=== PATIENT | male | born 1985 | race African-American/Black ===

== ENCOUNTER 2017-06-13 12:27 | Emergency (ER) | payer MEDICAID ==
--- NOTE | 2017-06-13 13:57 | ER Document Report ---
ED ENT - General Chief Complaint: Sore Throat Stated Complaint: SORE THROAT Time Seen by Provider: 06/13/17 12:47 Mode of Arrival: Ambulatory Information source: Patient Notes: 31-year-old male presents to ED for complaint of sore throat 3 days with cough. TRAVEL OUTSIDE OF THE [place] IN LAST 30 DAYS: No - HPI Patient complains to provider of: Nose problem, Throat problem Onset: Other Onset/Duration: Gradual - 3 days Severity: Moderate Pain Level: 4 Context: Recent Illness Location of pain: Nose, Sinus, Throat Associated symptoms: Runny nose, Sinus drainage, Sore throat Similar symptoms previously: Yes Recently seen / treated by doctor: No - Related Data Allergies/Adverse Reactions: No Known Allergies Allergy (Verified 06/13/17 12:31) Past Medical History - General Information source: Patient - Social History Smoking Status: Never Smoker Chew tobacco use (# tins/day): No Frequency of alcohol use: None Drug Abuse: None Family History: Reviewed & Not Pertinent Patient has suicidal ideation: No Patient has homicidal ideation: No - Past Medical History Cardiac Medical History: Reports: None Pulmonary Medical History: Reports: None EENT Medical History: Reports: None Neurological Medical History: Reports: None Endocrine Medical History: Reports: None Renal/ Medical History: Reports: None Malignancy Medical History: Reports None GI Medical History: Reports: None Musculoskeltal Medical History: Reports None Skin Medical History: Reports None Psychiatric Medical History: Reports: None Traumatic Medical History: Reports: None Infectious Medical History: Reports: None Surgical Hx: Negative Past Surgical History: Reports: None - Immunizations Immunizations up to date: Yes Hx Diphtheria, Pertussis, Tetanus Vaccination: Yes Review of Systems - Review of Systems Constitutional: Recent illness EENT: No symptoms reported, Nose discharge, Sinus discharge, Throat pain, Mouth pain Cardiovascular: No symptoms reported Respiratory: No symptoms reported Gastrointestinal: No symptoms reported Genitourinary: No symptoms reported Male Genitourinary: No symptoms reported Musculoskeletal: No symptoms reported Skin: No symptoms reported Hematologic/Lymphatic: No symptoms reported Neurological/Psychological: No symptoms reported Physical Exam - Vital signs Vitals: Temp Pulse Resp BP Pulse Ox 98.8 F 86 16 145/97 H 97 06/13/17 12:30 06/13/17 12:30 06/13/17 12:30 06/13/17 12:30 06/13/17 12:30 Interpretation: Normal - General General appearance: Appears well, Alert - HEENT Head: Normocephalic, Atraumatic Eyes: Normal Pupils: PERRL Ears: Normal External canal: Normal Tympanic membrane: Normal Sinus: Normal Nasal: Purulent discharge, Swelling Mouth/Lips: Normal Mucous membranes: Normal Pharynx: Post nasal drainage, Other - Entire upper palate and tongue were coated with white patches. No exudative tonsils but he did have post nasal drip. Neck: Normal - Respiratory Respiratory status: No respiratory distress Chest status: Nontender Breath sounds: Normal Chest palpation: Normal - Cardiovascular Rhythm: Regular Heart sounds: Normal auscultation Murmur: No - Abdominal Inspection: Normal Distension: No distension Bowel sounds: Normal Tenderness: Nontender Organomegaly: No organomegaly - Back Back: Normal, Nontender - Extremities General upper extremity: Normal inspection, Nontender, Normal color, Normal ROM , Normal temperature General lower extremity: Normal inspection, Nontender, Normal color, Normal ROM , Normal temperature, Normal weight bearing. No: Florentin's sign - Neurological Neuro grossly intact: Yes Cognition: Normal Orientation: AAOx4 Willy Coma Scale Eye Opening: Spontaneous Mcdade Coma Scale Verbal: Oriented Willy Coma Scale Motor: Obeys Commands Willy Coma Scale Total: 15 Speech: Normal Motor strength normal: LUE, RUE, LLE, RLE Sensory: Normal - Psychological Associated symptoms: Normal affect, Normal mood - Skin Skin Temperature: Warm Skin Moisture: Dry Skin Color: Normal Course - Re-evaluation Re-evalutation: 06/13/17 21:02 Entire roof of mouth and tongue were coated with white. Definite candidemia. Patient denies any autoimmune disease or any past medical history. Discussed with Dr. Pena and he wanted Accu-Chek and HIV testing patient refused states he was getting that done at the end of the month. Prescription for Magic mouthwash and nystatin called into [facility] on [address]. Patient was given instructions on how to get to below as this was the cheapest place for him to get it and he does not have insurance. He stated that he would go there is soon as he left the hospital to get this medicine for his very sore throat. - Vital Signs Vital signs: Temp Pulse Resp BP Pulse Ox 98.3 F 78 16 147/96 H 100 06/13/17 14:22 06/13/17 14:22 06/13/17 12:30 06/13/17 14:22 06/13/17 14:22 Discharge - Discharge Clinical Impression: Thrush of mouth and esophagus Condition: Stable Disposition: HOME, SELF-CARE Instructions: Family Physicians / Practices, Oral Thrush ([facility]) Additional Instructions: I have called in a prescription for you for Magic mouthwash and nystatin mouthwash to [facility] on [address]. He will have these medications ready for you when you get there. The phone number for [facility] is is [phone]. They are open to 8 PM tonight. Please brush your tongue and upper mouth 3 times a day until this is cleared. Please make sure you follow-up with your testing for HIV and diabetes and other testing that she stated you are doing next month. Forms: Elevated Blood Pressure
[2017-06-13 14:22] VITALS: BP 147/96
== END 2017-06-13 14:28 | disposition home or self-care (01) ==
LOC: ER 12:27
DX: B37.0 Candidal stomatitis (principal); R05 Cough
CPT/HCPCS: 87070; 87880; 99283

== ENCOUNTER 2017-06-20 13:17 | Emergency (ER) | payer MEDICAID ==
[2017-06-20] MEDS ORDERED: ALBUTEROL SULFATE 0.083% NEB 2.5 MG/3 ML AMPUL NEB ONE (14:04)
--- NOTE | 2017-06-20 14:04 | ER Document Report ---
HPI - HPI Patient complains to provider of: body aches, sore throat, cough Pain Level: 4 Context: Patient is a 31-year-old male who presents emergency department with multiple complaints. Patient states that he was seen here 6 days ago and diagnosed with thrush and sent home with mouth watch which he only started 2 days ago. He presents today complaining of cough and body aches. States he does not have a thermometer at home but admits to fevers and chills. States he has been taking cold medicine sparingly but denies any frequent Motrin, Tylenol. Otherwise he denies any ear pain but admits to runny nose and sore throat but that is improving with the mouthwash. He admits to nonproductive cough denies any nausea vomiting abdominal pain. Also admits to decreased appetite. States he did not receive a flu vaccine this year. Review of the chart shows that he was offered to be worked up for diabetes and HIV at his last visit which he declined. Patient at this time states he has an appointment on July 01 with [facility] for screening of these conditions. He again is declining any workup for those at this time. - REPRODUCTIVE Reproductive: DENIES: : Past Medical History - Social History Smoking Status: Current Some Day Smoker Family History: Reviewed & Not Pertinent Renal/ Medical History: Denies: Hx Peritoneal Dialysis - Immunizations Immunizations up to date: Yes Hx Diphtheria, Pertussis, Tetanus Vaccination: Yes Vertical Provider Document - CONSTITUTIONAL Notes: PHYSICAL EXAM GENERAL: Alert, interacts well. HEAD: Normocephalic, atraumatic. EYES: Pupils equal, round, and reactive to light. Extraocular movements intact. ENT: Ears without any evidence of external auditory canal erythema, cerumen impaction. Tympanic membranes intact without bulging, injection, effusion. Oral mucosa moist, tongue midline. Posterior pharynx and soft palate covered with thrush. Uvula midline. Airway patent. No evidence of tonsillar enlargement, peritonsillar abscess, retropharyngeal abscess. NECK: Full range of motion. Supple. Trachea midline. LUNGS: Decreased air movement noted bilaterally without wheezes, rales, or rhonchi. No respiratory distress. HEART: Regular rate and rhythm. No murmurs, gallops, or rubs. ABDOMEN: Soft, nondistended, nontender. No guarding, rebound, or rigidity.. Bowel sounds present in all 4 quadrants. EXTREMITIES: Moves all 4 extremities spontaneously. No edema, radial and dorsalis pedis pulses 2/4 bilaterally. No cyanosis. NEUROLOGICAL: Alert and oriented x4. Normal speech. PSYCH: Normal affect, normal mood. SKIN: Warm, dry, normal turgor. No rashes or lesions noted. - INFECTION CONTROL TRAVEL OUTSIDE OF THE [place] IN LAST 30 DAYS: No - RESPIRATORY O2 Sat by Pulse Oximetry: 98 Course - Re-evaluation Re-evalutation: 06/20/17 14:05 Patient is a 31-year-old male who presents emergency department with a chief complaint of URI symptoms associated body aches. Patient is hemodynamically stable, no acute distress and afebrile. Presentation is consistent with URI with associated thrush. Patient remains to decline any workup for HIV or diabetes at this time. Patient states that he is following up with [facility] for this evaluation. Patient 06/20/17 15:00 Discharge vitals with an elevated temp. Given this and reported cough and body aches sent for chest x-ray and screening lab work ordered. No evidence of acute infiltrate on chest x-ray. No evidence of leukocytosis or anemia noted on white blood cell CBC. Chemistry without evidence of AK I her elevated creatinine kinase. Patient states he feels much better after IV fluids and Motrin. Discussed with him to continue aggressive fluid management and Motrin will discharge home with steroid pack. Otherwise patient to follow-up with [facility] as scheduled. - Vital Signs Vital signs: Temp Pulse Resp BP Pulse Ox 99.2 F 98 16 139/95 H 98 06/20/17 13:23 06/20/17 13:23 06/20/17 13:23 06/20/17 13:23 06/20/17 13:23 - Laboratory Result Diagrams: 06/20/17 15:08 06/20/17 15:08 - Diagnostic Test Radiology reviewed: Image reviewed, Reports reviewed Discharge - Discharge Clinical Impression: Thrush of mouth and esophagus URI (upper respiratory infection) Qualifiers: URI type: unspecified viral URI Qualified Code(s): J06.9 - Acute upper respiratory infection, unspecified Condition: Good Disposition: HOME, SELF-CARE Instructions: Viral Syndrome ([facility]) Additional Instructions: Please keep your appointment with [facility] for outpatient testing Prescriptions: Methylprednisolone [Medrol Dosepack (4 mg/Tab) 21 Tab/Dosepak] 4 mg PO ASDIR PRN #21 tab.ds.pk PRN Reason:
[2017-06-20] MEDS ORDERED: IBUPROFEN 800 MG TABLET PO ONE (14:46)
[2017-06-20] MEDS ORDERED: NORMAL SALINE 1000 ML 1,000 ML IV PRN (14:53)
--- NOTE | 2017-06-20 15:07 | RADIOLOGY REPORT (SQ) ---
EXAM DESCRIPTION: CHEST PA/LAT COMPLETED DATE/TIME: 06/20/2017 2:59 pm REASON FOR STUDY: cough fever COMPARISON: 07/24/2016 EXAM PARAMETERS: NUMBER OF VIEWS: two views TECHNIQUE: Digital Frontal and Lateral radiographic views of the chest acquired. RADIATION DOSE: NA LIMITATIONS: none FINDINGS: LUNGS AND PLEURA: No opacities, masses or pneumothorax. No pleural effusion. MEDIASTINUM AND HILAR STRUCTURES: No masses or contour abnormalities. HEART AND VASCULAR STRUCTURES: Heart normal size. No evidence for failure. BONES: No acute findings. HARDWARE: None in the chest. OTHER: No other significant finding. IMPRESSION: NO SIGNIFICANT RADIOGRAPHIC FINDING IN THE CHEST. TECHNICAL DOCUMENTATION: JOB ID: [id number] [employer]- All Rights Reserved
[2017-06-20 15:28] LABS: ABSOLUTE LYMPHOCYTES (AUTO) 1.7 10^3/uL (0.5-4.7); ABSOLUTE MONOCYTES (AUTO) 0.8 10^3/uL (0.1-1.4); ABSOLUTE NEUT (AUTO) 5.8 10^3/uL (1.7-8.2); BASOPHILS % (AUTO) 0.1 % (0-2); EOSINOPHILS % (AUTO) 0.1 % (0-6); HEMATOCRIT 37.9 % (37.9-51.0); HEMOGLOBIN 13.1 g/dL (13.5-17.0); HGB HCT DIFFERENCE 1.4; LYMPHOCYTES % (AUTO) 20.5 % (13-45); MEAN CORPUSCULAR HEMOGLOBIN 31.5 pg (27.0-33.4); MEAN CORPUSCULAR HGB CONC 34.5 g/dL (32.0-36.0); MEAN CORPUSCULAR VOLUME 91 fl (80-97); MONOCYTES % (AUTO) 9.9 % (3-13); RED BLOOD COUNT 4.15 10^6/uL (4.35-5.55); RED CELL DISTRIBUTION WIDTH 13.8 % (11.5-14.0); SEGMENTED NEUTROPHILS % (AUTO) 69.4 % (42-78); WHITE BLOOD COUNT 8.3 10^3/uL (4.0-10.5)
[2017-06-20 15:41] LABS: ALANINE AMINOTRANSFERASE 33 U/L (21-72); ALBUMIN 3.5 g/dL (3.5-5.0); ALKALINE PHOSPHATASE 96 U/L (38-126); ANION GAP 14 (5-19); ASPARTATE AMINO TRANSFERASE 47 U/L (17-59); BILIRUBIN,DIRECT 0.5 mg/dL (0.0-0.4); BLOOD UREA NITROGEN 12 mg/dL (7-20); CALCIUM 8.9 mg/dL (8.4-10.2); CARBON DIOXIDE 27 mmol/L (22-30); CHLORIDE 100 mmol/L (98-107); CREATINE KINASE 45 U/L (55-170); CREATININE RESULT 1.11 mg/dL (0.52-1.25); GLUCOSE 95 mg/dL (75-110); POTASSIUM 3.8 mmol/L (3.6-5.0); TOTAL PROTEIN 9.7 g/dL (6.3-8.2)
[2017-06-20 16:00] VITALS: BP 141/78
== END 2017-06-20 16:00 | disposition home or self-care (01) ==
LOC: ER 13:17
DX: J06.9 Acute upper respiratory infection, unspecified (principal); B37.81 Candidal esophagitis; B37.0 Candidal stomatitis; M79.1 Myalgia; F17.200 Nicotine dependence, unspecified, uncomplicated
CPT/HCPCS: 94640; 99284; 96360; 36415; 82550; 85025; 80053; 71020; J3490; J7030

== ENCOUNTER 2017-08-21 13:28 | Emergency (ER) | payer MEDICAID ==
--- NOTE | 2017-08-21 15:58 | RADIOLOGY REPORT (SQ) ---
EXAM DESCRIPTION: HIP LEFT AP/LATERAL COMPLETED DATE/TIME: 08/21/2017 3:51 pm REASON FOR STUDY: fall, pain COMPARISON: None. NUMBER OF VIEWS: Two views. TECHNIQUE: AP pelvis and additional frog-leg view of the left hip. LIMITATIONS: None. FINDINGS: MINERALIZATION: Normal. LEFT HIP: No fracture or dislocation. No worrisome bone lesions. RIGHT HIP: No fracture or dislocation. No worrisome bone lesions. PUBIS AND ISCHIUM: No fracture. PELVIS: No fracture. SACRUM: No fracture or dislocation. No worrisome bone lesions. LOWER LUMBAR SPINE: No fracture or dislocation. No worrisome bone lesions. No significant disc disea se. SOFT TISSUES: No findings. OTHER: No other significant finding. IMPRESSION: NEGATIVE STUDY OF THE LEFT HIP AND PELVIS. NO RADIOGRAPHIC EVIDENCE OF ACUTE INJURY. TECHNICAL DOCUMENTATION: JOB ID: [id number] [employer]- All Rights Reserved
--- NOTE | 2017-08-21 15:58 | RADIOLOGY REPORT (SQ) ---
EXAM DESCRIPTION: WRIST LEFT 3 VIEWS COMPLETED DATE/TIME: 08/21/2017 3:51 pm REASON FOR STUDY: fall, pain COMPARISON: None. NUMBER OF VIEWS: Three views. TECHNIQUE: AP, lateral, and oblique radiographic images acquired of the left wrist. LIMITATIONS: None. FINDINGS: MINERALIZATION: Normal. BONES: No acute fracture or dislocation. No worrisome bone lesions. Normal alignment. SOFT TISSUES: No soft tissue swelling. No foreign body. OTHER: No other significant finding. IMPRESSION: NEGATIVE STUDY OF THE LEFT WRIST. NO RADIOGRAPHIC EVIDENCE OF ACUTE INJURY. TECHNICAL DOCUMENTATION: JOB ID: [id number] [employer]- All Rights Reserved
[2017-08-21 16:07] VITALS: BP 132/88
--- NOTE | 2017-08-21 16:08 | ER Document Report ---
HPI - HPI Pain Level: 5 Context: 31 yo male c/o pain to left wrist and left hip. pt fell playing basketball. Associated Symptoms: None Exacerbated by: Movement, Walking Relieved by: Denies Similar symptoms previously: No Recently seen / treated by doctor: No - ROS Systems Reviewed and Negative: Yes All other systems reviewed and negative - REPRODUCTIVE Reproductive: DENIES: : Past Medical History - General Information source: Patient - Social History Smoking Status: Never Smoker Frequency of alcohol use: Occasional Drug Abuse: None Lives with: Family Family History: Reviewed & Not Pertinent - Medical History Medical History: Negative Renal/ Medical History: Denies: Hx Peritoneal Dialysis - Immunizations Immunizations up to date: Yes Hx Diphtheria, Pertussis, Tetanus Vaccination: Yes Vertical Provider Document - CONSTITUTIONAL Agree With Documented VS: Yes Exam Limitations: No Limitations - INFECTION CONTROL TRAVEL OUTSIDE OF THE [place] IN LAST 30 DAYS: No - HEENT HEENT: Atraumatic, PERRLA - NECK Neck: Normal Inspection, Supple - RESPIRATORY Respiratory: Breath Sounds Normal, No Respiratory Distress - CARDIOVASCULAR Cardiovascular: Regular Rate, Regular Rhythm - BACK Back: Normal Inspection - MUSCULOSKELETAL/EXTREMETIES Musculoskeletal/Extremeties: Tender - left distal radial and ulnar styloid. no deformity., No Edema - distal SMC intact - NEURO Level of Consciousness: Awake, Alert, Appropriate Discharge - Discharge Clinical Impression: Left wrist sprain Qualifiers: Encounter type: initial encounter Qualified Code(s): S63.502A - Unspecified sprain of left wrist, initial encounter Contusion of left hip Qualifiers: Encounter type: initial encounter Qualified Code(s): S70.02XA - Contusion of left hip, initial encounter Condition: Stable Disposition: HOME, SELF-CARE Instructions: Sprain ([facility]), Contusion ([facility]), Temporary Splint ([facility]), Ice & Elevation ([facility]), Ibuprofen (General) ([facility]), Ultram ([facility]) Additional Instructions: Your xrays are negative for fracture use splint as needed for comfort and support ice and elevate injury as much as possible motrin and ultram as needed follow up with primary care if pain persists more than 10 days Prescriptions: Ibuprofen [Motrin 800 mg Tablet] 800 mg PO Q8H PRN #30 tab PRN Reason: Tramadol HCl [Ultram 50 mg Tablet] 50 mg PO ASDIR PRN #20 tablet PRN Reason:
== END 2017-08-21 16:12 | disposition home or self-care (01) ==
LOC: ER 13:28
DX: S63.502A Unspecified sprain of left wrist, initial encounter (principal); S70.02XA Contusion of left hip, initial encounter; W19.XXXA Unspecified fall, initial encounter; Y93.67 Activity, basketball; Y92.39 Other specified sports and athletic area as the place of occurrence of the external cause
CPT/HCPCS: 99283; 73502; 73110; L3908

== ENCOUNTER 2017-09-07 12:14 | Emergency (ER) | payer MEDICAID ==
[2017-09-07 12:23] VITALS: BP 134/95
--- NOTE | 2017-09-07 13:26 | ER Document Report ---
HPI - HPI Quality of pain: Burning Pain Level: 3 Context: Patient presents with a four-day history of thrush. Patient does have a history of HIV and states he is compliant with his antiviral medications. Patient reports that he does not have any detectable viral load at this time. Patient does follow up with his infectious disease doctor next month. Patient denies any other complaints or problems at this time. Patient states that he has been told by his infectious disease doctor that he should not smoke sometimes this can precipitate a thrush exacerbation Associated Symptoms: Other - Thrush. denies: Chest pain, Nonproductive cough, Productive cough, Fever, Nausea, Vomiting Exacerbated by: Denies Relieved by: Denies Similar symptoms previously: Yes Recently seen / treated by doctor: No - ROS ROS below otherwise negative: Yes Systems Reviewed and Negative: Yes All other systems reviewed and negative - CONSTITUTIONAL Constitutional: DENIES: Fever, Chills - EENT EENT: REPORTS: Sore Throat - RESPIRATORY Respiratory: DENIES: Trouble Breathing, Coughing - GASTROINTESTINAL Gastrointestinal: DENIES: Abdominal Pain, Nausea, Patient vomiting, Diarrhea - REPRODUCTIVE Reproductive: DENIES: : - DERM Skin Color: Normal Past Medical History - General Information source: Patient - Social History Smoking Status: Current Every Day Smoker Chew tobacco use (# tins/day): No Frequency of alcohol use: Occasional Drug Abuse: None Occupation: None Family History: Reviewed & Not Pertinent Patient has suicidal ideation: No Patient has homicidal ideation: No Renal/ Medical History: Denies: Hx Peritoneal Dialysis Infectious Medical History: Reports: Hx HIV Surgical Hx: Negative - Immunizations Immunizations up to date: Yes Hx Diphtheria, Pertussis, Tetanus Vaccination: Yes Vertical Provider Document - CONSTITUTIONAL Agree With Documented VS: Yes Exam Limitations: No Limitations General Appearance: WD/WN, No Apparent Distress - INFECTION CONTROL TRAVEL OUTSIDE OF THE [place] IN LAST 30 DAYS: No - HEENT HEENT: Atraumatic, Normocephalic Notes: Thrush to the posterior pharynx - NECK Neck: Normal Inspection, Supple. negative: Lymphadenopathy-Left, Lymphadenopathy-Right - RESPIRATORY Respiratory: Breath Sounds Normal, No Respiratory Distress O2 Sat by Pulse Oximetry: 99 - CARDIOVASCULAR Cardiovascular: Regular Rate, Regular Rhythm, No Murmur - BACK Back: Normal Inspection - MUSCULOSKELETAL/EXTREMETIES Musculoskeletal/Extremeties: MAEW - NEURO Level of Consciousness: Awake, Alert, Appropriate Motor/Sensory: No Motor Deficit - DERM Integumentary: Warm, Dry Course - Re-evaluation Re-evalutation: 09/07/17 13:21 Patient presents with findings consistent with oral candidiasis. Patient encouraged to stay compliant with his antiviral medication and to avoid cigarette smoking. Patient states that he does have an appointment with his infectious disease doctor next month and has been told in the past that it could be related to smoking in addition to his HIV status. Patient states that his viral load has not been detectable. Patient denies any fever or other presenting symptoms. - Vital Signs Vital signs: Temp Pulse Resp BP Pulse Ox 98.6 F 84 16 134/95 H 99 09/07/17 12:22 09/07/17 12:22 09/07/17 12:22 09/07/17 12:22 09/07/17 12:22 Discharge - Discharge Clinical Impression: Thrush Condition: Stable Disposition: HOME, SELF-CARE Instructions: Oral Thrush ([facility]) Additional Instructions: Return immediately for any new or worsening symptoms Followup with your primary care provider, call tomorrow to make a followup appointment Follow-up with your infectious disease doctor for recheck Avoid cigarette smoking Prescriptions: Clotrimazole 10 mg MM 5XD #50 dami Forms: Smoking Cessation Education Referrals: DEYSI HILLS DO [Primary Care Provider] - Follow up as needed
== END 2017-09-07 13:31 | disposition home or self-care (01) ==
LOC: ER 12:14
DX: B37.0 Candidal stomatitis (principal); B20 Human immunodeficiency virus [HIV] disease; F17.200 Nicotine dependence, unspecified, uncomplicated
CPT/HCPCS: 99282

== ENCOUNTER 2017-12-04 10:20 | Emergency (ER) | payer MEDICAID ==
[2017-12-04] MEDS ORDERED: KETOROLAC TROMETHAMINE INJ/PF 30 MG/1 ML SDV IV ONE (10:39)
[2017-12-04] MEDS ORDERED: NORMAL SALINE 1000 ML 1,000 ML IV ONE (10:39)
[2017-12-04] MEDS ORDERED: ACETAMINOPHEN 325 MG TABLET PO ONE (10:40)
--- NOTE | 2017-12-04 10:42 | ER Document Report ---
ED Medical Screen (RME) - General Chief Complaint: Rib Pain Stated Complaint: RIB PAIN Time Seen by Provider: 12/04/17 10:39 Mode of Arrival: Ambulatory Information source: Patient TRAVEL OUTSIDE OF THE [place] IN LAST 30 DAYS: No - HPI Patient complains to provider of: cough, fever, left cp Notes: 12/04/17 10:40 Patient is here with complaints of left-sided chest pain with fever and cough that started yesterday. Pain is worse in his left chest with cough, deep breath , movement. No fall or injury. Denies any chronic medical problems. Physical exam: Patient is nontoxic appearing and in no acute distress. He has mild tachycardia. Few scattered crackles in his lungs. In reviewing his vital signs, he is noted to be tachycardic, tachypneic as well as febrile. Plan: CBC, CMP, lactate, urine, chest x-ray, blood cultures, urine cultures, IV , normal saline, Toradol, Tylenol. An initial examination was made on the patient as part of the triage process, and it was determined a more comprehensive evaluation was necessary. Initial labs were ordered and patient was transferred to another provider in the ED who assumed care and finished evaluation and plan. - Related Data Allergies/Adverse Reactions: No Known Allergies Allergy (Verified 12/04/17 10:21) Past Medical History - Social History Frequency of alcohol use: every 2 days Drug Abuse: None Renal/ Medical History: Denies: Hx Peritoneal Dialysis Infectious Medical History: Reports: Hx HIV - Immunizations Immunizations up to date: Yes Hx Diphtheria, Pertussis, Tetanus Vaccination: Yes Physical Exam - Vital signs Vitals: Temp Pulse Resp BP Pulse Ox 101.4 F H 111 H 24 H 118/72 95 12/04/17 10:12/04/17 10:12/04/17 10:12/04/17 10:12/04/17 10:26 Course - Vital Signs Vital signs: Temp Pulse Resp BP Pulse Ox 101.4 F H 111 H 24 H 118/72 95 12/04/17 10:12/04/17 10:12/04/17 10:12/04/17 10:12/04/17 10:26
--- NOTE | 2017-12-04 11:10 | ER Document Report ---
ED General - General Chief Complaint: Rib Pain Stated Complaint: RIB PAIN Time Seen by Provider: 12/04/17 10:39 Mode of Arrival: Ambulatory Notes: The patient is a 32-year-old male, current smoker, presents with 2 days of a productive cough, fevers and right-sided chest pain that is worse when he coughs. Patient thinks he got his flu shot this year. He denies abdominal pain , syncope, recent travel, headache, neck stiffness, rash, nausea, vomiting, diarrhea, constipation or sick contacts. TRAVEL OUTSIDE OF THE [place] IN LAST 30 DAYS: No - Related Data Allergies/Adverse Reactions: No Known Allergies Allergy (Verified 12/04/17 10:21) Past Medical History - General Information source: Patient - Social History Smoking Status: Current Every Day Smoker Frequency of alcohol use: every 2 days Drug Abuse: None Family History: Reviewed & Not Pertinent Patient has suicidal ideation: No Patient has homicidal ideation: No Renal/ Medical History: Denies: Hx Peritoneal Dialysis Infectious Medical History: Reports: Hx HIV - Immunizations Immunizations up to date: Yes Hx Diphtheria, Pertussis, Tetanus Vaccination: Yes Review of Systems - Review of Systems Notes: REVIEW OF SYSTEMS: CONSTITUTIONAL: +fevers, -chills EENT: -eye pain, -difficulty swallowing, -nasal congestion CARDIOVASCULAR: +right-sided chest pain, -syncope. RESPIRATORY: +cough, -SOB GASTROINTESTINAL: -abdominal pain, -nausea, -vomiting, -diarrhea GENITOURINARY: -dysuria, -hematuria MUSCULOSKELETAL: -back pain, -neck pain SKIN: -rash or skin lesions. HEMATOLOGIC: -easy bruising or bleeding. LYMPHATIC: -swollen, enlarged glands. NEUROLOGICAL: -altered mental status or loss of consciousness, -headache, - neurologic symptoms PSYCHIATRIC: -anxiety, -depression. ALL OTHER SYSTEMS REVIEWED AND NEGATIVE. Physical Exam - Vital signs Vitals: Temp Pulse Resp BP Pulse Ox 101.4 F H 111 H 24 H 118/72 95 12/04/17 10:26 12/04/17 10:26 12/04/17 10:26 12/04/17 10:12/04/17 10:26 - Notes Notes: PHYSICAL EXAMINATION: GENERAL: Well-appearing, well-nourished and in no acute distress. HEAD: Atraumatic, normocephalic. EYES: Pupils equal round and reactive to light, extraocular movements intact, sclera anicteric, conjunctiva are normal. ENT: nares patent, oropharynx clear without exudates. Moist mucous membranes. NECK: Normal range of motion, supple without lymphadenopathy LUNGS: No respiratory distress, scattered crackles. HEART: Mild tachycardia, regular rhythm. ABDOMEN: Soft, nontender, normoactive bowel sounds. No guarding, no rebound. No masses appreciated. EXTREMITIES: Normal range of motion, no pitting or edema. No cyanosis. NEUROLOGICAL: Cranial nerves grossly intact. Normal speech, normal gait. Normal sensory and motor exams. PSYCH: Normal mood, normal affect. SKIN: Warm, Dry, normal turgor, no rashes or lesions noted. Course - Re-evaluation Re-evalutation: Patient with bilateral pneumonia on CTA, but no evidence of PE. He appears well and is in no respiratory distress. He is satting 100% on room air. He remains mildly tachycardic and mildly tachypneic, but is safe for outpatient treatment of his pneumonia. Will send home with clarithromycin and given very strict return precautions. Also counseled him on smoking cessation. - Vital Signs Vital signs: Temp Pulse Resp BP Pulse Ox 98.9 F 111 H 24 H 143/94 H 100 12/04/17 14:55 12/04/17 10:26 12/04/17 15:01 12/04/17 15:00 12/04/17 15:01 - Laboratory Result Diagrams: 12/04/17 10:52 12/04/17 10:52 Laboratory results interpreted by me: 12/04/17 12/04/17 12/04/17 10:52 10:52 10:52 WBC 10.7 H RBC 3.50 L Hgb 12.0 L Hct 33.0 L MCH 34.2 H MCHC 36.3 H Lymphocytes % 11.9 L D-Dimer 1.15 H Glucose 114 H Total Bilirubin 1.4 H Direct Bilirubin 0.7 H Total Protein 8.7 H Urine Protein Urine Ketones Urine Blood Urine Bilirubin Urine Urobilinogen Ur Leukocyte Esterase 12/04/17 11:40 WBC RBC Hgb Hct MCH MCHC Lymphocytes % D-Dimer Glucose Total Bilirubin Direct Bilirubin Total Protein Urine Protein 100 H Urine Ketones 20 H Urine Blood MODERATE H Urine Bilirubin SMALL H Urine Urobilinogen 4.0 H Ur Leukocyte Esterase TRACE H - Diagnostic Test Radiology reviewed: Image reviewed, Reports reviewed Radiology results interpreted by me: CXR: No acute consolidations or pleural effusions. There is some prominence of the bronchovascular markings extending into the left lung base which could represent peribronchial inflammatory changes. Other findings as noted above. CTA Chest: No PE. B/L lower lobe pneumonia. - EKG Interpretation by Me EKG shows normal: Sinus rhythm, Raymond, Intervals, QRS Complexes, ST-T Waves Rate: Tachycardia When compared to previous EKG there are: No significant change Discharge - Discharge Clinical Impression: Bilateral pneumonia Qualifiers: Pneumonia type: due to unspecified organism Lung location: lower lobe of lung Qualified Code(s): J18.1 - Lobar pneumonia, unspecified organism Condition: Stable Disposition: HOME, SELF-CARE Additional Instructions: PNEUMONIA: Your examination indicates that you have pneumonia. This is an infection of the lung tissue, usually caused by bacteria or a virus. Symptoms include cough, fever, shaking chills, chest pain, shortness of breath, and coughing up bloody sputum. Treatment for bacterial pneumonia includes rest, antibiotics for 10 to 14 days, increasing your clear liquid intake, a cool mist humidifier at your bedside, and fever medication. Often, a repeat chest X-ray is performed in a few weeks--even if you feel better--to ascertain whether the infection has completely resolved and no underlying lung problem is present. You should call the physician if you develop persistent vomiting, high fever that does not respond to fever medication, increasing shortness of breath , confusion, or lethargy. Also, failure to improve within two to three days is an indication for re-examination. ANTIBIOTIC THERAPY: You have been given an antibiotic prescription. It's important that you take all the medication, unless instructed otherwise by your physician. Failure to complete the entire course can result in relapse of your condition. Common side effects of antibiotics include nausea, intestinal cramping, or diarrhea. Women may develop vaginal yeast infections, and babies can get yeast (thrush) in the mouth following the use of antibiotics. Contact your physician if you develop significant side effects from this medication. Allergy to this antibiotic can result in hives, wheezing, faintness, or itching. If symptoms of allergy occur, stop the medication and call the doctor. USE OF ACETAMINOPHEN (Tylenol): Acetaminophen may be taken for pain relief or fever control. It's much safer than aspirin, offering a wider range of "safe" dosages. It is safe during . Some brand names are Tylenol, Panadol, Datril, Anacin 3, Tempra, and Liquiprin. Acetaminophen can be repeated every four hours. The following are maximum recommended dosages: WEIGHT Dose Drops Elixir Chewable( 80mg) (LBS.) drprs=droppers tsp=teaspoon 6 40 mg 0.4 ml (1/2) 6-11 80 mg 0.8 ml (full) tsp 1 tab 12-16 120 mg 1 1/2 drprs 3/4 tsp 1 1/2 tabs 17-23 160 mg 2 drprs 1 tsp 2 tabs 24-30 240 mg 3 drprs 1 1/2 tsp 3 tabs 30-35 320 mg 2 tsp 4 tabs 36-41 360 mg 2 1/4 tsp 4 1/2 tabs 42-47 400 mg 2 1/2 tsp 5 tabs 48-53 480 mg 3 tsp 6 tabs 54-59 520 mg 3 1/4 tsp 6 1/2 tabs 60-64 560 mg 3 1/2 tsp 7 tabs 65-70 600 mg 3 3/4 tsp 7 1/2 tabs 71-76 640 mg 4 tsp 8 tabs 77-82 720 mg 4 1/2 tsp 9 tabs 83-88 800 mg 5 tsp 10 tabs >89 pounds or adults 650 mg to 900 mg Acetaminophen can be repeated every four hours. Maximum dose not to exceed 4000 mg a day. These maximum recommended dosages are slightly higher than the dosages written on the product container, but these dosages are very safe and below the toxic dosage for acetaminophen. FOLLOW-UP CARE: If you have been referred to a physician for follow-up care, call the physician s office for an appointment as you were instructed or within the next two days. If you experience worsening or a significant change in your symptoms, notify the physician immediately or return to the Emergency Department at any time for re-evaluation. Prescriptions: Clarithromycin [Clarithromycin ER] 1,000 mg PO DAILY 6 Days tab.er.24h Forms: Elevated Blood Pressure Referrals: [facility] [Outside] - Follow up as needed
[2017-12-04 11:20] LABS: ABSOLUTE LYMPHOCYTES (AUTO) 1.3 10^3/uL (0.5-4.7); ABSOLUTE MONOCYTES (AUTO) 1.1 10^3/uL (0.1-1.4); ABSOLUTE NEUT (AUTO) 8.2 10^3/uL (1.7-8.2); BASOPHILS % (AUTO) 0.1 % (0-2); EOSINOPHILS % (AUTO) 0.1 % (0-6); LYMPHOCYTES % (AUTO) 11.9 % (13-45); MEAN CORPUSCULAR HEMOGLOBIN 34.2 pg (27.0-33.4); MEAN CORPUSCULAR HGB CONC 36.3 g/dL (32.0-36.0); MEAN CORPUSCULAR VOLUME 94 fl (80-97); MONOCYTES % (AUTO) 10.7 % (3-13); PLATELET COUNT 255 10^3/uL (150-450); RED CELL DISTRIBUTION WIDTH 13.6 % (11.5-14.0); SEGMENTED NEUTROPHILS % (AUTO) 77.2 % (42-78); TOTAL CELLS COUNTED % (AUTO) 100 %; WHITE BLOOD COUNT 10.7 10^3/uL (4.0-10.5)
[2017-12-04 11:37] LABS: ALANINE AMINOTRANSFERASE 27 U/L (21-72); ALBUMIN 3.6 g/dL (3.5-5.0); ALKALINE PHOSPHATASE 86 U/L (38-126); ANION GAP 10 (5-19); ASPARTATE AMINO TRANSFERASE 29 U/L (17-59); BILIRUBIN,DIRECT 0.7 mg/dL (0.0-0.4); BILIRUBIN,TOTAL 1.4 mg/dL (0.2-1.3); BLOOD UREA NITROGEN 11 mg/dL (7-20); CARBON DIOXIDE 27 mmol/L (22-30); CHLORIDE 100 mmol/L (98-107); GLUCOSE 114 mg/dL (75-110); POTASSIUM 3.8 mmol/L (3.6-5.0); SODIUM 137.4 mmol/L (137-145); TOTAL PROTEIN 8.7 g/dL (6.3-8.2)
--- NOTE | 2017-12-04 11:43 | RADIOLOGY REPORT (SQ) ---
EXAM DESCRIPTION: CHEST 2 VIEWS COMPLETED DATE/TIME: 12/04/2017 11:23 am REASON FOR STUDY: cp with cough COMPARISON: May 2017 EXAM PARAMETERS: NUMBER OF VIEWS: two views TECHNIQUE: Digital Frontal and Lateral radiographic views of the chest acquired. RADIATION DOSE: NA LIMITATIONS: none FINDINGS: LUNGS AND PLEURA: No acute consolidations or pleural effusions are identified. There is s ome prominence of the bronchovascular markings extending into the left lung base which could represen t peribronchial inflammatory changes. MEDIASTINUM AND HILAR STRUCTURES: No masses or contour abnormalities. HEART AND VASCULAR STRUCTURES: Heart normal size. No evidence for failure. BONES: No acute findings. HARDWARE: None in the chest. OTHER: No other significant finding. IMPRESSION: No acute consolidations or pleural effusions. There is some prominence of the bronchova scular markings extending into the left lung base which could represent peribronchial inflammatory ch anges. Other findings as noted above TECHNICAL DOCUMENTATION: JOB ID: [id number] [email or web address]- All Rights Reserved Reading location - IP/workstation name: [email or web address]
[2017-12-04 12:09] LABS: APPEARANCE,URINE SLIGHTLY-CLOUDY; BILIRUBIN,URINE SMALL (NEGATIVE); COLOR,URINE AMBER; GLUCOSE, URINE NEGATIVE (NEGATIVE); KETONES,URINE 20 mg/dL (NEGATIVE); LEUKOCYTE ESTERASE,URINE TRACE (NEGATIVE); NITRITE,URINE NEGATIVE (NEGATIVE); PROTEIN,URINE 100 mg/dL (NEGATIVE); URINE SPECIFIC GRAVITY 1.027
[2017-12-04 12:19] LABS: A TYPE INFLUENZA AG NEGATIVE (NEGATIVE); B INFLUENZA AG NEGATIVE (NEGATIVE)
--- NOTE | 2017-12-04 14:02 | EKG REPORT ---
SEVERITY:- BORDERLINE ECG - SINUS TACHYCARDIA NONSPECIFIC ST-T CHANGES- INFERIOR LEADS : Confirmed by: Greg Nieves MD 04-Dec-2017 14:01:29
--- NOTE | 2017-12-04 14:09 | RADIOLOGY REPORT (SQ) ---
EXAM DESCRIPTION: CTA CHEST COMPLETED DATE/TIME: 12/04/2017 1:47 pm REASON FOR STUDY: CP, SOB, tachypnea, tachycardia, elevated d-dimer COMPARISON: None. TECHNIQUE: CT scan of the chest performed using helical scanning technique with dynamic intravenous contrast injection. Images reviewed with lung, soft tissue and bone windows. Reconstructed coronal and sagittal MPR images reviewed. Additional 3 dimensional post-processing performed to develop Maximal Intensity Projection images ([place] P). All images stored on PACS. All CT scanners at this facility use dose modulation, iterative reconstruction, and/or weight based d osing when appropriate to reduce radiation dose to as low as reasonably achievable (ALARA). [facility]: Dose Right [facility]: CareDose [facility]: Dose Right [facility]: Teradose 4D [facility]: Smart Wiki-PR CONTRAST TYPE AND DOSE: contrast/concentration: Isovue 370.00 mg/ml; Total Contrast Delivered: 70.0 ml; Total Saline Delivered: 90.0 ml RENAL FUNCTION: GFR > 60. RADIATION DOSE: CT Rad equipment meets quality standard of care and radiation dose reduction techniq ues were employed. CTDIvol: 15.8 - 19.8 mGy. DLP: 641 mGy-cm. . LIMITATIONS: None. FINDINGS: LUNGS AND PLEURA: Patchy subsegmental airspace disease in the middle lobe and right lower lobe. Segmental airspace disease in the left lower lobe. No effusions. AORTA AND GREAT VESSELS: No aneurysm. HEART: No pericardial effusion. No significant coronary artery calcifications. PULMONARY ARTERIES: No emboli visualized in the main pulmonary arteries or the segmental branches. HILAR AND MEDIASTINAL STRUCTURES: Enlarged mediastinal nodes, the largest prevascular measuring 2.8 c m. Subcentimeter left hilar node. HARDWARE: None in the chest. UPPER ABDOMEN: No significant findings. Limited exam. THYROID AND OTHER SOFT TISSUES: No masses. No adenopathy. BONES: No acute or significant finding. 3D MIPS: Confirm above findings. OTHER: No other significant finding. IMPRESSION: 1. No evidence of pulmonary embolus. 2. Bilateral pneumonia. 3. Mediastinal adenopathy, probably reactive. COMMENT: Quality ID # [id number]: Final reports with documentation of one or more dose reduction techniques (e.g., Automated exposure control, adjustment of the mA and/or kV according to patient size, use of iterative reconstruction technique) TECHNICAL DOCUMENTATION: JOB ID: [id number] [employer]- All Rights Reserved Reading location - IP/workstation name: [email or web address]
[2017-12-04] MEDS ORDERED: CLARITHROMYCIN 500 MG TABLET PO ONE (14:47)
[2017-12-04 15:08] VITALS: BP 143/94
== END 2017-12-04 15:23 | disposition home or self-care (01) ==
LOC: ER 10:20
DX: J18.1 Lobar pneumonia, unspecified organism (principal); R07.81 Pleurodynia; R05 Cough; R50.9 Fever, unspecified; F17.200 Nicotine dependence, unspecified, uncomplicated; Z21 Asymptomatic human immunodeficiency virus [HIV] infection status
CPT/HCPCS: 93005; 99284; 96361; 96374; 36415; 87040; 87086; 85025; 80053; 81001; 85379; 83605; 87804; 71046; 71275; 93010; J3490 ×2; J1885; J7030

== ENCOUNTER 2017-12-05 06:56 | Emergency (ER) | payer MEDICAID ==
[2017-12-05] MEDS ORDERED: NAPROXEN 250 MG TABLET PO ONE (07:14)
[2017-12-05] MEDS ORDERED: DOXYCYCLINE HYCLATE 100 MG TABLET PO ONE (07:17)
--- NOTE | 2017-12-05 07:20 | ER Document Report ---
ED General - General Chief Complaint: Chest Pain Stated Complaint: CHEST PAIN Time Seen by Provider: 12/05/17 07:07 Mode of Arrival: Ambulatory Information source: Patient, [facility] Records Notes: 32-year-old male who was diagnosed with bilateral pneumonia off CTA yesterday started on biotics presents with complaints of chest pain. Patient notes he has not started his antibiotics. Notes symptoms have been ongoing now for 3 days patient is a smoker TRAVEL OUTSIDE OF THE [place] IN LAST 30 DAYS: No - HPI Onset: Other Onset/Duration: Persistent Quality of pain: Achy Severity: Mild Pain Level: 1 Associated symptoms: Body/muscle aches, Productive cough, Shortness of breath Exacerbated by: Coughing Relieved by: Denies Similar symptoms previously: Yes Recently seen / treated by doctor: Yes - Related Data Allergies/Adverse Reactions: No Known Allergies Allergy (Verified 12/04/17 10:21) Past Medical History - Social History Smoking Status: Current Every Day Smoker Cigarette use (# per day): Yes Chew tobacco use (# tins/day): No Smoking Education Provided: Yes - Patient counselled regarding cessation for 4 minutes Family History: Reviewed & Not Pertinent Renal/ Medical History: Denies: Hx Peritoneal Dialysis Infectious Medical History: Reports: Hx HIV - Immunizations Immunizations up to date: Yes Hx Diphtheria, Pertussis, Tetanus Vaccination: Yes Review of Systems - Review of Systems Notes: REVIEW OF SYSTEMS: CONSTITUTIONAL : Denies fever, chills, or sweats. Denies recent illness. EENT: Denies eye, ear, throat, or mouth pain or symptoms. Denies nasal or sinus congestion or discharge. Denies throat, tongue, or mouth swelling or difficulty swallowing. CARDIOVASCULAR: Denies chest pain. Denies palpitations or racing or irregular heart beat. Denies ankle edema. RESPIRATORY: Admits to productive cough chest wall pain GASTROINTESTINAL: Denies abdominal pain or distention. Denies nausea, vomiting , or diarrhea. Denies blood in vomitus, stools, or per rectum. Denies black, tarry stools. Denies constipation. GENITOURINARY: Denies difficulty urinating, painful urination, burning, frequency, blood in urine, or discharge. MUSCULOSKELETAL: Denies back or neck pain or stiffness. Denies joint pain or swelling. SKIN: Denies rash, lesions or sores. HEMATOLOGIC : Denies easy bruising or bleeding. LYMPHATIC: Denies swollen, enlarged glands. NEUROLOGICAL: Denies confusion or altered mental status. Denies passing out or loss of consciousness. Denies dizziness or lightheadedness. Denies headache. Denies weakness or paralysis or loss of use of either side. Denies problems with gait or speech. Denies sensory loss, numbness, or tingling. Denies seizures. PSYCHIATRIC: Denies anxiety or stress. Denies depression, suicidal ideation, or homicidal ideation. ALL OTHER SYSTEMS REVIEWED AND NEGATIVE. Dictation was performed using [employer] voice recognition software PHYSICAL EXAMINATION: GENERAL: Well-appearing, well-nourished and in no acute distress. HEAD: Atraumatic, normocephalic. EYES: Pupils equal round and reactive to light, extraocular movements intact, sclera anicteric, conjunctiva are normal. ENT: Nares patent, oropharynx clear without exudates. Moist mucous membranes. NECK: Normal range of motion, supple without lymphadenopathy LUNGS: Rhonchi at the bases bilateral HEART: Regular rate and rhythm without murmurs intermittently tachycardic ABDOMEN: Soft, nontender, nondistended abdomen. No guarding, no rebound. No masses appreciated. Musculoskeletal: Normal range of motion, no pitting or edema. No cyanosis. NEUROLOGICAL: Cranial nerves grossly intact. Normal speech, normal gait. Normal sensory, motor exams PSYCH: Normal mood, normal affect. SKIN: Warm, Dry, normal turgor, no rashes or lesions noted. Physical Exam - Vital signs Vitals: Temp Pulse Resp BP Pulse Ox 98.8 F 92 18 125/65 96 12/05/17 06:57 12/05/17 06:57 12/05/17 06:57 12/05/17 06:57 12/05/17 06:57 Course - Re-evaluation Re-evalutation: 12/05/17 08:01 Patient was offered to switch antibiotics, given that it is noted that clarithromycin he was having difficulty obtaining, a dose of the clarithromycin was given here I did write for the doxycycline just in case. This pain is consistent with chest wall tenderness secondary from the cough After performing a Medical Screening Examination, I estimate there is LOW risk for ACUTE CORONARY SYNDROME, PULMONARY EMBOLI, RESPIRATORY FAILURE, SEPSIS OR MENINGITIS, thus I consider the discharge disposition reasonable. I have reevaluated this patient multiple times and no significant life threatening changes are noted. The patient and I have discussed the diagnosis and risks, and we agree with discharging home with close follow-up. We also discussed returning to the Emergency Department immediately if new or worsening symptoms occur. We have discussed the symptoms which are most concerning (e.g., changing or worsening pain, trouble swallowing or breathing, neck stiffness, fever) that necessitate immediate return. - Vital Signs Vital signs: Temp Pulse Resp BP Pulse Ox 98.8 F 92 24 H 130/77 H 99 12/05/17 06:57 12/05/17 06:57 12/05/17 07:23 12/05/17 07:23 12/05/17 07:23 - Diagnostic Test Radiology reviewed: Image reviewed, Reports reviewed - CTA from previous visit reviewed by myself is consistent with bilateral pneumonia Discharge - Discharge Clinical Impression: Chest wall pain Bilateral pneumonia Qualifiers: Pneumonia type: due to unspecified organism Lung location: lower lobe of lung Qualified Code(s): J18.1 - Lobar pneumonia, unspecified organism Condition: Stable Disposition: HOME, SELF-CARE Instructions: Pneumonia (OM) Additional Instructions: Follow up with your physician tomorrow for further care or return to the ED IMMEDIATELY if symptoms worsen or new concerns occur. If you cannot afford to follow up with your primary care physician a list of low cost clinics have been provided at the end of your discharge papers as well. Prescriptions: Doxycycline Hyclate 100 mg PO BID #14 capsule Naproxen 500 mg PO BID #20 tablet
[2017-12-05] MEDS ORDERED: CLARITHROMYCIN 500 MG TABLET PO ONE (07:30)
[2017-12-05 07:43] VITALS: BP 130/77
== END 2017-12-05 07:43 | disposition home or self-care (01) ==
LOC: ER 06:56
DX: J18.1 Lobar pneumonia, unspecified organism (principal); R07.89 Other chest pain; M79.1 Myalgia; F17.210 Nicotine dependence, cigarettes, uncomplicated; B20 Human immunodeficiency virus [HIV] disease
CPT/HCPCS: 99406; 99283; J3490 ×2

== ENCOUNTER 2017-12-08 01:52 | Emergency (ER) | payer MEDICAID ==
[2017-12-08] MEDS ORDERED: KETOROLAC TROMETHAMINE 60 MG/2 ML SDV IM ONE (03:05)
--- NOTE | 2017-12-08 03:07 | ER Document Report ---
ED General - General Chief Complaint: Flank Pain Stated Complaint: LEFT SIDE PAIN Time Seen by Provider: 12/08/17 02:59 Notes: Patient is a 32-year-old male that comes emergency department for chief complaint of left-sided chest pain, difficulty taking deep breaths, and sharp pain with movement. He was seen 4 days ago, had a CTA of the chest performed and was diagnosed with bilateral pneumonia, he states he is taking the prescribed antibiotic but the area is so sore that he cannot sleep. He states he feels like a sharp pain is getting worse so he came back. He denies nausea or vomiting, dizziness or passing out. He was prescribed naproxen for pain. He smokes intermittently, drinks occasionally, denies recreational drugs, denies any medical history otherwise. TRAVEL OUTSIDE OF THE [place] IN LAST 30 DAYS: No - Related Data Allergies/Adverse Reactions: No Known Allergies Allergy (Verified 12/08/17 02:12) Past Medical History - General Information source: Patient - Social History Smoking Status: Current Some Day Smoker Frequency of alcohol use: Occasional Drug Abuse: None Lives with: Family Family History: Reviewed & Not Pertinent Renal/ Medical History: Denies: Hx Peritoneal Dialysis Infectious Medical History: Reports: Hx HIV Surgical Hx: Negative - Immunizations Immunizations up to date: Yes Hx Diphtheria, Pertussis, Tetanus Vaccination: Yes Review of Systems - Review of Systems Constitutional: No symptoms reported EENT: No symptoms reported Cardiovascular: No symptoms reported Respiratory: See HPI Gastrointestinal: No symptoms reported Genitourinary: No symptoms reported Male Genitourinary: No symptoms reported Musculoskeletal: No symptoms reported Skin: No symptoms reported Hematologic/Lymphatic: No symptoms reported Neurological/Psychological: No symptoms reported Physical Exam - Vital signs Vitals: Temp Pulse Resp BP Pulse Ox 98.0 F 93 20 113/53 L 97 12/08/17 02:16 12/08/17 02:16 12/08/17 02:16 12/08/17 02:16 12/08/17 02:16 Interpretation: Normal - General General appearance: Anxious, Other - Patient slim In distress: Mild - Patient shifting uncomfortably - HEENT Head: Normocephalic, Atraumatic Eyes: Normal Pupils: PERRL - Respiratory Respiratory status: No respiratory distress. No: Respiratory distress, Labored , Tachypnea Chest status: Tender - There is some generalized tenderness over the anterior chest wall, slightly worse on the left, no crepitus, no deformity, no abnormal erythema Breath sounds: Normal. No: Decreased air movement, Wheezing Chest palpation: Normal - Cardiovascular Rhythm: Regular. No: Tachycardia Heart sounds: Normal auscultation, S1 appreciated, S2 appreciated Murmur: No - Abdominal Inspection: Normal Distension: No distension Bowel sounds: Normal Tenderness: Nontender. No: Tender, Guarding Organomegaly: No organomegaly - Back Back: Normal, Nontender. No: Tender, Vertebra tenderness - Extremities General upper extremity: Normal inspection, Nontender, Normal color, Normal ROM , Normal temperature General lower extremity: Normal inspection, Nontender, Normal color, Normal ROM , Normal temperature, Normal weight bearing. No: Florentin's sign - Neurological Neuro grossly intact: Yes Cognition: Normal Orientation: AAOx4 Clare Coma Scale Eye Opening: Spontaneous Clare Coma Scale Verbal: Oriented Clare Coma Scale Motor: Obeys Commands Clare Coma Scale Total: 15 Speech: Normal Motor strength normal: LUE, RUE, LLE, RLE Sensory: Normal - Psychological Associated symptoms: Normal affect, Normal mood - Skin Skin Temperature: Warm Skin Moisture: Dry Skin Color: Normal Course - Re-evaluation Re-evalutation: Review of history indicates the patient has HIV. I asked him about this and he admits that he had not disclose this earlier and he does take medications for this. He believes his CD4 count is normal but he is not sure. Patient asymptomatic after Toradol. this didappeared to help his left-sided chest pain ( he is sitting up comfortably afterwards). No hypoxia, tachypnea, or abnormal lung sounds. He is nontoxic in appearance. Chest x-ray shows worsening pneumonia despite him taking clarithromycin at home. Discussed with patient, recommended additional workup including labs, IV antibiotics, and potential admission for failure of outpatient therapy. Patient declines, states that he feels better, wants to try outpatient management. Discussed the risks of this, patient agrees to return immediately if he worsens, patient will be placed on Levaquin, provided with Toradol, and patient states he has a follow-up memory care in a couple of days. Patient states he will return if he worsens. Discharged with return precautions. - Vital Signs Vital signs: Temp Pulse Resp BP Pulse Ox 97.8 F 83 18 128/78 H 98 12/08/17 05:03 12/08/17 05:03 12/08/17 05:03 12/08/17 05:03 12/08/17 05:03 Discharge - Discharge Clinical Impression: Left sided chest pain Pneumonia Qualifiers: Pneumonia type: due to unspecified organism Laterality: left Lung location: lower lobe of lung Qualified Code(s): J18.1 - Lobar pneumonia, unspecified organism Condition: Stable Disposition: HOME, SELF-CARE Additional Instructions: Your x-ray shows worsening pneumonia in the left lower lobe. I recommend that you switch to the Levaquin antibiotic since you have declined additional treatment here today. Your first does of Levaquin would be tomorrow (you received the dose for today here already). You can take Toradol for pain. Stay hydrated, rest. Follow-up with primary care. Return if you worsen in anyway including difficulty breathing, fever of 100.4 or greater, or any other concerning or worsening symptoms. Prescriptions: Ketorolac Tromethamine [Toradol 10 mg Tablet] 10 mg PO Q8HP PRN #24 tablet PRN Reason: Levofloxacin [Levaquin 750 mg Tablet] 750 mg PO DAILY #4 tablet Referrals: DEYSI HILLS DO [Primary Care Provider] - Follow up as needed
--- NOTE | 2017-12-08 04:13 | RADIOLOGY REPORT (SQ) ---
EXAM DESCRIPTION: XR CHEST 2 VIEWS CLINICAL HISTORY: 32 years Male, chest pain COMPARISON: 5.9.18, 11.23.17 FINDINGS: Adequate lung volume, moderate left lower lobar opacity, moderate left basilar effusion, normal cardiac silhouette, and intact bony thorax. IMPRESSION: Worsened moderate left lower lobar pneumonia.
[2017-12-08] MEDS ORDERED: LEVOFLOXACIN 750 MG TABLET PO ONE (04:43)
[2017-12-08 05:05] VITALS: BP 128/78
== END 2017-12-08 05:05 | disposition home or self-care (01) ==
LOC: ER 01:52
DX: J18.1 Lobar pneumonia, unspecified organism (principal); R10.9 Unspecified abdominal pain; F17.200 Nicotine dependence, unspecified, uncomplicated; B20 Human immunodeficiency virus [HIV] disease
CPT/HCPCS: 99284; 96372; 71046; J1885; J3490

== ENCOUNTER 2018-06-12 12:06 | Inpatient (IN) | payer MEDICAID ==
--- NOTE | 2018-06-12 14:25 | ER Document Report ---
ED Medical Screen (RME) - General Chief Complaint: Sore Throat Stated Complaint: DIFFICULTY SWALLOWING Time Seen by Provider: 06/12/18 13:25 Mode of Arrival: Ambulatory Information source: Patient Notes: Patient is a 32-year-old male who presents with chief complaint of sore throat times 2 days. Patient reports to this provider that he passed out in the lobby and a nurse helped him up into a wheelchair. Patient denies any history of syncope in the past, denies any history of seizures. Patient does report that he was hit in the head 1 week ago while playing basketball. Denies any loss of consciousness at that time. Patient was swabbed for strep as that is his main complaint today is possible strep throat. Patient then had another syncopal episode that was witnessed by this provider as well as security. Patient did hit his head on the ground. Patient had a approximately 15-second duration of mild tremors after the fall. Patient was then woke up, set up and was immediately assisted onto a stretcher charge nurse made aware patient moved to bed for, upgraded to ALLYN 2.. I have greeted and performed a rapid initial assessment of this patient. A comprehensive ED assessment and evaluation of the patient, analysis of test results and completion of the medical decision making process will be conducted by additional ED providers. Dictation of this chart was performed using voice recognition software; therefore, there may be some unintended grammatical errors. TRAVEL OUTSIDE OF THE [place] IN LAST 30 DAYS: No - Related Data Allergies/Adverse Reactions: No Known Allergies Allergy (Verified 06/12/18 12:17) Past Medical History - Social History Chew tobacco use (# tins/day): No Frequency of alcohol use: Social Drug Abuse: None Renal/ Medical History: Denies: Hx Peritoneal Dialysis Infectious Medical History: Reports: Hx HIV - Immunizations Immunizations up to date: Yes Hx Diphtheria, Pertussis, Tetanus Vaccination: Yes Physical Exam - Vital signs Vitals: Pulse Resp BP Pulse Ox 87 14 114/65 99 06/12/18 12:15 06/12/18 12:15 06/12/18 12:15 06/12/18 12:15 Course - Vital Signs Vital signs: Temp Pulse Resp BP Pulse Ox 87 14 114/65 99 06/12/18 12:15 06/12/18 12:15 06/12/18 12:15 06/12/18 12:15 Doctor's Discharge - Discharge Referrals: DEYSI HILLS DO [Primary Care Provider] - Follow up as needed
[2018-06-12] MEDS ORDERED: NORMAL SALINE 1000 ML 1,000 ML IV ONE (14:30)
--- NOTE | 2018-06-12 14:35 | ER Document Report ---
ED General - General Chief Complaint: Sore Throat Stated Complaint: DIFFICULTY SWALLOWING Time Seen by Provider: 06/12/18 13:25 Mode of Arrival: Ambulatory Information source: Patient Notes: Patient is a 32-year-old male who presents emergency department with complaints of a sore throat for the last 2 days. Patient states that he has a history of both strep throat and thrush. Patient states that he is concerned that he might have thrush today. Patient denies any medical problems. He denies a history of HIV. He states that he is not on any medications. While the patient was in the lobby he began feeling lightheaded. Patient had a witnessed syncopal episode. He was unresponsive for about 15 seconds. Some mild tremors were appreciated. Patient denies a history of seizures. TRAVEL OUTSIDE OF THE [place] IN LAST 30 DAYS: No - HPI Onset: Other - 2 days Onset/Duration: Gradual Quality of pain: Achy, Dull Associated symptoms: Other - Syncope Exacerbated by: Denies Relieved by: Denies Similar symptoms previously: Yes Recently seen / treated by doctor: No - Related Data Allergies/Adverse Reactions: No Known Allergies Allergy (Verified 06/12/18 12:17) Past Medical History - General Information source: Patient - Social History Smoking Status: Current Every Day Smoker Chew tobacco use (# tins/day): No Frequency of alcohol use: Social Drug Abuse: None Family History: Reviewed & Not Pertinent Patient has suicidal ideation: No Patient has homicidal ideation: No Renal/ Medical History: Denies: Hx Peritoneal Dialysis Infectious Medical History: Reports: Hx HIV - Immunizations Immunizations up to date: Yes Hx Diphtheria, Pertussis, Tetanus Vaccination: Yes Review of Systems - Review of Systems Constitutional: No symptoms reported EENT: Throat pain Cardiovascular: Syncope, Lightheaded Respiratory: No symptoms reported Gastrointestinal: No symptoms reported Genitourinary: No symptoms reported Male Genitourinary: No symptoms reported Musculoskeletal: No symptoms reported Skin: No symptoms reported Hematologic/Lymphatic: No symptoms reported Neurological/Psychological: No symptoms reported -: Yes All other systems reviewed and negative Physical Exam - Vital signs Vitals: Pulse Resp BP Pulse Ox 87 14 114/65 99 06/12/18 12:15 06/12/18 12:15 06/12/18 12:15 06/12/18 12:15 - Notes Notes: PHYSICAL EXAMINATION: GENERAL: Ill appearing HEAD: Atraumatic, normocephalic. EYES: Pupils equal round and reactive to light, extraocular movements intact, sclera anicteric, pale lower eyelids, conjunctiva are normal. ENT: Nares patent, tongue and oropharynx has white exudates that are able to be scraped off. No tonsillar deviation. Mucus membranes dry. NECK: Normal range of motion, bilateral cervical lymphadenopathy. Partoid swelling bilaterally. LUNGS: Breath sounds clear to auscultation bilaterally and equal. No wheezes rales or rhonchi. HEART: Regular rate and rhythm without murmurs ABDOMEN: Soft, nontender, nondistended abdomen. No guarding, no rebound. No masses appreciated. Rectal: Possible genital warts around the anus. No gross blood. Musculoskeletal: Normal range of motion, no pitting or edema. No cyanosis. NEUROLOGICAL: Cranial nerves grossly intact. Normal speech, normal gait. Normal sensory, motor exams PSYCH: Normal mood, normal affect. SKIN: Warm, Dry, No rashes. Course - Re-evaluation Re-evalutation: 06/12/18 15:10 EKG: Ventricular rate 81, NE interval 128, castration 80, QTc 441, normal sinus rhythm, no ischemic changes. 06/12/18 23:31 Labs and imaging obtained for patient's syncopal episode, parotid swelling, throat pain. Flu/Strep negative. CBC remarkable for leukopenia and anemia. Type and cross ordered. CT head and soft tissue neck obtained. Imaging shows bilateral cystic lesions in the parotid glands. Radiologist differential is Warthin tumor vs parotid sialocele. Anterior and posterior cervical chain lymph nodes are appreciated. Bilateral maxillary sinus mucosal thickening. I discussed the results with the patient. I told him we need to transfuse him blood as his hemoglobin is 3.9 . Patient denies melena, hematochezia, hematuria , hemetemesis. I contacted the hospitalist for admission. I spoke with Dr. Campos. He feels the patient needs to be transferred as we do not have ENT coverage. I contacted [facility] for transfer. Dr. Stapleton accepted transfer. I discussed the plan of care with the patient. He's argumentative and refuses transfer. 2 units of PRBCs ordered and transfused. Patient febrile on re- evaluation. 3rd PRBC held as the patient is having a transfusion reaction. Patient continues to refuse transfer. Says he'll leave [facility]. I contacted Dr. Beth to see if she'll admit the patient. There's no airway compromise. Patient is not having difficulty breathing or swallowing. I feel that the patient can be managed at [facility]. There's oncology available for consult. Dr. Beth came and evaluated the patient in the ED. She agrees to admit the patient. Vitals are currently stable. 06/12/18 23:33 06/12/18 23:39 - Vital Signs Vital signs: Temp Pulse Resp BP Pulse Ox 100.8 F H 89 19 108/65 100 06/12/18 21:55 06/12/18 21:50 06/12/18 21:50 06/12/18 21:41 06/12/18 21:50 - Laboratory Result Diagrams: 06/12/18 22:25 06/12/18 14:05 Laboratory results interpreted by me: 06/12/18 06/12/18 06/12/18 14:05 14:05 14:50 WBC 2.0 L RBC 1.27 L Hgb 3.9 L* Hct 11.4 L* RDW 18.2 H Band Neutrophils % 2 L Abs Neuts (Manual) 1.3 L APTT Total Protein 9.0 H Crossmatch See Detail 06/12/18 06/12/18 22:25 22:25 WBC 3.1 L RBC 1.74 L Hgb 5.4 L Hct 15.5 L RDW 16.8 H Band Neutrophils % Abs Neuts (Manual) APTT 37.5 H Total Protein Crossmatch Discharge - Discharge Clinical Impression: Parotid cyst Anemia Qualifiers: Anemia type: unspecified type Qualified Code(s): D64.9 - Anemia, unspecified Condition: Stable Disposition: ADMITTED INPATIENT Admitting Provider: Hospitalist
[2018-06-12 15:12] LABS: MEAN CORPUSCULAR HGB CONC 34.5 g/dL (32.0-36.0); MEAN CORPUSCULAR VOLUME 90 fl (80-97); PLATELET COUNT 187 10^3/uL (150-450); RED BLOOD COUNT 1.27 10^6/uL (4.35-5.55); RED CELL DISTRIBUTION WIDTH 18.2 % (11.5-14.0)
[2018-06-12] MEDS ORDERED: NORMAL SALINE 250 ML IV PRN (15:15)
[2018-06-12 15:21] LABS: HEMATOCRIT 11.4 % (37.9-51.0)
[2018-06-12 15:29] LABS: ALANINE AMINOTRANSFERASE 42 U/L (21-72); ALBUMIN 3.7 g/dL (3.5-5.0); ALKALINE PHOSPHATASE 62 U/L (38-126); ANION GAP 10 (5-19); ASPARTATE AMINO TRANSFERASE 48 U/L (17-59); BILIRUBIN,DIRECT 0.2 mg/dL (0.0-0.4); BILIRUBIN,TOTAL 0.3 mg/dL (0.2-1.3); BLOOD UREA NITROGEN 14 mg/dL (7-20); CALCIUM 8.6 mg/dL (8.4-10.2); CARBON DIOXIDE 26 mmol/L (22-30); CHLORIDE 106 mmol/L (98-107); GLUCOSE 97 mg/dL (75-110); POTASSIUM 4.1 mmol/L (3.6-5.0); SODIUM 142.4 mmol/L (137-145)
--- NOTE | 2018-06-12 15:30 | RADIOLOGY REPORT (SQ) ---
EXAM DESCRIPTION: CT HEAD WITHOUT COMPLETED DATE/TIME: 06/12/2018 3:16 pm REASON FOR STUDY: trauma COMPARISON: None. TECHNIQUE: Axial images acquired through the brain without intravenous contrast. Images reviewed wi th bone, brain and subdural windows. Additional sagittal and coronal reconstructions were generated. Images stored on PACS. All CT scanners at this facility use dose modulation, iterative reconstruction, and/or weight based d osing when appropriate to reduce radiation dose to as low as reasonably achievable (ALARA). [facility]: Dose Right [facility]: CareDose [facility]: Dose Right [facility]: Teradose 4D [facility]: [employer]form RADIATION DOSE: CT Rad equipment meets quality standard of care and radiation dose reduction techniq ues were employed. CTDIvol: 53.2 mGy. DLP: 1150 mGy-cm. mGy. LIMITATIONS: None. FINDINGS: VENTRICLES: Normal size and contour. CEREBRUM: No masses. No hemorrhage. No midline shift. No evidence for acute infarction. Normal gra y/white matter differentiation. No areas of low density in the white matter. CEREBELLUM: No masses. No hemorrhage. No alteration of density. No evidence for acute infarction. EXTRAAXIAL SPACES: No fluid collections. No masses. ORBITS AND GLOBE: No intra- or extraconal masses. Normal contour of globe without masses. CALVARIUM: No fracture. PARANASAL SINUSES: There is bilateral maxillary sinus mucosal thickening and a small air-fluid level of the left maxillary sinus SOFT TISSUES: There are cystic lesions of the bilateral parotid glands measuring approximately 2.3 x 1.9 cm on the left and 3.7 x 2.4 cm on the right. OTHER: No other significant finding. IMPRESSION: 1. No acute intracranial pathology. 2. Bilateral maxillary sinus mucosal thickening a small air-fluid level of the left maxillary sinus, likely related to sinus disease although facial bone fracture is not excluded. Correlate for point tenderness and suspicion of facial bone trauma and consider additional CT examination of the facial b ones to further evaluate as clinically indicated. 3. Incidental note of cystic lesions of the bilateral parotid glands measuring approximately 2.3 cm on the left and 3.7 cm on the right. Differential considerations include Warthin's tumors which are frequently bilateral and parotid sialoceles. EVIDENCE OF ACUTE STROKE: NO. COMMENT: Quality ID # [id number]: Final reports with documentation of one or more dose reduction techniques (e.g., Automated exposure control, adjustment of the mA and/or kV according to patient size, use of iterative reconstruction technique) TECHNICAL DOCUMENTATION: JOB ID: [id number] [email or web address]- All Rights Reserved Reading location - IP/workstation name: [email or web address]
[2018-06-12 15:32] LABS: A TYPE INFLUENZA AG NEGATIVE (NEGATIVE); B INFLUENZA AG NEGATIVE (NEGATIVE)
[2018-06-12 15:33] LABS: ABSOLUTE LYMPHOCYTES# (MANUAL) 0.5 10^3/uL (0.5-4.7); ABSOLUTE MONOCYTES # (MANUAL) 0.3 10^3/uL (0.1-1.4); ABSOLUTE NEUTROPHILS# (MANUAL) 1.3 10^3/uL (1.7-8.2); BAND NEUTROPHILS % (MANUAL) 2 % (3-5); BASOPHILS % (MANUAL) 0 % (0-2); EOSINOPHILS % (MANUAL) 0 % (0-6); LYMPHOCYTES % (MANUAL) 23 % (13-45); MONOCYTES % (MANUAL) 13 % (3-13); SEGMENTED NEUTROPHILS % (MAN) 62 % (42-78); TOTAL CELLS COUNTED 100
[2018-06-12 15:36] LABS: ANISOCYTOSIS 1+; PLATELET COMMENT ADEQUATE; POIKILOCYTOSIS SLIGHT; TOXIC GRANULATION SLIGHT
[2018-06-12 15:37] LABS: HEMOGLOBIN 3.9 g/dL (13.5-17.0)
--- NOTE | 2018-06-12 15:46 | RADIOLOGY REPORT (SQ) ---
EXAM DESCRIPTION: CT SOFT TISSUE NECK WITH COMPLETED DATE/TIME: 06/12/2018 3:22 pm REASON FOR STUDY: throat pain COMPARISON: Same day CT brain TECHNIQUE: Post IV contrasted scanning from skull base through lung apices with review of bone, soft tissue and lung windows. Reconstructed coronal and sagittal MPR images reviewed. All images stored on PACS. All CT scanners at this facility use dose modulation, iterative reconstruction, and/or weight based d osing when appropriate to reduce radiation dose to as low as reasonably achievable (ALARA). [facility]: Dose Right [facility]: CareDose [facility]: Dose Right [facility]: Teradose 4D [facility]: [employer] CONTRAST TYPE AND DOSE: contrast/concentration: Isovue 350.00 mg/ml; Total Contrast Delivered: 75.0 ml; Total Saline Delivered: 55.0 ml RENAL FUNCTION: None required. The patient is less than 50 years old. RADIATION DOSE: CT Rad equipment meets quality standard of care and radiation dose reduction techniq ues were employed. CTDIvol: 12.8 mGy. DLP: 420 mGy-cm. . LIMITATIONS: None. FINDINGS: SKULL BASE: Intact. MAJOR SALIVARY GLANDS: There are redemonstrated cystic lesions of the bilateral parotid glands center ed near the parotid tail junctions, measuring approximately 2.3 x 1.9 cm on the left and 3.7 x 2.4 cm on the right. LYMPHADENOPATHY: There are enlarged bilateral anterior and posterior cervical chain lymph nodes, the largest level IIA lymph nodes on the right measuring 2.4 x 1.1 cm. MUCOSAL MASSES OR ASYMMETRY: No mucosal masses or asymmetry. LARYNX/CORDS: No abnormal findings. VASCULAR STRUCTURES: The major vessels are patent. LUNG APICES: Clear. BONES: Intact. THYROID: Normal size. No masses. PARANASAL SINUSES: Bilateral maxillary sinus mucosal thickening and small nonspecific left maxillary air-fluid level OTHER: No other significant finding. IMPRESSION: 1. No evidence of retropharyngeal phlegmon or abscess given stated indication of throat pain. 2. Redemonstrated cystic lesions of the bilateral parotid glands measuring approximately 2.3 cm on t he left and 3.7 cm on the right. As on prior, differential considerations include Warthin's tumors, which are frequently bilateral, and parotid sialoceles. 3. Nonspecific enlargement of bilateral cervical lymph nodes, possibly reactive. 4. Bilateral maxillary sinus mucosal thickening and a small air-fluid level of the left maxillary si nus, nonspecific. Correlate for traumatic injury or acute sinusitis. TECHNICAL DOCUMENTATION: JOB ID: [id number] Quality ID # [id number]: Final reports with documentation of one or more dose reduction techniques (e.g., Au tomated exposure control, adjustment of the mA and/or kV according to patient size, use of iterative reconstruction technique) 2010 [employer]- All Rights Reserved Reading location - IP/workstation name: [email or web address]
[2018-06-12] MEDS ORDERED: ACETAMINOPHEN 325 MG TABLET PO ONE (21:57)
[2018-06-12 22:43] LABS: HEMATOCRIT 15.5 % (37.9-51.0); MEAN CORPUSCULAR HEMOGLOBIN 30.9 pg (27.0-33.4); MEAN CORPUSCULAR HGB CONC 34.5 g/dL (32.0-36.0); MEAN CORPUSCULAR VOLUME 90 fl (80-97); PLATELET COUNT 182 10^3/uL (150-450); RED BLOOD COUNT 1.74 10^6/uL (4.35-5.55); RED CELL DISTRIBUTION WIDTH 16.8 % (11.5-14.0); WHITE BLOOD COUNT 3.1 10^3/uL (4.0-10.5)
[2018-06-12 22:45] LABS: HEMOGLOBIN 5.4 g/dL (13.5-17.0)
[2018-06-12] MEDS ORDERED: MAG HYDROX/AL HYDROX/SIMETH SUSP 30 ML UDCUP PO PRN (23:12)
[2018-06-12] MEDS ORDERED: PROMETHAZINE HCL INJ 25 MG/1 ML VIAL IV PRN (23:12)
[2018-06-12] MEDS ORDERED: ACETAMINOPHEN 325 MG TABLET PO PRN (23:12)
[2018-06-12] MEDS ORDERED: TEMAZEPAM 15 MG CAPSULE PO PRN (23:12)
[2018-06-12] MEDS ORDERED: PROMETHAZINE HCL 25 MG TABLET PO PRN (23:12)
[2018-06-12 23:28] LABS: INTERNATIONAL RATION (INR) 1.16; PROTHROMBIN TIME 15.4 SEC (11.4-15.4)
[2018-06-12 23:29] LABS: PARTIAL THROMBOPLASTIN TIME 37.5 SEC (23.5-35.8)
[2018-06-12] MEDS ORDERED: NYSTATIN 500000 UNIT/5 ML UDCUP PO ONE (23:30)
[2018-06-12 23:39] LABS: IRON(TIBC) 180.2 ug/dL (49-181)
[2018-06-12 23:45] LABS: APPEARANCE,URINE CLEAR; BILIRUBIN,URINE NEGATIVE (NEGATIVE); COLOR,URINE YELLOW; GLUCOSE, URINE NEGATIVE (NEGATIVE); KETONES,URINE NEGATIVE (NEGATIVE); LEUKOCYTE ESTERASE,URINE NEGATIVE (NEGATIVE); NITRITE,URINE NEGATIVE (NEGATIVE); PROTEIN,URINE NEGATIVE (NEGATIVE); URINE SPECIFIC GRAVITY 1.041
[2018-06-13 00:06] LABS: URINE AMPHETAMINES SCREEN NEGATIVE; URINE BARBITURATES SCREEN NEGATIVE; URINE BENZODIAZEPINES SCREEN NEGATIVE; URINE COCAINE SCREEN NEGATIVE; URINE MARIJUANA (THC) SCREEN NEGATIVE; URINE METHADONE SCREEN NEGATIVE; URINE PHENCYCLIDINE SCREEN NEGATIVE
[2018-06-13] MEDS ORDERED: NORMAL SALINE 250 ML IV PRN (00:12)
[2018-06-13 00:49] LABS: FOLATE 4.66 ng/mL (>2.76)
--- NOTE | 2018-06-13 01:56 | PDOC H&P ---
History of Present Illness Admission Date/PCP: 06/12/18 23:12 None Patient complains of: Oral thrush History of Present Illness: REGINA SIFUENTES is a 32 year old male who denies any past medical history who came initially complaining of oral thrush, to me he denies having any sore throat but was complaining of having more saliva than the usual. He has history of oral thrush several times ago. I went through his prior admissions and he has history of HIV unknown if he takes his medications. He currently does not follow with any primary care doctor. In the emergency department while he was in the lobby he started feeling lightheaded and had a witnessed a syncopal episode, was unresponsive for 15 minutes and mild tremors were appreciated. Patient denied history of seizures. While patient was examined it was noticed a mass on the right parotid gland area , he tells me that it was secondary to a basketball ball hitting his head [address] of the head was done and it was consistent with a cystic lesion in both parotid glands right 3.7cm and left 2.3cm Laboratory came back and hemoglobin was 3.9 and hematocrit 3.9, the patient denies any bleeding through the rectum, hematemesis or hemoptysis, prior laboratory was from November this year with hemoglobin was 12 and hematocrit 33. 2 units of PRBC given and he was to get the third 1 but he spiked 100.8 temperature. Repeated hemoglobin 5.4 hematocrit 15.5 Patient also complains of diarrhea for the last month, 2 watery episodes a day with a small to moderate the stools, nonbloody. Initially it was felt that the patient was better served in a different facility that accounts with ENT but the patient declined to go as he lives with his mother and he wants her to with him Denies fever, chills, nausea, vomiting, cough, shortness of breath, swallowing problems, wheezing, chest pain, abdominal pain, frequency, hematuria, dysuria or weight loss. Tells me he is hungry and yesterday ate macaroni and cheese without any inconvenience. Past Medical History Pulmonary Medical History: Reports: Pneumonia Infectious Medical History: Reports: HIV, Other Infectious History Note: Recurrent oral thrush Past Surgical History Past Surgical History: Reports: None Social History Smoking Status: Current Some Day Smoker Frequency of Alcohol Use: Social Hx Recreational Drug Use: No Hx Prescription Drug Abuse: No Family History Family History: Reviewed & Not Pertinent Family History: Mother with brain tumor Parental Family History Reviewed: Yes Children Family History Reviewed: NA Sibling(s) Family History Reviewed.: NA Medication/Allergy Home Medications: Clarithromycin [Clarithromycin ER] 1,000 mg PO DAILY 6 Days tab.er.24h Doxycycline Hyclate 100 mg PO BID #14 capsule 12/05/17 Naproxen 500 mg PO BID #20 tablet 12/05/17 Ketorolac Tromethamine [Toradol 10 mg Tablet] 10 mg PO Q8HP PRN #24 tablet 12/08 Levofloxacin [Levaquin 750 mg Tablet] 750 mg PO DAILY #4 tablet 12/08/17 Allergies/Adverse Reactions: No Known Allergies Allergy (Verified 06/12/18 12:17) Review of Systems Review of Systems: As outlined in the HPI, all others negative Physical Exam Vital Signs: Temp Pulse Resp BP Pulse Ox 98.1 F 101 H 18 113/71 98 06/13/18 00:21 06/13/18 00:38 06/13/18 00:01 06/13/18 00:01 06/13/18 00:01 Additional comments: General appearance: Disheveled, skinny, alert and cooperative, and appears to be in no acute distress Head: Right anterior ear mass about 3 cm diameter, nontender, no erythema, no warmth, no secretion. Eyes: PEERL, EOMI, vision is grossly intact. Ears: External auditory canal and tympanic membranes clear, hearing grossly intact. Nose: No nasal discharge. Throat: Oral cavity and pharynx with oral thrush more prominent in the tongue. Pharynx unremarkable. Neck: Neck supple, nontender without lymphadenopathy, masses or thyromegaly. Cardiac: Normal S1 and S2. No S3, S4 or murmurs. Rhythm is regular. There is no peripheral edema, cyanosis or pallor. Extremities are warm and well perfused. Capillary refill is less than 2 seconds. No carotid bruits. Lungs: Clear to auscultation and percussion without rales, rhonchi, wheezing or diminished breath sounds. Not using accessory muscles. Abdomen: Positive bowel sounds. Soft. Nondistended, nontender. No guarding or rebound. No masses. No hepatosplenomegaly Extremities: No significant deformity or joint abnormality. No edema. Peripheral pulses intact. No varicosities. Neurological: Cranial nerves II through XII grossly intact. Strength and sensation symmetric and intact throughout. Reflexes 2+ throughout. Skin: Skin normal color, texture and turgor with no lesions or eruptions, warm and dry. Psychiatric: The mental examination revealed the patient was oriented to person , place, and time. The patient was able to demonstrate good judgment on recent , without hallucinations, abnormal affect or abnormal behaviors. Results Laboratory Results: 06/12/18 06/12/18 06/12/18 13:30 14:05 14:05 WBC 2.0 L RBC 1.27 L Hgb 3.9 L* Hct 11.4 L* MCV 90 MCH 31.0 MCHC 34.5 RDW 18.2 H Plt Count 187 Total Counted 100 Seg Neuts % (Manual) 62 Band Neutrophils % 2 L Lymphocytes % (Manual) 23 Monocytes % (Manual) 13 Eosinophils % (Manual) 0 Basophils % (Manual) 0 Abs Neuts (Manual) 1.3 L Abs Lymphs (Manual) 0.5 Abs Monocytes (Manual) 0.3 Absolute Eos (Manual) 0.0 Abs Basophils (Manual) 0.0 Toxic Granulation SLIGHT Platelet Comment ADEQUATE Poikilocytosis SLIGHT Anisocytosis 1+ PT INR APTT Sodium 142.4 Potassium 4.1 Chloride 106 Carbon Dioxide 26 Anion Gap 10 BUN 14 Creatinine 0.93 Est GFR ( Amer) > 60 Est GFR (Non-Af Amer) > 60 Glucose 97 Calcium 8.6 Total Bilirubin 0.3 Direct Bilirubin 0.2 AST 48 ALT 42 Alkaline Phosphatase 62 Total Protein 9.0 H Albumin 3.7 Urine Color Urine Appearance Urine pH Ur Specific [place] Urine Protein Urine Glucose (UA) Urine Ketones Urine Blood Urine Nitrite Urine Bilirubin Urine Urobilinogen Ur Leukocyte Esterase Urine WBC (Auto) Urine RBC (Auto) Urine Mucus (Auto) Urine Ascorbic Acid Stool Occult Blood Urine Opiates Screen Urine Methadone Screen Ur Barbiturates Screen Ur Phencyclidine Scrn Ur Amphetamines Screen U Benzodiazepines Scrn Urine Cocaine Screen U Marijuana (THC) Screen Influenza A (Rapid) Influenza B (Rapid) Group A Strep Rapid NEGATIVE 06/12/18 06/12/18 06/12/18 14:05 15:48 22:25 WBC 3.1 L RBC 1.74 L Hgb 5.4 L Hct 15.5 L MCV 90 MCH 30.9 MCHC 34.5 RDW 16.8 H Plt Count 182 Total Counted Seg Neuts % (Manual) Band Neutrophils % Lymphocytes % (Manual) Monocytes % (Manual) Eosinophils % (Manual) Basophils % (Manual) Abs Neuts (Manual) Abs Lymphs (Manual) Abs Monocytes (Manual) Absolute Eos (Manual) Abs Basophils (Manual) Toxic Granulation Platelet Comment Poikilocytosis Anisocytosis PT INR APTT Sodium Potassium Chloride Carbon Dioxide Anion Gap BUN Creatinine Est GFR ( Amer) Est GFR (Non-Af Amer) Glucose Calcium Total Bilirubin Direct Bilirubin AST ALT Alkaline Phosphatase Total Protein Albumin Urine Color Urine Appearance Urine pH Ur Specific [place] Urine Protein Urine Glucose (UA) Urine Ketones Urine Blood Urine Nitrite Urine Bilirubin Urine Urobilinogen Ur Leukocyte Esterase Urine WBC (Auto) Urine RBC (Auto) Urine Mucus (Auto) Urine Ascorbic Acid Stool Occult Blood NEGATIVE Urine Opiates Screen Urine Methadone Screen Ur Barbiturates Screen Ur Phencyclidine Scrn Ur Amphetamines Screen U Benzodiazepines Scrn Urine Cocaine Screen U Marijuana (THC) Screen Influenza A (Rapid) NEGATIVE Influenza B (Rapid) NEGATIVE Group A Strep Rapid 06/12/18 06/12/18 06/12/18 22:25 23:11 23:11 WBC RBC Hgb Hct MCV MCH MCHC RDW Plt Count Total Counted Seg Neuts % (Manual) Band Neutrophils % Lymphocytes % (Manual) Monocytes % (Manual) Eosinophils % (Manual) Basophils % (Manual) Abs Neuts (Manual) Abs Lymphs (Manual) Abs Monocytes (Manual) Absolute Eos (Manual) Abs Basophils (Manual) Toxic Granulation Platelet Comment Poikilocytosis Anisocytosis PT 15.4 INR 1.16 APTT 37.5 H Sodium Potassium Chloride Carbon Dioxide Anion Gap BUN Creatinine Est GFR ( Amer) Est GFR (Non-Af Amer) Glucose Calcium Total Bilirubin Direct Bilirubin AST ALT Alkaline Phosphatase Total Protein Albumin Urine Color YELLOW Urine Appearance CLEAR Urine pH 7.0 Ur Specific [place] 1.041 Urine Protein NEGATIVE Urine Glucose (UA) NEGATIVE Urine Ketones NEGATIVE Urine Blood NEGATIVE Urine Nitrite NEGATIVE Urine Bilirubin NEGATIVE Urine Urobilinogen 4.0 H Ur Leukocyte Esterase NEGATIVE Urine WBC (Auto) 1 Urine RBC (Auto) 2 Urine Mucus (Auto) RARE Urine Ascorbic Acid NEGATIVE Stool Occult Blood Urine Opiates Screen NEGATIVE Urine Methadone Screen NEGATIVE Ur Barbiturates Screen NEGATIVE Ur Phencyclidine Scrn NEGATIVE Ur Amphetamines Screen NEGATIVE U Benzodiazepines Scrn NEGATIVE Urine Cocaine Screen NEGATIVE U Marijuana (THC) Screen NEGATIVE Influenza A (Rapid) Influenza B (Rapid) Group A Strep Rapid Impressions: Head CT 06/12/18 14:31 IMPRESSION: 1. No acute intracranial pathology. 2. Bilateral maxillary sinus mucosal thickening a small air-fluid level of the left maxillary sinus, likely related to sinus disease although facial bone fracture is not excluded. Correlate for point tenderness and suspicion of facial bone trauma and consider additional CT examination of the facial bones to further evaluate as clinically indicated. 3. Incidental note of cystic lesions of the bilateral parotid glands measuring approximately 2.3 cm on the left and 3.7 cm on the right. Differential considerations include Warthin's tumors which are frequently bilateral and parotid sialoceles. EVIDENCE OF ACUTE STROKE: NO. Soft Tissue Neck CT 06/12/18 15:10 IMPRESSION: 1. No evidence of retropharyngeal phlegmon or abscess given stated indication of throat pain. 2. Redemonstrated cystic lesions of the bilateral parotid glands measuring approximately 2.3 cm on the left and 3.7 cm on the right. As on prior, differential considerations include Warthin's tumors, which are frequently bilateral, and parotid sialoceles. 3. Nonspecific enlargement of bilateral cervical lymph nodes, possibly reactive. 4. Bilateral maxillary sinus mucosal thickening and a small air-fluid level of the left maxillary sinus, nonspecific. Correlate for traumatic injury or acute sinusitis. Assessment & Plan - Diagnosis (1) Severe anemia Is this a current diagnosis for this admission?: Yes Plan: Patient comes with hemoglobin 3.9 hematocrit 11.4, patient does not seem to be symptomatic, denies any shortness of breath, chest tightness, palpitations, tells me that he has been doing his regular activities. 2 PRBCs given in the emergency department hemoglobin increased to 5.4 with hematocrit 15.5. Patient does not have any active bleeding. Occult blood in the stools was negative. I will place an order for 2 more units of PRBC. Patient had one episode of fever 100.8 yesterday after the second unit. 1 Tylenol given, will continue with transfusion when temperature improves. Anemia workup has been added to prior labs with TSH, folate, ferritin, TIBC, folate, vitamin B12 and reticulocytes. (2) Sialocele Is this a current diagnosis for this admission?: Yes Plan: Bilateral sialoceles, Lesions are not tender, there is no secretion. We do have ENT tomorrow with Dr. Crawford,, will place a consult (3) HIV disease Is this a current diagnosis for this admission?: Yes Plan: Patient denies in the ED having HIV disease and I found face and records from many months ago. Patient does not follow with any primary care, I suspect he is not taking any medication, unknown CD4 count, unknown viral load. I am sending HIV 1 and 2 antibodies. (4) Oral thrush Is this a current diagnosis for this admission?: Yes Plan: Nystatin swish and swallow (5) Acute diarrhea Is this a current diagnosis for this admission?: Yes Plan: Patient is having nonbloody diarrhea for the last 3-4 months, place an order for C. difficile, cultures and Gram stain and white blood cells. (6) DVT prophylaxis Is this a current diagnosis for this admission?: Yes Plan: Lovenox - Time Time Spent: 50 to 70 Minutes - Inpatient Certification Based on my medical assessment, after consideration of the patient's comorbidities, presenting symptoms, or acuity I expect that the services needed warrant INPATIENT care.: Yes I certify that my determination is in accordance with my understanding of Medicare's requirements for reasonable and necessary INPATIENT services [42 CFR 412.3e].: Yes Medical Necessity: Risk of Diagnosis Which Will Require Inpatient Eval/Care/ Monitoring - Risk of worsening anemia with cardiac arrest
[2018-06-13] MEDS: ENOXAPARIN SODIUM INJ 40 MG/0.4 ML DISP.SYRIN SUBCUT SCH (09:41)
[2018-06-13] MEDS: NYSTATIN 500000 UNIT/5 ML UDCUP PO SCH ×4 (10:02→21:26)
--- NOTE | 2018-06-13 10:40 | EKG REPORT ---
SEVERITY:- NORMAL ECG - SINUS RHYTHM : Confirmed by: Grady Archer 13-Jun-2018 10:39:02
--- NOTE | 2018-06-13 10:51 | PROGRESS NOTE E ---
Progress Note NAME: REGINA SIFUENTES : 1985 AGE: 32Y DATE: 06/13/2018 ROOM: 428 SUBJECTIVE: The patient is sitting on the side of the bed. The patient has just had a bowel movement. The patient has completed his fourth unit of blood, currently awaiting repeat labs. The patient is also going to be seen by ENT today. The patient himself denies any specific complaint other than his thrush, which he has received the nystatin for. The patient has been afebrile, his blood pressures have been in a good range, and the patient does not voice any concern at all at this time. REVIEW OF SYSTEMS: The rest of the review of systems is negative. MEDICATIONS: Reviewed. OBJECTIVE: GENERAL: The patient is a 32-year-old -[place] male who is cachectic, does not appear to be distressed. VITAL SIGNS: As follows: Temperature is 98.2, pulse 76, respirations 13, blood pressure is 125/91, oxygen saturation is 100% on room air. SKIN: Warm and dry. No rash, not diaphoretic. HEENT: Pupils are reactive. Mucous membranes appear moist. NECK: The patient does have lymphadenopathy throughout cervical nodes. CARDIOVASCULAR: Normal sinus rhythm. CHEST: Symmetrical, unlabored, clear throughout to auscultation. ABDOMEN: Nondistended. EXTREMITIES: There is no significant edema. PSYCHIATRIC: The patient does have somewhat flat affect and is withdrawn. DIAGNOSTICS: Lab values are as follows. Hematology obtained on 06/12/2018: WBCs are 8.1, hemoglobin 5.4, hematocrit is 25.5, platelet count is 182,000. Chemistry obtained on 06/12/2018: Sodium is 142, potassium 4.1, chloride is 106, carbon dioxide 26, BUN 14, creatinine is 0.93, glucose 97, calcium is 8.6. Iron is 180, TIBC is 250, percent saturation 72, ferritin is 461, B12 is 306, folate is 4.66. IMPRESSION AND PLAN: 1. SYMPTOMATIC SEVERE ANEMIA. The patient's hemoglobin was found to be 3.9. The patient has no evidence of overt blood loss. The patient had a hemoglobin that was normal back in November of this year. The patient does appear at this time to have pancytopenia, most likely due to underlying HIV. Will continue this transfusion and repeat labs for a goal hemoglobin of 10. 2. SIALOCELE. Will have the patient evaluated by Dr. Crawford of ENT. 3. REPORTED HIV DISEASE. It appears that the patient has been diagnosed with HIV although he has denied it to providers. Do not have definitive labs on the chart at this time, currently awaiting an HIV profile. I do have concern with the patient's severity of his Minda and so forth that he is to the stage of AIDS. Will follow. 4. ORAL THRUSH. Will continue Nystatin. DISPOSITION: THE PATIENT IS A FULL CODE. Pending the patient's symptomatology and diagnostic findings, will re-evaluate in the a.m. Time spent on this followup, including assessment/plan, physical examination, patient education, and review of records, is 25 minutes. DICTATING PHYSICIAN: LAKISHA MEZA NP [id number] PHY#: [id number] ID: [id number] JOB#: [id number] ACCT: [id number] cc: >
[2018-06-13 11:39] LABS: PATH REVIEW PATHOLOGIST REVIEWED
[2018-06-13 12:11] LABS: ABSOLUTE LYMPHOCYTES (AUTO) 1.1 10^3/uL (0.5-4.7); ABSOLUTE MONOCYTES (AUTO) 0.3 10^3/uL (0.1-1.4); ABSOLUTE NEUT (AUTO) 1.6 10^3/uL (1.7-8.2); BASOPHILS % (AUTO) 0.2 % (0-2); EOSINOPHILS % (AUTO) 0.7 % (0-6); HEMATOCRIT 20.7 % (37.9-51.0); LYMPHOCYTES % (AUTO) 37.8 % (13-45); MEAN CORPUSCULAR HEMOGLOBIN 31.3 pg (27.0-33.4); MEAN CORPUSCULAR HGB CONC 35.5 g/dL (32.0-36.0); MEAN CORPUSCULAR VOLUME 88 fl (80-97); MONOCYTES % (AUTO) 9.6 % (3-13); PLATELET COUNT 188 10^3/uL (150-450); RED BLOOD COUNT 2.35 10^6/uL (4.35-5.55); RED CELL DISTRIBUTION WIDTH 15.3 % (11.5-14.0); SEGMENTED NEUTROPHILS % (AUTO) 51.7 % (42-78); TOTAL CELLS COUNTED % (AUTO) 100 %
[2018-06-13 12:18] LABS: HEMOGLOBIN 7.3 g/dL (13.5-17.0)
[2018-06-13 12:32] LABS: ALANINE AMINOTRANSFERASE 46 U/L (21-72); ALBUMIN 3.6 g/dL (3.5-5.0); ALKALINE PHOSPHATASE 69 U/L (38-126); ANION GAP 9 (5-19); ASPARTATE AMINO TRANSFERASE 48 U/L (17-59); BILIRUBIN,DIRECT 0.1 mg/dL (0.0-0.4); BILIRUBIN,TOTAL 0.7 mg/dL (0.2-1.3); BLOOD UREA NITROGEN 11 mg/dL (7-20); CALCIUM 8.9 mg/dL (8.4-10.2); CARBON DIOXIDE 26 mmol/L (22-30); CHLORIDE 107 mmol/L (98-107); CREATINE KINASE 45 U/L (55-170); GLUCOSE 89 mg/dL (75-110); PHOSPHORUS 4.2 mg/dL (2.5-4.5); POTASSIUM 4.6 mmol/L (3.6-5.0); SODIUM 142.1 mmol/L (137-145); TOTAL PROTEIN 8.7 g/dL (6.3-8.2)
[2018-06-14 08:59] VITALS: BP 119/79
[2018-06-14] MEDS: ENOXAPARIN SODIUM INJ 40 MG/0.4 ML DISP.SYRIN SUBCUT SCH (09:01)
[2018-06-14 09:04] LABS: HEMATOCRIT 21.2 % (37.9-51.0); MEAN CORPUSCULAR HEMOGLOBIN 31.3 pg (27.0-33.4); MEAN CORPUSCULAR HGB CONC 35.4 g/dL (32.0-36.0); MEAN CORPUSCULAR VOLUME 88 fl (80-97); PLATELET COUNT 192 10^3/uL (150-450); RED CELL DISTRIBUTION WIDTH 15.5 % (11.5-14.0); WHITE BLOOD COUNT 2.8 10^3/uL (4.0-10.5)
[2018-06-14] MEDS: NYSTATIN 500000 UNIT/5 ML UDCUP PO SCH (09:04)
[2018-06-14 09:07] LABS: HEMOGLOBIN 7.5 g/dL (13.5-17.0)
--- NOTE | 2018-06-15 13:12 | DISCHARGE SUMMARY E ---
Discharge Summary NAME: REGINA SIFUENTES : 1985 AGE: 32Y ADMITTED: 06/12/2018 DISCHARGED: 06/14/2018 CODE STATUS: FULL CODE. PRIMARY CARE PROVIDER: Dr. Vikas Esquivel; ENT Dr. Giovani Crawford. DISCHARGE DIAGNOSES: Includes: 1. SEVERE ANEMIA MOST LIKELY DUE TO CHRONIC UNDERLYING DISEASE. 2. HIV, POSSIBLE AIDS. SEROLOGY IS PENDING. 3. SIALOCELE. 4. ORAL THRUSH. DISCHARGE MEDICATIONS: Include: Nystatin 500,000 units p.o. q.i.d. 200 mL with 0 refills. DIET: High calorie, high protein. ACTIVITY: As tolerated. CONDITION: Fair. DIAGNOSTICS: Lab values are as follows: Hematology obtained on 06/14/2018: WBCs are 10.8, hemoglobin is 7.5, hematocrit 21.7, platelet count is 192,000. Coagulation done 06/12/2018: PT is 50.4, INR 1.16. Chemistry obtained on 06/13/2018: Sodium is 142, potassium 4.7, chloride is 107, carbon dioxide 26, BUN 11, creatinine is 0.79. Glucose 89, calcium is 8.9, phosphorous 4.2, magnesium is 1.9, INR is 180, TIBC is 250 percent saturation is 72, ferritin is 461, bilirubin is 0.7, AST 48, ALT 46, shameka-phos 69, CK 45, total protein is 8.7, albumin 3.6, B12 is 306, folate is 4.66, TSH is 6.45, T4 is 0.90. Urinalysis obtained on 06/12/2018: Color: Yellow. Appearance: Clear. PH: 7.0. Specific [place] is 1.004. Protein: Negative. Glucose: Negative. Ketones: Negative. Occult blood: Negative. Nitrite: Negative. Bili: Negative. Urobilinogen 4.0. Leukocyte esterase is negative. WBC is , RBC is 2, mucus rare, ascorbic ascorbic acid. Other body source obtained on 06/12/2018: Stool for occult blood is negative. Other body source obtained on 06/13/2018: Stool for occult blood is negative. Other body source obtained on 06/13/2018: Stool for white blood cells is negative. Toxicology obtained on 06/12/2018: Fajardo negative. Serologies obtained on 06/12/2018: Influenza A and B are negative. Group A strep is negative. HIV antibodies are pending. HIV studies are pending. Microbiology: Throat culture obtained on 06/12/2018 reveals no growth. Stool culture obtained on 06/13/[address] Head [address] obtained on 06/12/2018 reveals no acute intracranial pathology with bilateral maxillary sinus, thickening and small air fluid level of the left maxillary sinus. Cystic lesion noted at the bilateral parotid glands measuring approximately 2.3 cm on the left and 3.7 cm on the right. PHYSICAL EXAMINATION: GENERAL: On examination, the patient is a frail, chronically ill-appearing 32-year-old -Russian male who is awake, alert, and oriented to person, place, time, and situation. He is verbal, conversational, does not appear to be in any acute distress. VITAL SIGNS: Temperature is 98.8, pulse 77, respirations 13, blood pressure is 119/79, oxygen saturation is 100% on room air. SKIN: Warm and dry. No rash. He is not diaphoretic. HEENT: Pupils equal, round and reactive to light and accommodation. Conjunctiva pink. No evidence of JVP. CARDIOVASCULAR SYSTEM: Heart is regular. No rubs. CHEST: Clear, symmetrical, unlabored. ABDOMEN: Soft, nontender. EXTREMITIES: No clubbing, cyanosis, edema. PSYCHIATRIC: The patient does have a flat affect. HISTORY OF PRESENT ILLNESS: The patient is an 32-year-old -Russian male with a past medical history of HIV. The patient presented to the Emergency Department with a chief complaint of oral thrush. According to the patient he had been salivating more than usual. He does have a history of oral thrush for which he has had multiple times. The patient in the past has seen Dr. Esquivel but is not established with primary care at the moment. The patient does not follow with infectious disease either. There has been some concern over the patient's HIV status as at times he will adamantly deny this and other times has admitted to this. The patient has not had any complete blood work regarding this diagnosis done at this facility. Therefore, I went ahead and ordered this so we could have it as part of our record. The patient does not take any antiviral medication. While in the emergency department the patient started feeling lightheaded and had a witnessed syncopal episode and was unresponsive for about 15 minutes. The patient denied any history of seizures. The patient was examined and it was noticed that he had an enlarged right parotid gland. The patient stated that he had been hit by a basketball about 2 weeks prior. In the emergency department the patient's hemoglobin returned to 3.9 and the patient denied any rectal bleeding, no hematemesis, melena, no hematochezia. The patient's previous recorded hemoglobin was from November of this year and his hemoglobin was found to be 12. The patient was referred to the hospital for admission and management. It was initially felt that the patient would be better served in a facility with ENT given that the patient does have these findings on CT, however, the patient declined and actually became belligerent when this was suggested. The patient refused to go to [place] and his mother was with him and wants him to stay here. HOSPITAL COURSE: The patient was admitted to the medical unit. The patient was typed and crossed and transfused a total of 4 units of packed red blood cells. The patient's posttransfusion hemoglobin trended up to 7.3 and 24 hours later the patient's hemoglobin is sustained at 7.5. The patient was treated with Nystatin with significant improvement of his thrush and the patient is ready for discharge. I have discussed with the patient that he absolutely needs to follow up with his primary and with infectious disease. I have explained to the patient that information and acknowledgement of the disease process could be empowering in helping him seek treatment. The patient is not open to this discussion at this time and is quite resistant to the idea of having HIV. The patient's case was discussed with Dr. Crawford with ENT who recommended the patient follow with outpatient and will have fine needle aspiration done of the parotid areas as well as his lymphadenopathy done in an outpatient basis. DISCHARGE PLANNING: The patient is advised to follow up with primary care provider within 1-2 weeks for hospital followup. Time spent on this discharge including assessment, plan, physical examination, patient education, review of records is 35 minutes. DICTATING PHYSICIAN: LAKISHA MEZA NP [id number] PHY#: [id number] ID: [id number] JOB#: [id number] ACCT: [id number] cc:Elena RIDDLE NP >
== END 2018-06-14 11:28 | disposition home or self-care (01) | DRG 809 ==
LOC: ER 12:06 → EH 23:12 → 4S 06-13 00:36
PROVIDERS: ADMIT Internal Medicine; ATTEND Internal Medicine
PROC: 30233N1 Transfusion of Nonautologous Red Blood Cells into Peripheral Vein, Percutaneous Approach (ICD-10-PCS; principal; 2018-06-12)
PROC: 30233N1 Transfusion of Nonautologous Red Blood Cells into Peripheral Vein, Percutaneous Approach (ICD-10-PCS; 2018-06-13)
DX: D61.818 Other pancytopenia (principal); B37.0 Candidal stomatitis; D63.8 Anemia in other chronic diseases classified elsewhere; Z21 Asymptomatic human immunodeficiency virus [HIV] infection status; F17.210 Nicotine dependence, cigarettes, uncomplicated; K11.6 Mucocele of salivary gland; R19.7 Diarrhea, unspecified; Z79.899 Other long term (current) drug therapy
CPT/HCPCS: 36415; 36430; 70450; 70491; 80053; 80307; 81001; 82272; 82550; 82607; 82728; 82746; 83540; 83550; 83735; 84100; 84439; 84443; 85025; 85027; 85045; 85610; 85730; 86701; 86702; 86850; 86900; 86901; 86920; 87045; 87070; 87205; 87804; 87880; 89055; 93005; 93010; 96360; 96361; 99285; J7030; P9016

== ENCOUNTER 2018-06-26 12:47 | Emergency (ER) | payer MEDICAID ==
[2018-06-26] MEDS ORDERED: NYSTATIN 500000 UNIT/5 ML UDCUP PO ONE (14:58)
[2018-06-26] MEDS ORDERED: FLUCONAZOLE 100 MG TABLET PO ONE (14:58)
--- NOTE | 2018-06-26 14:58 | ER Document Report ---
ED Oral Problem - General Chief Complaint: Mouth Problem Stated Complaint: MOUTH PROBLEM Time Seen by Provider: 06/26/18 13:58 Mode of Arrival: Ambulatory Information source: Patient Notes: 32-year-old male presented to ED for complaint of severe sore throat. He states he has had a sore throat for a while and was seen recently and given medication. He states that he lost the medication and has not been taking it and now is much worse. Patient alert and oriented respirations regular and unlabored speaking in full sentences. He does speak with a little bit of muffled to the voice but he is able to swallow pills and water. TRAVEL OUTSIDE OF THE [place] IN LAST 30 DAYS: No - HPI Patient complains to provider of: Sore throat Quality of pain: Burning Severity: Moderate Pain Level: 3 Associated symptoms: White patches in mouth - Very sore throat with large white patches Worsened by: Nothing Relieved by: Nothing Similar symptoms previously: Yes Recently seen / treated by doctor/dentist: Yes - Related Data Allergies/Adverse Reactions: No Known Allergies Allergy (Verified 06/12/18 12:17) Past Medical History - General Information source: Patient - Social History Smoking Status: Never Smoker Chew tobacco use (# tins/day): No Frequency of alcohol use: Occasional Drug Abuse: None Lives with: Parents Family History: Reviewed & Not Pertinent Patient has suicidal ideation: No Patient has homicidal ideation: No - Past Medical History Cardiac Medical History: Reports: None Pulmonary Medical History: Reports: Hx Pneumonia EENT Medical History: Reports: None Neurological Medical History: Reports: None Endocrine Medical History: Reports: None Renal/ Medical History: Reports: None Malignancy Medical History: Reports None GI Medical History: Reports: None Musculoskeletal Medical History: Reports None Skin Medical History: Reports None Psychiatric Medical History: Reports: None Traumatic Medical History: Reports: None Infectious Medical History: Reports: Hx HIV Surgical Hx: Negative Past Surgical History: Reports: None - Immunizations Immunizations up to date: Yes Hx Diphtheria, Pertussis, Tetanus Vaccination: Yes Review of Systems - Review of Systems Notes: REVIEW OF SYSTEMS: CONSTITUTIONAL : Denies fever, chills, or sweats. Denies recent illness. EENT: Patient complains of severe sore throat with large white patches to the mouth tongue and uvula and throat. Denies eye, ear, throat, or mouth pain or symptoms. Denies nasal or sinus congestion or discharge. Patient is an HIV patient who was taken medications but has been off his medications due to not being able to get into his doctor for the couple months CARDIOVASCULAR: Denies chest pain. Denies palpitations or racing or irregular heart beat. Denies ankle edema. RESPIRATORY: Denies cough, cold, or chest congestion. Denies shortness of breath, difficulty breathing, or wheezing. GASTROINTESTINAL: Denies abdominal pain or distention. Denies nausea, vomiting , or diarrhea. Denies blood in vomitus, stools, or per rectum. Denies black, tarry stools. Denies constipation. GENITOURINARY: Denies difficulty urinating, painful urination, burning, frequency, blood in urine, or discharge. MUSCULOSKELETAL: Denies back or neck pain or stiffness. Denies joint pain or swelling. SKIN: Denies rash, lesions or sores. HEMATOLOGIC : Denies easy bruising or bleeding. LYMPHATIC: Denies swollen, enlarged glands. NEUROLOGICAL: Denies confusion or altered mental status. Denies passing out or loss of consciousness. Denies dizziness or lightheadedness. Denies headache. Denies weakness or paralysis or loss of use of either side. Denies problems with gait or speech. Denies sensory loss, numbness, or tingling. Denies seizures. PSYCHIATRIC: Denies anxiety or stress. Denies depression, suicidal ideation, or homicidal ideation. ALL OTHER SYSTEMS REVIEWED AND NEGATIVE. Dictation was performed using [employer] voice recognition software PHYSICAL EXAMINATION: GENERAL: Well-appearing, well-nourished and in no acute distress. HEAD: Atraumatic, normocephalic. EYES: Pupils equal round and reactive to light, extraocular movements intact, sclera anicteric, conjunctiva are normal. ENT: Red oral mucosa with large white patches swelling to the oral mucosa. Patient has been diagnosed with HIV and yeast infections in the mouth. He states he lost his medicine and has not taken it since he was seen last. NECK: Normal range of motion, supple anterior and posterior cervical chain lymphadenopathy LUNGS: Breath sounds clear to auscultation bilaterally and equal. No wheezes rales or rhonchi. HEART: Regular rate and rhythm without murmurs ABDOMEN: Soft, nontender, nondistended abdomen. No guarding, no rebound. No masses appreciated. Musculoskeletal: Normal range of motion, no pitting or edema. No cyanosis. NEUROLOGICAL: Cranial nerves grossly intact. Normal speech, normal gait. Normal sensory, motor exams PSYCH: Normal mood, normal affect. SKIN: Warm, Dry, normal turgor, no rashes or lesions noted. Physical Exam - Vital signs Vitals: Temp Pulse Resp BP Pulse Ox 98.3 F 91 18 120/72 100 06/26/18 13:14 06/26/18 13:14 06/26/18 13:14 06/26/18 13:14 06/26/18 13:14 Course - Re-evaluation Re-evalutation: 06/26/18 16:23 After researching his old records I found that the patient is HIV positive when he came last time and was admitted. When I discussed with the patient he states he knows he has been HIV for over a year and was taken medications but that he could get in with the doctor in [place] recently so he has not been taking his medications for a while. He states that the throat is getting more sore and is getting more difficult to swallow and it feels like it is something hanging in the back of his throat. I explained to him this is due to the thrush that he needs to get back on his HIV medicines and that I would give him some Diflucan in the emergency room and nystatin swish and swallow which is what he was given last visit and at this time he needs to be sure that he does not lose the medicine he needs to use it 4 times a day as described. Patient verbalized understanding and agreement and stated he would be sure to get into with his HIV doctor and get back on his medicines as soon as possible. - Vital Signs Vital signs: Temp Pulse Resp BP Pulse Ox 98 F 86 18 118/68 100 06/26/18 15:09 06/26/18 15:09 06/26/18 15:09 06/26/18 15:09 06/26/18 15:09 Discharge - Discharge Clinical Impression: Oral thrush, HIV disease Condition: Stable Disposition: HOME, SELF-CARE Additional Instructions: Oral Thrush You have thrush. This is a yeast infection of the mucous membranes in the mouth, caused by an organism called tiago. Typical symptoms are redness, tenderness, and white spots "stuck" on the membranes. Thrush often occurs after treatment with antibiotics, particularly in infants. In adults, the infection is unusual. It usually requires further evaluation for a possible hidden disease such as diabetes or a problem with the immune system. Thrush is treated with antifungal medication. The medicine is rubbed into the cheeks. Several days are required for healing. You should return if you do not improve as expected, or if any new or unusual symptoms develop. H.I.V. Information HIV (human immunodeficiency virus) is the virus that causes AIDS. HIV attacks T-cells, part of your immune system. After an initial flu-like illness , symptoms go away for years. The virus remains active and contagious. Symptoms of AIDS begin when T-cell levels fall. These symptoms are caused by unusual infections that strike as the immune system fails. HIV is not passed by usual interpersonal contact. It is passed by contaminated needles, infected blood, or sexual contact. HIV blood testing may not be accurate during early infection. After a suspicious exposure, the HIV test can be performed initially, then repeated in two months, six months, and one year. If you are HIV-positive, you should be followed by a specialist. There is no cure for AIDS, but medication can slow the progress of the disease and control complications. Fluconazole Fluconazole (Diflucan) is an antifungal drug. It is useful for serious fungal infections, but is also excellent for oral or vaginal yeast infections. Diflucan interacts with some medicines. This is a concern if you are taking anticoagulants (such as Coumadin), phenytoin (Dilantin), cyclosporin, or oral hypoglycemics (such as tolbutamide, Orinase, glipizide, Glucotrol, glyburide, DiaBeta, Glynase, and Micronase). Be sure the doctor knows if you are taking one of these medicines. We don't know how Diflucan affects . If you are planning to become , discuss this with your doctor. Diflucan has few side effects. Minor side effects may include nausea, headache, or diarrhea. Call the doctor if you develop a skin rash, shortness of breath, or other new symptoms. FOLLOW-UP CARE: If you have been referred to a physician for follow-up care, call the physician s office for an appointment as you were instructed or within the next two days. If you experience worsening or a significant change in your symptoms, notify the physician immediately or return to the Emergency Department at any time for re-evaluation. Prescriptions: Fluconazole [Diflucan] 150 mg PO ONCE PRN #1 tablet PRN Reason: Nystatin [Mycostatin 302991 Unit/1 ml Susp 60 ml Btl] 5 ml PO QID #60 ml Referrals: DEYSI HILLS DO [Primary Care Provider] - Follow up as needed
[2018-06-26 15:11] VITALS: BP 118/68
== END 2018-06-26 15:09 | disposition home or self-care (01) ==
LOC: ER 12:47
DX: B37.0 Candidal stomatitis (principal); B20 Human immunodeficiency virus [HIV] disease; Z87.01 Personal history of pneumonia (recurrent)
CPT/HCPCS: 99283; 82962; J3490 ×2

== ENCOUNTER 2018-08-01 16:04 | Emergency (ER) | payer MEDICAID ==
[2018-08-01] MEDS ORDERED: NORMAL SALINE 250 ML IV PRN (16:54)
[2018-08-01 17:23] LABS: MEAN CORPUSCULAR HEMOGLOBIN 30.6 pg (27.0-33.4); MEAN CORPUSCULAR HGB CONC 35.9 g/dL (32.0-36.0); MEAN CORPUSCULAR VOLUME 85 fl (80-97); PLATELET COUNT 308 10^3/uL (150-450); RED BLOOD COUNT 1.17 10^6/uL (4.35-5.55); RED CELL DISTRIBUTION WIDTH 15.1 % (11.5-14.0); WHITE BLOOD COUNT 3.5 10^3/uL (4.0-10.5)
[2018-08-01 17:38] LABS: ALANINE AMINOTRANSFERASE 15 U/L (21-72); ALBUMIN 3.9 g/dL (3.5-5.0); ALKALINE PHOSPHATASE 76 U/L (38-126); ANION GAP 7 (5-19); ASPARTATE AMINO TRANSFERASE 23 U/L (17-59); BILIRUBIN,DIRECT 0.2 mg/dL (0.0-0.4); BILIRUBIN,TOTAL 0.6 mg/dL (0.2-1.3); BLOOD UREA NITROGEN 13 mg/dL (7-20); CALCIUM 8.8 mg/dL (8.4-10.2); CARBON DIOXIDE 28 mmol/L (22-30); CHLORIDE 103 mmol/L (98-107); GLUCOSE 109 mg/dL (75-110); SODIUM 138.4 mmol/L (137-145); TOTAL PROTEIN 9.3 g/dL (6.3-8.2)
[2018-08-01 17:46] LABS: HEMOGLOBIN 3.6 g/dL (13.5-17.0)
[2018-08-01 18:01] LABS: ABSOLUTE LYMPHOCYTES# (MANUAL) 0.8 10^3/uL (0.5-4.7); ABSOLUTE MONOCYTES # (MANUAL) 0.5 10^3/uL (0.1-1.4); ABSOLUTE NEUTROPHILS# (MANUAL) 2.2 10^3/uL (1.7-8.2); BASOPHILS % (MANUAL) 0 % (0-2); EOSINOPHILS % (MANUAL) 0 % (0-6); LYMPHOCYTES % (MANUAL) 24 % (13-45); MONOCYTES % (MANUAL) 14 % (3-13); SEGMENTED NEUTROPHILS % (MAN) 62 % (42-78); TOTAL CELLS COUNTED 100
[2018-08-01 18:02] LABS: ANISOCYTOSIS SLIGHT; OVALOCYTES SLIGHT; PLATELET COMMENT ADEQUATE; PLATELET LARGE PRESENT; POIKILOCYTOSIS SLIGHT; TOXIC VACUOLATION PRESENT
--- NOTE | 2018-08-01 20:56 | ER Document Report ---
ED General - General Chief Complaint: Abnormal Lab Results Stated Complaint: ABNORMAL LABS Time Seen by Provider: 08/01/18 16:53 Notes: Patient is here to receive transfusion for a low hemoglobin. Patient is HIV positive. Has no bleeding disorders or loss of blood anywhere. He had a scheduled appointment with his provider today and had blood drawn yesterday in anticipation of this visit today. He was found to have a hemoglobin of three- point sometime and was sent here for transfusion. Patient has had one previous time in mid May when he received blood transfusions. No other transfusions. Patient has not been ill in any way. Has felt somewhat tired. Does have an outbreak of shingles on his right neck. TRAVEL OUTSIDE OF THE [place] IN LAST 30 DAYS: No - Related Data Allergies/Adverse Reactions: No Known Allergies Allergy (Verified 08/01/18 16:05) Past Medical History - Social History Smoking Status: Current Every Day Smoker Chew tobacco use (# tins/day): No Drug Abuse: None Family History: Reviewed & Not Pertinent Patient has suicidal ideation: No Patient has homicidal ideation: No Pulmonary Medical History: Reports: Hx Pneumonia Psychiatric Medical History: Denies: Hx Depression Infectious Medical History: Reports: Hx HIV - Immunizations Immunizations up to date: Yes Hx Diphtheria, Pertussis, Tetanus Vaccination: Yes Review of Systems - Review of Systems Notes: CONSTITUTIONAL : Denies fever. CARDIOVASCULAR: Denies chest pain. RESPIRATORY: Denies cough, chest congestion, or shortness of breath. GASTROINTESTINAL: Denies abdominal pain or nausea, vomiting, or diarrhea. GENITOURINARY: Denies difficulty or painful urinating, urinary frequency, blood in urine. Skin: Herpetic eruption on the right neck. Physical Exam - Vital signs Vitals: Temp Pulse Resp BP Pulse Ox 99.5 F 112 H 22 H 120/58 L 100 08/01/18 16:23 08/01/18 16:23 08/01/18 16:23 08/01/18 16:23 08/01/18 16:23 Interpretation: Normal Notes: PHYSICAL EXAMINATION: GENERAL: Well-appearing, no acute distress. HEAD: Atraumatic, normocephalic. NECK: Normal range of motion, supple. LUNGS: Breath sounds clear and equal bilaterally. HEART: Regular rate and rhythm without murmurs heard. ABDOMEN: Soft, nontender. No guarding or rebound or masses felt. Skin: Right neck as a herpetic vesicular eruption Course - Re-evaluation Re-evalutation: 08/01/18 20:54 Patient's hemoglobin is 3.6. We will plan on giving him 4 units of packed cells. - Vital Signs Vital signs: Temp Pulse Resp BP Pulse Ox 99.2 F 123 H 17 141/114 H 100 08/01/18 20:25 08/01/18 19:25 08/01/18 20:25 08/01/18 20:25 08/01/18 20:01 - Laboratory Result Diagrams: 08/01/18 17:00 08/01/18 17:00 Laboratory results interpreted by me: 08/01/18 08/01/18 08/01/18 17:00 17:00 17:00 WBC 3.5 L RBC 1.17 L Hgb 3.6 L* Hct 10.0 L* RDW 15.1 H Monocytes % (Manual) 14 H ALT 15 L Total Protein 9.3 H Crossmatch See Detail Discharge - Discharge Clinical Impression: Anemia Condition: Stable Disposition: HOME, SELF-CARE Additional Instructions: Anemia, Iron Deficiency You have anemia (a lower than normal amount of red blood cells). Our tests show it's due to lack of iron in your body. In infants and children, iron deficiency is usually due to lack of iron in the diet. In adults, it's most often caused by blood loss (heavy periods or intestinal bleeding) or by . If the cause of iron deficiency is not clear, we evaluate for hidden i ntestinal bleeding. Another possible cause is failure to absorb iron properly. Iron-deficiency is treated with iron supplements. Iron pills can upset your stomach and cause constipation. Taking it with food decreases nausea. Expect the stool to become darker (but not black). Taking iron with a juice high in vitamin C (orange juice, tomato juice) increases absorption. You can increase your dietary iron by eating liver, oysters, and lean beef; wheat germ, peas, and lentils; and molasses, dried prunes, spinach, and broccoli. Contact the doctor at once if you note black or tarry-looking stools, bloody vomiting, shortness of breath, chest pain, or faintness. FOLLOW-UP CARE: If you have been referred to a physician for follow-up care, call the physicians office for an appointment as you were instructed or within the next two days. If you experience worsening or a significant change in your symptoms, notify the physician immediately or return to the Emergency Department at any time for re-evaluation.
[2018-08-02 08:58] LABS: HEMATOCRIT 22.3 % (37.9-51.0); MEAN CORPUSCULAR HEMOGLOBIN 29.7 pg (27.0-33.4); MEAN CORPUSCULAR HGB CONC 35.5 g/dL (32.0-36.0); MEAN CORPUSCULAR VOLUME 84 fl (80-97); PLATELET COUNT 310 10^3/uL (150-450); RED BLOOD COUNT 2.67 10^6/uL (4.35-5.55); RED CELL DISTRIBUTION WIDTH 14.9 % (11.5-14.0); WHITE BLOOD COUNT 4.2 10^3/uL (4.0-10.5)
[2018-08-02 09:00] LABS: HEMOGLOBIN 7.9 g/dL (13.5-17.0)
[2018-08-02 09:23] VITALS: BP 141/95
[2018-08-04 15:49] LABS: PATH REVIEW PATHOLOGIST REVIEWED
== END 2018-08-02 09:23 | disposition home or self-care (01) ==
LOC: ER 16:04
DX: D64.9 Anemia, unspecified (principal); B02.9 Zoster without complications; R53.83 Other fatigue; Z21 Asymptomatic human immunodeficiency virus [HIV] infection status; F17.200 Nicotine dependence, unspecified, uncomplicated
CPT/HCPCS: 99284; 86900; 86901; 36415; 36430; 86850; 85025; 85027; 80053; 86920; P9016

== ENCOUNTER 2018-08-24 17:14 | Emergency (ER) | payer MEDICAID ==
[2018-08-24 17:22] VITALS: BP 126/76
[2018-08-24] MEDS ORDERED: LIDOCAINE 5% (700 MG) TRANSDERMAL ADH..PATCH TP ONE (18:31)
[2018-08-24] MEDS ORDERED: HYDROCODONE/ACETAMINOPHEN 5-325 MG (6 TAB/ER DISP) PO PRN (18:31)
--- NOTE | 2018-08-24 18:34 | ER Document Report ---
HPI - HPI Patient complains to provider of: neck pain Time Seen by Provider: 08/24/18 17:57 Onset: Other - 1 month Onset/Duration: Worse Quality of pain: Burning Pain Level: 5 Context: Patient complains of right-sided neck pain for the past month that worsened over the past few days. Patient had recently been treated for shingles to this area. Patient does have a history of HIV and has been compliant with his antiviral medication. Patient is also taking valacyclovir for the shingles as well as gabapentin for pain relief. Patient states that initially he was not always compliant with the gabapentin as he was having difficulty coordinating the appropriate time to take his medications. Associated Symptoms: Other - Right-sided neck pain Exacerbated by: Denies Relieved by: Denies Similar symptoms previously: No Recently seen / treated by doctor: Yes - ROS ROS below otherwise negative: Yes Systems Reviewed and Negative: Yes All other systems reviewed and negative - CONSTITUTIONAL Constitutional: DENIES: Fever, Chills - NEURO Neurology: DENIES: Headache, Weakness - RESPIRATORY Respiratory: DENIES: Coughing - GASTROINTESTINAL Gastrointestinal: DENIES: Nausea, Patient vomiting - REPRODUCTIVE Reproductive: DENIES: : - MUSCULOSKELETAL Musculoskeletal: REPORTS: Neck Pain. DENIES: Back Pain - DERM Skin Color: Normal Skin Problems: Rash Past Medical History - General Information source: Patient - Social History Smoking Status: Never Smoker Frequency of alcohol use: None Drug Abuse: None Occupation: None Family History: Reviewed & Not Pertinent Pulmonary Medical History: Reports: Hx Pneumonia Renal/ Medical History: Denies: Hx Peritoneal Dialysis Psychiatric Medical History: Denies: Hx Depression Infectious Medical History: Reports: Hx HIV Surgical Hx: Negative - Immunizations Immunizations up to date: Yes Hx Diphtheria, Pertussis, Tetanus Vaccination: Yes Vertical Provider Document - CONSTITUTIONAL Agree With Documented VS: Yes Exam Limitations: No Limitations General Appearance: WD/WN, No Apparent Distress - INFECTION CONTROL TRAVEL OUTSIDE OF THE [place] IN LAST 30 DAYS: No - HEENT HEENT: Atraumatic, Normocephalic Notes: Patient with scarring to right side of neck and a few scattered crusted skin lesions with no surrounding erythema - NECK Neck: negative: Lymphadenopathy-Left, Lymphadenopathy-Right - RESPIRATORY Respiratory: Breath Sounds Normal, No Respiratory Distress - CARDIOVASCULAR Cardiovascular: Regular Rate, Regular Rhythm - BACK Back: Normal Inspection - MUSCULOSKELETAL/EXTREMETIES Musculoskeletal/Extremeties: MAEW - NEURO Level of Consciousness: Awake, Alert, Appropriate Motor/Sensory: No Motor Deficit - DERM Integumentary: Warm, Dry Adult Front & Back Diagram: 1 - Patient with scarring and hypopigmented areas consistent with recent history of shingles. Pt with a few scattered lesions with some crusting, no surrounding erythema. Course - Re-evaluation Re-evalutation: 08/24/18 18:31 Patient with pain after recent shingles outbreak. Patient is already currently taking valacyclovir in addition to gabapentin. Will treat with topical lidocaine and encourage outpatient follow-up with his primary doctor. Patient advised that his doctor may need to increase his dose of gabapentin but that he could discuss this with her. - Vital Signs Vital signs: Temp Pulse Resp BP Pulse Ox 98.2 F 105 H 18 126/76 H 100 08/24/18 17:20 08/24/18 17:20 08/24/18 17:20 08/24/18 17:20 08/24/18 17:20 Discharge - Discharge Clinical Impression: Neuralgia, History of shingles Condition: Stable Disposition: HOME, SELF-CARE Instructions: Shingles ([facility]) Additional Instructions: Return immediately for any new or worsening symptoms Followup with your primary care provider, call tomorrow to make a followup appointment Take your gabapentin as prescribed Prescriptions: Lidocaine [Lidoderm 5% (700 mg) Transdermal Patch] 1 patch TP DAILY PRN #10 adh..patch PRN Reason: Referrals: JULIO CESAR FLORES FNP [NO LOCAL MD] - Follow up tomorrow
== END 2018-08-24 18:46 | disposition home or self-care (01) ==
LOC: ER 17:14
DX: B02.9 Zoster without complications (principal); M79.2 Neuralgia and neuritis, unspecified; M54.2 Cervicalgia; Z21 Asymptomatic human immunodeficiency virus [HIV] infection status; Z79.899 Other long term (current) drug therapy
CPT/HCPCS: 99283; J3490

== ENCOUNTER 2018-10-05 14:48 | Inpatient (IN) | payer MEDICAID ==
--- NOTE | 2018-10-05 15:20 | ER Document Report ---
ED Medical Screen (RME) - General Chief Complaint: Shortness Of Breath Stated Complaint: HEADACHE,WEAKNESS Time Seen by Provider: 10/05/18 15:18 Mode of Arrival: Ambulatory Information source: Patient TRAVEL OUTSIDE OF THE [place] IN LAST 30 DAYS: No - HPI Patient complains to provider of: weakness Onset: Yesterday - pt. with h/o anemia with c/o weakness. Feels like his levels are low again. Denies bleeding - Related Data Allergies/Adverse Reactions: No Known Allergies Allergy (Verified 08/01/18 16:05) Past Medical History Pulmonary Medical History: Reports: Hx Pneumonia Renal/ Medical History: Denies: Hx Peritoneal Dialysis Psychiatric Medical History: Denies: Hx Depression Infectious Medical History: Reports: Hx HIV - Immunizations Immunizations up to date: Yes Hx Diphtheria, Pertussis, Tetanus Vaccination: Yes Physical Exam - Vital signs Vitals: Temp Pulse Resp BP Pulse Ox 99.5 F 100 16 135/66 H 100 10/05/18 15:04 10/05/18 15:04 10/05/18 15:04 10/05/18 15:04 10/05/18 15:04 Course - Vital Signs Vital signs: Temp Pulse Resp BP Pulse Ox 99.5 F 100 16 135/66 H 100 10/05/18 15:04 10/05/18 15:04 10/05/18 15:04 10/05/18 15:04 10/05/18 15:04
[2018-10-05 15:57] LABS: APPEARANCE,URINE CLEAR; BILIRUBIN,URINE NEGATIVE (NEGATIVE); COLOR,URINE STRAW; GLUCOSE, URINE NEGATIVE (NEGATIVE); KETONES,URINE NEGATIVE (NEGATIVE); LEUKOCYTE ESTERASE,URINE NEGATIVE (NEGATIVE); MEAN CORPUSCULAR HEMOGLOBIN 29.4 pg (27.0-33.4); MEAN CORPUSCULAR HGB CONC 35.5 g/dL (32.0-36.0); MEAN CORPUSCULAR VOLUME 83 fl (80-97); NITRITE,URINE NEGATIVE (NEGATIVE); PLATELET COUNT 395 10^3/uL (150-450); PROTEIN,URINE NEGATIVE (NEGATIVE); RED BLOOD COUNT 1.39 10^6/uL (4.35-5.55); RED CELL DISTRIBUTION WIDTH 14.3 % (11.5-14.0); URINE SPECIFIC GRAVITY 1.012; UROBILINOGEN,URINE NEGATIVE mg/dL (<2.0); WHITE BLOOD COUNT 5.9 10^3/uL (4.0-10.5)
[2018-10-05 16:05] LABS: HEMATOCRIT 11.5 % (37.9-51.0)
[2018-10-05 16:08] LABS: HEMOGLOBIN 4.1 g/dL (13.5-17.0)
[2018-10-05 16:09] LABS: ALANINE AMINOTRANSFERASE 20 U/L (21-72); ALBUMIN 4.5 g/dL (3.5-5.0); ALKALINE PHOSPHATASE 77 U/L (38-126); ANION GAP 11 (5-19); ASPARTATE AMINO TRANSFERASE 25 U/L (17-59); BILIRUBIN,DIRECT 0.1 mg/dL (0.0-0.4); BILIRUBIN,TOTAL 0.3 mg/dL (0.2-1.3); BLOOD UREA NITROGEN 15 mg/dL (7-20); CALCIUM 9.8 mg/dL (8.4-10.2); CARBON DIOXIDE 25 mmol/L (22-30); CHLORIDE 100 mmol/L (98-107); GLUCOSE 107 mg/dL (75-110); POTASSIUM 4.4 mmol/L (3.6-5.0); SODIUM 136.2 mmol/L (137-145); TOTAL PROTEIN 9.7 g/dL (6.3-8.2)
[2018-10-05 16:12] LABS: ABSOLUTE LYMPHOCYTES# (MANUAL) 2.6 10^3/uL (0.5-4.7); ABSOLUTE MONOCYTES # (MANUAL) 0.2 10^3/uL (0.1-1.4); ABSOLUTE NEUTROPHILS# (MANUAL) 3.1 10^3/uL (1.7-8.2); BASOPHILS % (MANUAL) 0 % (0-2); EOSINOPHILS % (MANUAL) 0 % (0-6); LYMPHOCYTES % (MANUAL) 44 % (13-45); MONOCYTES % (MANUAL) 4 % (3-13); SEGMENTED NEUTROPHILS % (MAN) 52 % (42-78); TOTAL CELLS COUNTED 100
[2018-10-05 16:14] LABS: ANISOCYTOSIS SLIGHT; OVALOCYTES SLIGHT; PLATELET CLUMPS PRESENT; PLATELET COMMENT ADEQUATE; POIKILOCYTOSIS SLIGHT
[2018-10-05 18:16] LABS: INTERNATIONAL RATION (INR) 1.16; PROTHROMBIN TIME 15.4 SEC (11.4-15.4)
[2018-10-05 18:17] LABS: PARTIAL THROMBOPLASTIN TIME 22.4 SEC (23.5-35.8)
[2018-10-05] MEDS ORDERED: NORMAL SALINE 250 ML IV PRN (19:16)
[2018-10-05 19:42] LABS: IRON(TIBC) 286.5 ug/dL (49-181)
[2018-10-05 19:48] LABS: ABSOLUTE RETICS # 0.007 10^6/uL (0.028-0.122)
--- NOTE | 2018-10-05 19:53 | ER Document Report ---
ED General - General Chief Complaint: Shortness Of Breath Stated Complaint: HEADACHE,WEAKNESS Time Seen by Provider: 10/05/18 15:18 Mode of Arrival: Ambulatory Information source: Patient TRAVEL OUTSIDE OF THE [place] IN LAST 30 DAYS: No - HPI Onset: Other - 3 days. Onset/Duration: Gradual, Constant Quality of pain: No pain Severity: None Pain Level: Denies Associated symptoms: Shortness of breath Exacerbated by: Denies Similar symptoms previously: Yes Recently seen / treated by doctor: Yes - Related Data Allergies/Adverse Reactions: No Known Allergies Allergy (Verified 08/01/18 16:05) Past Medical History - General Information source: Patient - Social History Smoking Status: Never Smoker Frequency of alcohol use: Occasional Drug Abuse: None Family History: Reviewed & Not Pertinent Patient has suicidal ideation: No Patient has homicidal ideation: No Pulmonary Medical History: Reports: Hx Pneumonia Renal/ Medical History: Denies: Hx Peritoneal Dialysis Psychiatric Medical History: Denies: Hx Depression Infectious Medical History: Reports: Hx HIV - Immunizations Immunizations up to date: Yes Hx Diphtheria, Pertussis, Tetanus Vaccination: Yes Review of Systems - Review of Systems Constitutional: No symptoms reported EENT: No symptoms reported Cardiovascular: No symptoms reported Respiratory: Short of breath Gastrointestinal: No symptoms reported Genitourinary: No symptoms reported Male Genitourinary: No symptoms reported Musculoskeletal: No symptoms reported Skin: No symptoms reported Hematologic/Lymphatic: No symptoms reported Neurological/Psychological: No symptoms reported -: Yes All other systems reviewed and negative Physical Exam - Vital signs Vitals: Temp Pulse Resp BP Pulse Ox 99.5 F 100 16 135/66 H 100 10/05/18 15:04 10/05/18 15:04 10/05/18 15:04 10/05/18 15:04 10/05/18 15:04 Interpretation: Normal - General General appearance: Appears well, Alert - HEENT Head: Normocephalic, Atraumatic Eyes: Normal Conjunctiva: Other - Pale Pupils: PERRL - Respiratory Respiratory status: No respiratory distress Chest status: Nontender Breath sounds: Normal Chest palpation: Normal - Cardiovascular Rhythm: Regular Heart sounds: Normal auscultation Murmur: No - Abdominal Inspection: Normal Distension: No distension Bowel sounds: Normal Tenderness: Nontender Organomegaly: No organomegaly - Rectal Notes: Patient refused a rectal exam to check for occult blood in the stool. - Back Back: Normal, Nontender - Extremities General upper extremity: Normal inspection, Nontender, Normal color, Normal ROM, Normal temperature General lower extremity: Normal inspection, Nontender, Normal color, Normal ROM, Normal temperature, Normal weight bearing. No: Florentin's sign - Neurological Neuro grossly intact: Yes Cognition: Normal Orientation: AAOx4 Willy Coma Scale Eye Opening: Spontaneous [place] Coma Scale Verbal: Oriented Willy Coma Scale Motor: Obeys Commands Willy Coma Scale Total: 15 Speech: Normal Motor strength normal: LUE, RUE, LLE, RLE Sensory: Normal - Psychological Associated symptoms: Normal affect, Normal mood - Skin Skin Temperature: Warm Skin Moisture: Dry Skin Color: Normal Course - Vital Signs Vital signs: Temp Pulse Resp BP Pulse Ox 98.0 F 110 H 15 120/69 100 10/05/18 20:01 10/05/18 19:44 10/05/18 20:01 10/05/18 20:01 10/05/18 20:00 - Laboratory Result Diagrams: 10/05/18 15:37 10/05/18 15:37 Laboratory results interpreted by me: 10/05/18 10/05/18 10/05/18 15:37 15:37 15:37 RBC 1.39 L Hgb 4.1 L* Hct 11.5 L* RDW 14.3 H APTT Sodium 136.2 L ALT 20 L Total Protein 9.7 H Urine Blood SMALL H Crossmatch 10/05/18 10/05/18 15:37 17:50 RBC Hgb Hct RDW APTT 22.4 L Sodium ALT Total Protein Urine Blood Crossmatch See Detail - Consults Dr Gomez Cabrera. Time consulted: 17:30 Reason for consultation: 10/05/18 19:58 Severe anemia. Consulted provider: will see as inpatient, other - Transfer of Care Notes: 10/05/18 19:57 Patient will be admitted by the hospitalist Dr Jerry Wesley for further management. 10/05/18 20:01 Discharge - Discharge Clinical Impression: Severe anemia, Symptomatic anemia Condition: Stable Disposition: ADMITTED INPATIENT Admitting Provider: Hospitalist Unit Admitted: Telemetry
[2018-10-05] MEDS ORDERED: MAG HYDROX/AL HYDROX/SIMETH SUSP 30 ML UDCUP PO PRN (20:17)
[2018-10-05] MEDS ORDERED: ACETAMINOPHEN 325 MG TABLET PO PRN (20:17)
[2018-10-05] MEDS ORDERED: MAGNESIUM HYDROXIDE SUSP 30 ML UDCUP PO PRN (20:17)
[2018-10-05] MEDS ORDERED: IPRATROPIUM/ALBUTEROL 0.5-2.5 MG/3 ML AMPUL NEB PRN (20:17)
[2018-10-05 20:39] LABS: RETICULOCYTE COUNT (AUTO) 0.47 % (0.66-2.85)
[2018-10-05 20:50] LABS: FOLATE 8.17 ng/mL (>2.76)
[2018-10-06] MEDS: HEPARIN SOD (PORCINE) 5,000 UNIT/ML 1 ML SYRINGE SUBCUT SCH ×3 (01:21→13:56)
[2018-10-06] MEDS ORDERED: ACETAMINOPHEN 325 MG TABLET PO PRN (01:30)
--- NOTE | 2018-10-06 04:53 | PDOC H&P ---
History of Present Illness Admission Date/PCP: 10/05/18 20:22 Patient complains of: Shortness of breath and fatigue History of Present Illness: REGINA SIFUENTES is a 32 year old male with a past medical history of HIV with recently initiated [employer] NA and profound anemia requiring transfusion of packed red blood cells. He has scheduled follow-up for the anemia and possible bone marrow biopsy in [facility] October 14 however had exceptional symptoms prompting evaluation in the emergency room where he is found to have a hemoglobin of only 4.1. He denies fever, nausea or vomiting, dark colored stool or discolored urine. He admits previous episode requiring transfusion. In the emergency room he has 2 units of packed red blood cells ordered and a consult to hematology and hospitalist for admission. Patient denies fever chest pain shortness of breath nausea or vomiting. Past Medical History Pulmonary Medical History: Reports: Pneumonia Psychiatric Medical History: Denies: Depression Hematology: Reports: Anemia Infectious Medical History: Reports: HIV Social History Information Source: Patient Lives with: Family Smoking Status: Never Smoker Frequency of Alcohol Use: Occasional Hx Recreational Drug Use: No Drugs: None Hx Prescription Drug Abuse: No - Advance Directive Resuscitation Status: Full Code Family History Family History: COPD, Hypertension Parental Family History Reviewed: Yes Children Family History Reviewed: Yes Sibling(s) Family History Reviewed.: Yes Medication/Allergy Home Medications: Darunavir/Cobicistat [Prezcobix 800 mg-150 mg Tablet] 1 tab PO DAILY 10/06/18 Emtricitabine/Tenofov Alafenam [Descovy 200-25 mg Tablet] 1 tab PO DAILY 10/06/18 Gabapentin 1 cap PO QHS 10/06/18 Sulfamethoxazole/Trimethoprim [Sulfamethoxazole-Tmp Ss Tablet] 1 each PO TID 10/06/18 Allergies/Adverse Reactions: No Known Allergies Allergy (Verified 08/01/18 16:05) Review of Systems Constitutional: PRESENT: as per HPI, fatigue, weakness, weight loss. ABSENT: anorexia, chills, fever(s) Eyes: ABSENT: visual disturbances Ears: ABSENT: hearing changes Cardiovascular: ABSENT: chest pain, dyspnea on exertion, edema, orthropnea, palpitations Respiratory: PRESENT: dyspnea. ABSENT: cough, hemoptysis Gastrointestinal: ABSENT: abdominal pain, constipation, diarrhea, hematemesis, hematochezia, nausea, vomiting Genitourinary: ABSENT: dysuria, hematuria Musculoskeletal: ABSENT: joint swelling Integumentary: ABSENT: rash, wounds Neurological: ABSENT: abnormal gait, abnormal speech, confusion, dizziness, focal weakness, syncope Psychiatric: ABSENT: anxiety, depression, homidical ideation, suicidal ideation Endocrine: ABSENT: cold intolerance, heat intolerance, polydipsia, polyuria Physical Exam Vital Signs: Temp Pulse Resp BP Pulse Ox 99.7 F 108 H 20 120/51 L 99 10/06/18 02:50 10/06/18 02:50 10/06/18 02:50 10/06/18 02:50 10/06/18 02:50 Intake & Output 10/04/18 10/05/18 10/06/18 10:59 11:59 11:59 Intake Total 650 Balance 650 Weight 75.5 kg General appearance: PRESENT: no acute distress, cooperative, thin, well- developed, well-nourished, other - Chronically ill-appearing Head exam: PRESENT: atraumatic, normocephalic Eye exam: PRESENT: conjunctiva pink, EOMI, PERRLA. ABSENT: scleral icterus Ear exam: PRESENT: normal external ear exam Mouth exam: PRESENT: moist, tongue midline Neck exam: ABSENT: carotid bruit, JVD, lymphadenopathy, thyromegaly Respiratory exam: PRESENT: clear to auscultation jovanni. ABSENT: rales, rhonchi, wheezes Cardiovascular exam: PRESENT: RRR. ABSENT: diastolic murmur, rubs, systolic murmur Pulses: PRESENT: normal dorsalis pedis pul Vascular exam: PRESENT: normal capillary refill GI/Abdominal exam: PRESENT: normal bowel sounds, soft. ABSENT: distended, guarding, mass, organolmegaly, rebound, tenderness Rectal exam: PRESENT: deferred Extremities exam: PRESENT: full ROM. ABSENT: calf tenderness, clubbing, pedal edema Neurological exam: PRESENT: alert, awake, oriented to person, oriented to place, oriented to time, oriented to situation, CN II-XII grossly intact. ABSENT: motor sensory deficit Psychiatric exam: PRESENT: appropriate affect, normal mood. ABSENT: homicidal ideation, suicidal ideation Skin exam: PRESENT: dry, intact, warm. ABSENT: cyanosis, rash Results Laboratory Results: 10/05/18 15:37 10/05/18 15:37 10/05/18 10/05/18 10/05/18 15:37 15:37 15:37 WBC 5.9 RBC 1.39 L Hgb 4.1 L* Hct 11.5 L* MCV 83 MCH 29.4 MCHC 35.5 RDW 14.3 H Plt Count 395 Seg Neutrophils % Not Reportable Lymphocytes % Not Reportable Monocytes % Not Reportable Eosinophils % Not Reportable Basophils % Not Reportable Absolute Neutrophils Not Reportable Absolute Lymphocytes Not Reportable Absolute Monocytes Not Reportable Absolute Eosinophils Not Reportable Absolute Basophils Not Reportable Retic Count (auto) Absolute Retic Sodium 136.2 L Potassium 4.4 Chloride 100 Carbon Dioxide 25 Anion Gap 11 BUN 15 Creatinine 1.07 Est GFR ( Amer) > 60 Est GFR (Non-Af Amer) > 60 Glucose 107 Calcium 9.8 Iron TIBC % Saturation Ferritin Total Bilirubin 0.3 AST 25 ALT 20 L Alkaline Phosphatase 77 Total Protein 9.7 H Albumin 4.5 Vitamin B12 Folate Urine Color STRAW Urine Appearance CLEAR Urine pH 7.0 Ur Specific [place] 1.012 Urine Protein NEGATIVE Urine Glucose (UA) NEGATIVE Urine Ketones NEGATIVE Urine Blood SMALL H Urine Nitrite NEGATIVE Ur Leukocyte Esterase NEGATIVE Urine WBC (Auto) 1 Urine RBC (Auto) 1 Blood Type Antibody Screen 10/05/18 10/05/18 10/05/18 15:37 15:37 15:37 WBC RBC Hgb Hct MCV MCH MCHC RDW Plt Count Seg Neutrophils % Lymphocytes % Monocytes % Eosinophils % Basophils % Absolute Neutrophils Absolute Lymphocytes Absolute Monocytes Absolute Eosinophils Absolute Basophils Retic Count (auto) 0.47 L Absolute Retic 0.007 L Sodium Potassium Chloride Carbon Dioxide Anion Gap BUN Creatinine Est GFR ( Amer) Est GFR (Non-Af Amer) Glucose Calcium Iron 286.5 H TIBC 290 % Saturation 99 Ferritin 1070.00 H Total Bilirubin AST ALT Alkaline Phosphatase Total Protein Albumin Vitamin B12 429.0 Folate 8.17 Urine Color Urine Appearance Urine pH Ur Specific [place] Urine Protein Urine Glucose (UA) Urine Ketones Urine Blood Urine Nitrite Ur Leukocyte Esterase Urine WBC (Auto) Urine RBC (Auto) Blood Type A POSITIVE Antibody Screen NEGATIVE Assessment & Plan - Diagnosis (1) Symptomatic anemia Is this a current diagnosis for this admission?: Yes Plan: Transfuse 2 units of packed red blood cells, follow-up CBC, anemia labs, hematology consult. (2) HIV (human immunodeficiency virus infection) Is this a current diagnosis for this admission?: Yes Plan: Resume outpatient antiretroviral regiment, outpatient follow-up. - Time Time Spent: 30 to 50 Minutes - Inpatient Certification Medical Necessity: Need Close Monitoring Due to Risk of Patient Decompensation
[2018-10-06 05:53] LABS: ABSOLUTE LYMPHOCYTES (AUTO) 1.9 10^3/uL (0.5-4.7); ABSOLUTE MONOCYTES (AUTO) 0.7 10^3/uL (0.1-1.4); ABSOLUTE NEUT (AUTO) 3.2 10^3/uL (1.7-8.2); BASOPHILS % (AUTO) 0.2 % (0-2); EOSINOPHILS % (AUTO) 0.1 % (0-6); HEMATOCRIT 15.1 % (37.9-51.0); LYMPHOCYTES % (AUTO) 32.2 % (13-45); MEAN CORPUSCULAR HEMOGLOBIN 30.2 pg (27.0-33.4); MEAN CORPUSCULAR HGB CONC 36.5 g/dL (32.0-36.0); MEAN CORPUSCULAR VOLUME 83 fl (80-97); MONOCYTES % (AUTO) 12.8 % (3-13); PLATELET COUNT 303 10^3/uL (150-450); RED BLOOD COUNT 1.83 10^6/uL (4.35-5.55); SEGMENTED NEUTROPHILS % (AUTO) 54.7 % (42-78); TOTAL CELLS COUNTED % (AUTO) 100 %; WHITE BLOOD COUNT 5.8 10^3/uL (4.0-10.5)
[2018-10-06 06:09] LABS: ANION GAP 7 (5-19); BLOOD UREA NITROGEN 15 mg/dL (7-20); CALCIUM 9.2 mg/dL (8.4-10.2); CARBON DIOXIDE 27 mmol/L (22-30); CHLORIDE 102 mmol/L (98-107); GLUCOSE 103 mg/dL (75-110); POTASSIUM 4.4 mmol/L (3.6-5.0); SODIUM 136.2 mmol/L (137-145)
[2018-10-06 06:18] LABS: HEMOGLOBIN 5.5 g/dL (13.5-17.0)
[2018-10-06] MEDS ORDERED: NORMAL SALINE 250 ML IV PRN (08:09)
--- NOTE | 2018-10-06 08:45 | PDOC CONSULTATION ---
Consultation Consult Date: 10/06/18 Consult reason:: Hematology/Oncology consultation was requested for patient with anemia secondary to HIV infection. History of Present Illness Admission Date/PCP: 10/05/18 20:22 History of Present Illness: REIGNA SIFUENTES is a 32 year old male who was diagnosed with HIV within the last year. He has been started on anti-retrovirals. He states that he has seen Dr. Laura Landin with hematology at [facility] and has a Bone Marrow Biopsy appointment with her on October 14. He has received blood transfusions at [facility] in the past for the same. However, he was feeling again as if he needed blood transfusion and presented to the ED with a HGB of 4.1. He states that otherwise, he had been feeling pretty well. Today, after 2 units, he feels better, and has no other concerns today. Past Medical History Pulmonary Medical History: Reports: Pneumonia, Other Psychiatric Medical History: Denies: Depression Hematology: Reports: Anemia Infectious Medical History: Reports: HIV - with Thrush, Other Past Surgical History Past Surgical History: Reports: None Social History Lives with: Family Smoking Status: Never Smoker Frequency of Alcohol Use: Occasional Hx Recreational Drug Use: No Drugs: None Hx Prescription Drug Abuse: No Past Social History Note: He is single with 1 child. - Advance Directive Resuscitation Status: Full Code Family History Family History: COPD, Hypertension Parental Family History Reviewed: Yes - Father unknown. Mother with benign brain tumor Children Family History Reviewed: No Sibling(s) Family History Reviewed.: Yes Medication/Allergy Home Medications: Darunavir/Cobicistat [Prezcobix 800 mg-150 mg Tablet] 1 tab PO DAILY 10/06/18 Emtricitabine/Tenofov Alafenam [Descovy 200-25 mg Tablet] 1 tab PO DAILY 10/06/18 Gabapentin 1 cap PO QHS 10/06/18 Sulfamethoxazole/Trimethoprim [Sulfamethoxazole-Tmp Ss Tablet] 1 each PO TID 10/06/18 Allergies/Adverse Reactions: No Known Allergies Allergy (Verified 08/01/18 16:05) Review of Systems Constitutional: ABSENT: fever(s), headache(s) Eyes: ABSENT: visual disturbances Ears: ABSENT: hearing changes Nose, Mouth, and Throat: ABSENT: sore throat Cardiovascular: ABSENT: chest pain Respiratory: ABSENT: dyspnea Gastrointestinal: ABSENT: nausea, vomiting Genitourinary: ABSENT: difficulty urinating Integumentary: ABSENT: rash Neurological: PRESENT: weakness Hematologic/Lymphatic: ABSENT: easy bleeding Physical Exam Vital Signs: Temp Pulse Resp BP Pulse Ox 99.7 F 108 H 20 120/51 L 99 10/06/18 02:50 10/06/18 02:50 10/06/18 02:50 10/06/18 02:50 10/06/18 02:50 Intake & Output 10/05/18 10/06/18 10/07/18 06:59 06:59 06:59 Intake Total 1337 Output Total 200 Balance 1137 Weight 75.5 kg General appearance: PRESENT: thin, well-developed Head exam: PRESENT: normocephalic Eye exam: PRESENT: EOMI Mouth exam: PRESENT: tongue midline Neck exam: PRESENT: lymphadenopathy. ABSENT: tenderness Respiratory exam: PRESENT: clear to auscultation jovanni, unlabored Cardiovascular exam: PRESENT: RRR GI/Abdominal exam: PRESENT: soft. ABSENT: organolmegaly, tenderness Extremities exam: ABSENT: pedal edema Musculoskeletal exam: PRESENT: normal inspection Neurological exam: PRESENT: alert, awake Psychiatric exam: PRESENT: appropriate affect Additional comments: Shotty lymphadenopathy in the anterior cervical and bilateral axilla. Results Laboratory Results: 10/06/18 05:20 10/06/18 05:20 10/05/18 10/05/18 10/05/18 15:37 15:37 15:37 WBC 5.9 RBC 1.39 L Hgb 4.1 L* Hct 11.5 L* MCV 83 MCH 29.4 MCHC 35.5 RDW 14.3 H Plt Count 395 Seg Neutrophils % Not Reportable Lymphocytes % Not Reportable Monocytes % Not Reportable Eosinophils % Not Reportable Basophils % Not Reportable Absolute Neutrophils Not Reportable Absolute Lymphocytes Not Reportable Absolute Monocytes Not Reportable Absolute Eosinophils Not Reportable Absolute Basophils Not Reportable Retic Count (auto) Absolute Retic Sodium 136.2 L Potassium 4.4 Chloride 100 Carbon Dioxide 25 Anion Gap 11 BUN 15 Creatinine 1.07 Est GFR ( Amer) > 60 Est GFR (Non-Af Amer) > 60 Glucose 107 Calcium 9.8 Iron TIBC % Saturation Ferritin Total Bilirubin 0.3 AST 25 ALT 20 L Alkaline Phosphatase 77 Total Protein 9.7 H Albumin 4.5 Vitamin B12 Folate Urine Color STRAW Urine Appearance CLEAR Urine pH 7.0 Ur Specific [place] 1.012 Urine Protein NEGATIVE Urine Glucose (UA) NEGATIVE Urine Ketones NEGATIVE Urine Blood SMALL H Urine Nitrite NEGATIVE Ur Leukocyte Esterase NEGATIVE Urine WBC (Auto) 1 Urine RBC (Auto) 1 Blood Type Antibody Screen 10/05/18 10/05/18 10/05/18 15:37 15:37 15:37 WBC RBC Hgb Hct MCV MCH MCHC RDW Plt Count Seg Neutrophils % Lymphocytes % Monocytes % Eosinophils % Basophils % Absolute Neutrophils Absolute Lymphocytes Absolute Monocytes Absolute Eosinophils Absolute Basophils Retic Count (auto) 0.47 L Absolute Retic 0.007 L Sodium Potassium Chloride Carbon Dioxide Anion Gap BUN Creatinine Est GFR ( Amer) Est GFR (Non-Af Amer) Glucose Calcium Iron 286.5 H TIBC 290 % Saturation 99 Ferritin 1070.00 H Total Bilirubin AST ALT Alkaline Phosphatase Total Protein Albumin Vitamin B12 429.0 Folate 8.17 Urine Color Urine Appearance Urine pH Ur Specific [place] Urine Protein Urine Glucose (UA) Urine Ketones Urine Blood Urine Nitrite Ur Leukocyte Esterase Urine WBC (Auto) Urine RBC (Auto) Blood Type A POSITIVE Antibody Screen NEGATIVE 10/06/18 10/06/18 05:20 05:20 WBC 5.8 RBC 1.83 L Hgb 5.5 L Hct 15.1 L MCV 83 MCH 30.2 MCHC 36.5 H RDW 14.0 Plt Count 303 Seg Neutrophils % 54.7 Lymphocytes % 32.2 Monocytes % 12.8 Eosinophils % 0.1 Basophils % 0.2 Absolute Neutrophils 3.2 Absolute Lymphocytes 1.9 Absolute Monocytes 0.7 Absolute Eosinophils 0.0 Absolute Basophils 0.0 Retic Count (auto) Absolute Retic Sodium 136.2 L Potassium 4.4 Chloride 102 Carbon Dioxide 27 Anion Gap 7 BUN 15 Creatinine 1.08 Est GFR ( Amer) > 60 Est GFR (Non-Af Amer) > 60 Glucose 103 Calcium 9.2 Iron TIBC % Saturation Ferritin Total Bilirubin AST ALT Alkaline Phosphatase Total Protein Albumin Vitamin B12 Folate Urine Color Urine Appearance Urine pH Ur Specific [place] Urine Protein Urine Glucose (UA) Urine Ketones Urine Blood Urine Nitrite Ur Leukocyte Esterase Urine WBC (Auto) Urine RBC (Auto) Blood Type Antibody Screen Assessment & Plan - Diagnosis (1) HIV (human immunodeficiency virus infection) Is this a current diagnosis for this admission?: Yes Plan: Patient needs to be restarted on his antiretrovirals and antibiotics IVETTE. He is followed by Yoni James with the HIV team at [facility]. (2) Anemia Qualifiers: Other causes of anemia: chronic disease, other Is this a current diagnosis for this admission?: Yes Plan: His B12, Folate, Iron are all normal. His Retic is very, very low. 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 I agree with plans for bone marrow biopsy to confirm this, then starting erythropoetin growth factors. I have offered to perform the bone marrow here. I also left a message for his business continuity analyst at [facility], Laura Landin ([phone]) to confirm this. For now, I will transfuse 2 more units pRBCs and if patient is stable, would discharge home to follow with Dr. Landin. - Plan Summary Plan Summary: Thank you for this consultation, please call if needed.
[2018-10-06 10:03] LABS: PATH REVIEW PATHOLOGIST REVIEWED
--- NOTE | 2018-10-06 14:48 | PDOC PROGRESS REPORT ---
Subjective Progress Note for:: 10/06/18 Subjective:: This is a 32 yr old male with HIV, chronic recurrent anemia who was admitted for severe anemia. He was found to have a Hb of 4.1. He is scheduled for a bone marrow biopsy on October 14 as his anemia is deemed to be from HIv-related BM suppression. No acute event issue. He is finishing his 3rd unit of pRBC and will be getting the last/4th unit soon. He says he cannot stay here for another night as his family is flying to [facility] and he has to leave as soon a she gets his last transfusion. Denies chest pain or SOB. Reason For Visit: SYMPTOMATIC ANEMIA HIV Physical Exam Vital Signs: Temp Pulse Resp BP Pulse Ox 97.6 F 100 18 117/66 100 10/06/18 14:05 10/06/18 14:05 10/06/18 14:05 10/06/18 14:05 10/06/18 14:05 Intake & Output 10/05/18 10/06/18 10/07/18 06:59 06:59 06:59 Intake Total 1337 300 Output Total 200 600 Balance 1137 -300 Weight 166 lb 7.184 oz General appearance: PRESENT: no acute distress, well-developed, well-nourished Head exam: PRESENT: atraumatic, normocephalic Eye exam: PRESENT: conjunctiva pink, EOMI, PERRLA. ABSENT: scleral icterus Ear exam: PRESENT: normal external ear exam Mouth exam: PRESENT: moist, tongue midline Neck exam: ABSENT: carotid bruit, JVD, lymphadenopathy, thyromegaly Respiratory exam: PRESENT: clear to auscultation jovanni. ABSENT: rales, rhonchi, wheezes Cardiovascular exam: PRESENT: RRR. ABSENT: diastolic murmur, rubs, systolic murmur Pulses: PRESENT: normal dorsalis pedis pul GI/Abdominal exam: PRESENT: normal bowel sounds, soft. ABSENT: distended, guarding, mass, organolmegaly, rebound, tenderness Rectal exam: PRESENT: deferred Neurological exam: PRESENT: alert, awake, oriented to person, oriented to place, oriented to time, oriented to situation, CN II-XII grossly intact. ABSENT: motor sensory deficit Results Laboratory Results: 10/06/18 05:20 10/06/18 05:20 03/05/1610/05/18 10/05/18 15:37 15:37 15:37 WBC 5.9 RBC 1.39 L Hgb 4.1 L* Hct 11.5 L* MCV 83 MCH 29.4 MCHC 35.5 RDW 14.3 H Plt Count 395 Seg Neutrophils % Not Reportable Lymphocytes % Not Reportable Monocytes % Not Reportable Eosinophils % Not Reportable Basophils % Not Reportable Absolute Neutrophils Not Reportable Absolute Lymphocytes Not Reportable Absolute Monocytes Not Reportable Absolute Eosinophils Not Reportable Absolute Basophils Not Reportable Retic Count (auto) Absolute Retic Sodium 136.2 L Potassium 4.4 Chloride 100 Carbon Dioxide 25 Anion Gap 11 BUN 15 Creatinine 1.07 Est GFR ( Amer) > 60 Est GFR (Non-Af Amer) > 60 Glucose 107 Calcium 9.8 Iron TIBC % Saturation Ferritin Total Bilirubin 0.3 AST 25 ALT 20 L Alkaline Phosphatase 77 Total Protein 9.7 H Albumin 4.5 Vitamin B12 Folate Urine Color STRAW Urine Appearance CLEAR Urine pH 7.0 Ur Specific [place] 1.012 Urine Protein NEGATIVE Urine Glucose (UA) NEGATIVE Urine Ketones NEGATIVE Urine Blood SMALL H Urine Nitrite NEGATIVE Ur Leukocyte Esterase NEGATIVE Urine WBC (Auto) 1 Urine RBC (Auto) 1 Blood Type Antibody Screen 10/05/18 10/05/18 10/05/18 15:37 15:37 15:37 WBC RBC Hgb Hct MCV MCH MCHC RDW Plt Count Seg Neutrophils % Lymphocytes % Monocytes % Eosinophils % Basophils % Absolute Neutrophils Absolute Lymphocytes Absolute Monocytes Absolute Eosinophils Absolute Basophils Retic Count (auto) 0.47 L Absolute Retic 0.007 L Sodium Potassium Chloride Carbon Dioxide Anion Gap BUN Creatinine Est GFR ( Amer) Est GFR (Non-Af Amer) Glucose Calcium Iron 286.5 H TIBC 290 % Saturation 99 Ferritin 1070.00 H Total Bilirubin AST ALT Alkaline Phosphatase Total Protein Albumin Vitamin B12 429.0 Folate 8.17 Urine Color Urine Appearance Urine pH Ur Specific [place] Urine Protein Urine Glucose (UA) Urine Ketones Urine Blood Urine Nitrite Ur Leukocyte Esterase Urine WBC (Auto) Urine RBC (Auto) Blood Type A POSITIVE Antibody Screen NEGATIVE 10/06/18 10/06/18 05:20 05:20 WBC 5.8 RBC 1.83 L Hgb 5.5 L Hct 15.1 L MCV 83 MCH 30.2 MCHC 36.5 H RDW 14.0 Plt Count 303 Seg Neutrophils % 54.7 Lymphocytes % 32.2 Monocytes % 12.8 Eosinophils % 0.1 Basophils % 0.2 Absolute Neutrophils 3.2 Absolute Lymphocytes 1.9 Absolute Monocytes 0.7 Absolute Eosinophils 0.0 Absolute Basophils 0.0 Retic Count (auto) Absolute Retic Sodium 136.2 L Potassium 4.4 Chloride 102 Carbon Dioxide 27 Anion Gap 7 BUN 15 Creatinine 1.08 Est GFR ( Amer) > 60 Est GFR (Non-Af Amer) > 60 Glucose 103 Calcium 9.2 Iron TIBC % Saturation Ferritin Total Bilirubin AST ALT Alkaline Phosphatase Total Protein Albumin Vitamin B12 Folate Urine Color Urine Appearance Urine pH Ur Specific [place] Urine Protein Urine Glucose (UA) Urine Ketones Urine Blood Urine Nitrite Ur Leukocyte Esterase Urine WBC (Auto) Urine RBC (Auto) Blood Type Antibody Screen Assessment & Plan - Diagnosis (1) Severe anemia Is this a current diagnosis for this admission?: Yes Plan: Possible from HIV-related BM suppression. Initial HYb was 4.1. S/P 3 units pRBC. He will get this 4th unit soon. Repeat CBC after 4 units and if there's no complication, he may be discharged later today. (2) HIV (human immunodeficiency virus infection) Is this a current diagnosis for this admission?: Yes Plan: He took his ART last night. Will resume HIV meds. - Time Time Spent with patient: 15-24 minutes
[2018-10-06] MEDS ORDERED: (PENDING PHARMACY ID) (Emtricitabine/Tenofov Alafenam [Descovy 200-25 Mg Tablet] 1 TAB) PO SCH (15:00)
[2018-10-06] MEDS ORDERED: (PENDING PHARMACY ID) (Darunavir/Cobicistat [Prezcobix 800 Mg-150 Mg Tablet] 1 TAB) PO SCH (15:00)
[2018-10-06 17:57] VITALS: BP 112/72
== END 2018-10-06 17:30 | disposition left against medical advice (07) | DRG 977 ==
LOC: ER 14:48 → EH 20:22 → 5 10-06 01:01
PROVIDERS: ADMIT Internal Medicine; ATTEND Internal Medicine
PROC: 30233N1 Transfusion of Nonautologous Red Blood Cells into Peripheral Vein, Percutaneous Approach (ICD-10-PCS; principal; 2018-10-05)
DX: B20 Human immunodeficiency virus [HIV] disease (principal); D63.8 Anemia in other chronic diseases classified elsewhere; Z79.899 Other long term (current) drug therapy
CPT/HCPCS: 36415; 36430; 80048; 80053; 81001; 82607; 82728; 82746; 83540; 83550; 85025; 85045; 85610; 85730; 86850; 86900; 86901; 86920; 99285; P9016

== ENCOUNTER 2019-01-20 16:33 | Inpatient (IN) | payer MEDICAID ==
[2019-01-20] MEDS ORDERED: NORMAL SALINE 1000 ML 1,000 ML IV ONE (16:44)
--- NOTE | 2019-01-20 16:46 | ER Document Report ---
ED Medical Screen (RME) - General Chief Complaint: Fever Stated Complaint: FEVER Time Seen by Provider: 01/20/19 16:41 Mode of Arrival: Medic Information source: Patient Notes: Patient presents complaining of fever for the past 3 days and generalized weakness for the past week. Patient does have a history of anemia and suspects that his hemoglobin may be low causing some of his symptoms. Patient did have vomiting yesterday although that is resolved at this time. Patient denies any cough or sore throat. Patient does have a history of HIV and has been compliant with his antiviral medications. I have greeted and performed a rapid initial assessment of this patient. A comprehensive ED assessment and evaluation of the patient, analysis of test results and completion of the medical decision making process will be conducted by additional ED providers. TRAVEL OUTSIDE OF THE [place] IN LAST 30 DAYS: No - Related Data Allergies/Adverse Reactions: No Known Allergies Allergy (Verified 01/20/19 16:34) Past Medical History Pulmonary Medical History: Reports: Hx Pneumonia Renal/ Medical History: Denies: Hx Peritoneal Dialysis Psychiatric Medical History: Denies: Hx Depression Infectious Medical History: 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 - Immunizations Immunizations up to date: Yes Hx Diphtheria, Pertussis, Tetanus Vaccination: Yes Physical Exam - Vital signs Vitals: Temp Pulse Resp BP Pulse Ox 99.8 F 114 H 20 111/59 L 99 01/20/19 16:36 01/20/19 16:36 01/20/19 16:36 01/20/19 16:36 01/20/19 16:36 - General General appearance: Alert Notes: Patient pale - Cardiovascular Rhythm: Tachycardia Course - Vital Signs Vital signs: Temp Pulse Resp BP Pulse Ox 99.8 F 114 H 20 111/59 L 99 01/20/19 16:36 01/20/19 16:36 01/20/19 16:36 01/20/19 16:36 01/20/19 16:36
--- NOTE | 2019-01-20 17:18 | RADIOLOGY REPORT (SQ) ---
EXAM DESCRIPTION: CHEST 2 VIEWS COMPLETED DATE/TIME: 01/20/2019 5:01 pm REASON FOR STUDY: fever COMPARISON: 12/08/2017 TECHNIQUE: Frontal and lateral radiographic views of the chest acquired. NUMBER OF VIEWS: Two view. LIMITATIONS: None. FINDINGS: LUNGS AND PLEURA: No pneumothorax. No consolidation or pleural effusion. MEDIASTINUM AND HILAR STRUCTURES: Stable. HEART AND VASCULAR STRUCTURES: Stable. BONES: No acute findings. HARDWARE: None in the chest. OTHER: No other significant finding. IMPRESSION: NO ACUTE FINDINGS. TECHNICAL DOCUMENTATION: JOB ID: [id number] [employer]- All Rights Reserved Reading location - IP/workstation name: [employer]
[2019-01-20 18:36] LABS: APPEARANCE,URINE CLEAR; BILIRUBIN,URINE NEGATIVE (NEGATIVE); COLOR,URINE YELLOW; GLUCOSE, URINE NEGATIVE (NEGATIVE); KETONES,URINE NEGATIVE (NEGATIVE); LEUKOCYTE ESTERASE,URINE SMALL (NEGATIVE); NITRITE,URINE NEGATIVE (NEGATIVE); PROTEIN,URINE NEGATIVE (NEGATIVE); URINE SPECIFIC GRAVITY 1.012
[2019-01-20 18:37] LABS: VENOUS BLOOD BASE EXCESS -4.4 mmol/L; VENOUS BLOOD HCO3 20.3 mmol/L (20-32); VENOUS BLOOD PCO2 34.6 mmHg (35-63); VENOUS BLOOD PH 7.39 (7.30-7.42)
[2019-01-20 18:43] LABS: MEAN CORPUSCULAR HEMOGLOBIN 31.7 pg (27.0-33.4); MEAN CORPUSCULAR HGB CONC 33.9 g/dL (32.0-36.0); MEAN CORPUSCULAR VOLUME 93 fl (80-97); PLATELET COUNT 194 10^3/uL (150-450); RED BLOOD COUNT 0.75 10^6/uL (4.35-5.55); RED CELL DISTRIBUTION WIDTH 18.6 % (11.5-14.0); WHITE BLOOD COUNT 4.5 10^3/uL (4.0-10.5)
[2019-01-20 18:44] LABS: PROTHROMBIN TIME 17.3 SEC (11.4-15.4)
[2019-01-20 18:46] LABS: HEMOGLOBIN 2.4 g/dL (13.5-17.0)
[2019-01-20 18:51] LABS: ABSOLUTE LYMPHOCYTES# (MANUAL) 0.9 10^3/uL (0.5-4.7); ABSOLUTE MONOCYTES # (MANUAL) 0.5 10^3/uL (0.1-1.4); ANISOCYTOSIS 2+; BAND NEUTROPHILS % (MANUAL) 1 % (3-5); BASOPHILS % (MANUAL) 0 % (0-2); EOSINOPHILS % (MANUAL) 0 % (0-6); LYMPHOCYTES % (MANUAL) 21 % (13-45); MONOCYTES % (MANUAL) 12 % (3-13); PLATELET COMMENT ADEQUATE; SEGMENTED NEUTROPHILS % (MAN) 66 % (42-78); TOTAL CELLS COUNTED 100
[2019-01-20 18:52] LABS: PLATELET LARGE PRESENT
[2019-01-20] MEDS ORDERED: NORMAL SALINE 250 ML IV PRN ×2 (18:54)
[2019-01-20 18:56] LABS: ALANINE AMINOTRANSFERASE 19 U/L (21-72); ALBUMIN 4.1 g/dL (3.5-5.0); ALKALINE PHOSPHATASE 87 U/L (38-126); ANION GAP 14 (5-19); ASPARTATE AMINO TRANSFERASE 40 U/L (17-59); BILIRUBIN,DIRECT 0.2 mg/dL (0.0-0.4); BILIRUBIN,TOTAL 0.4 mg/dL (0.2-1.3); BLOOD UREA NITROGEN 16 mg/dL (7-20); CALCIUM 8.4 mg/dL (8.4-10.2); CARBON DIOXIDE 19 mmol/L (22-30); CHLORIDE 105 mmol/L (98-107); GLUCOSE 119 mg/dL (75-110); POTASSIUM 4.4 mmol/L (3.6-5.0); SODIUM 138.1 mmol/L (137-145); TOTAL PROTEIN 9.2 g/dL (6.3-8.2)
[2019-01-20] MEDS ORDERED: PIPERACILLIN/TAZOBACTAM 3.375 GM VIAL IV ONE (19:05)
[2019-01-20] MEDS ORDERED: VANCOMYCIN HCL INJ 1000 MG VIAL IV ONE (19:05)
--- NOTE | 2019-01-20 19:11 | ER Document Report ---
ED Fever - General Chief Complaint: Fever Stated Complaint: FEVER Time Seen by Provider: 01/20/19 16:41 Mode of Arrival: Medic TRAVEL OUTSIDE OF THE [place] IN LAST 30 DAYS: No - HPI Notes: Patient is a 33-year-old male that presents to the emergency department for chief complaint of fever and lightheadedness. Patient reports over the last week he has had generalized fatigue and weakness. He states that he has started to felt febrile over the last few days. He did not take his temperature at home but states EMS took it and told him it was 104. He did receive Tylenol by EMS prior to arrival. Patient reports history of severe anemia about 7 months ago. He states he was recommended to have a bone marrow biopsy but because of insurance reasons it has not been completed. He is currently on Castellano therapy for active HIV but does not know his CD4 count. He states it has been about a month since he saw his physician for the HIV. Patient denies cough, shortness of breath, chest pain, abdominal pain, vomiting, diarrhea, black or bloody stools. He states he has felt nauseated and lightheaded. Past Medical History: HIV, anemia Past Surgical History: Negative Social History: Frequent marijuana. Denies tobacco and alcohol use Family History: Reviewed and noncontributory for presenting illness Allergies: Reviewed, see documented allergy list. REVIEW OF SYSTEMS: CONSTITUTIONAL : fever chills No diaphoresis No recent illness EENT: No vision changes No congestion No sore throat CARDIOVASCULAR: No chest pain No palpitations RESPIRATORY: No shortness of breath No cough No difficulty breathing GASTROINTESTINAL: No abdominal pain No nausea No vomiting No diarrhea GENITOURINARY: No dysuria No hematuria No difficulty urinating MUSCULOSKELETAL: No back pain No leg pain No arm pain SKIN: No rashes No lesions LYMPHATIC: No swollen, enlarged glands. NEUROLOGICAL: lightheadedness No headache weakness No paresthesias PSYCHIATRIC: No anxiety No depression PHYSICAL EXAMINATION: Vital signs reviewed, nursing noted reviewed. GENERAL: Ill-appearing, thin and in mild pale acute distress. HEAD: Atraumatic, normocephalic. EYES: Eyes appear normal, extraocular movements intact, sclera anicteric, conjunctiva are normal. ENT: nares patent, oropharynx clear without exudates. Dry mucous membranes. NECK: Normal range of motion, supple without lymphadenopathy LUNGS: Breath sounds clear to auscultation bilaterally and equal. No wheezes rales or rhonchi. HEART: Tachycardic rate and regular rhythm without murmurs ABDOMEN: Soft, nontender, normoactive bowel sounds. No rebound, guarding, or rigidity. No masses appreciated. EXTREMITIES: Nontender, good range of motion, no pitting or edema. NEUROLOGICAL: No focal neurological deficits. Moves all extremities spontaneously Motor and sensory grossly intact on exam. PSYCH: Normal mood, normal affect. SKIN: Warm, Dry, pale, no rashes on exposed skin - Related Data Allergies/Adverse Reactions: No Known Allergies Allergy (Verified 01/20/19 16:34) Past Medical History - General Information source: Patient - Social History Smoking Status: Current Every Day Smoker Chew tobacco use (# tins/day): No Frequency of alcohol use: None Drug Abuse: None Family History: COPD, Hypertension Patient has suicidal ideation: No Patient has homicidal ideation: No Pulmonary Medical History: Reports: Hx Pneumonia Renal/ Medical History: Denies: Hx Peritoneal Dialysis Psychiatric Medical History: Denies: Hx Depression Infectious Medical History: 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 - Immunizations Immunizations up to date: Yes Hx Diphtheria, Pertussis, Tetanus Vaccination: Yes Physical Exam - Vital signs Vitals: Temp Pulse Resp BP Pulse Ox 99.8 F 114 H 20 111/59 L 99 01/20/19 16:36 01/20/19 16:36 01/20/19 16:36 01/20/19 16:36 01/20/19 16:36 Course - Re-evaluation Re-evalutation: 01/20/19 20:01 Vitals reviewed. Nursing notes reviewed. Patient is awake and mentating appropriately. He is very lightheaded with any position changes. He is tachycardic with a stable blood pressure. Patient had some improvement of his lightheadedness after receiving 1 L of normal saline which was ordered in triage. His hemoglobin today is 2.4. He has had very low hemoglobins in the past. He has no signs of active bleeding. He has been previously recommended bone marrow biopsy and suspected myelosuppression as a cause of his anemia. Trevor clinton will be ordered 6 units packed red blood cells for his severe anemia. He is afebrile in the emergency room but did receive Tylenol prior to arrival. Patient has a lactate of 3.0 and has been given broad-spectrum antibiotics. Urinalysis has a borderline infection and urine culture has been sent. Blood cultures have also been sent. Patient will be admitted to the hospital for further management. His care was discussed with Dr. Julien who accepts admission. Laboratory 01/20/19 01/20/19 01/20/19 16:50 17:00 17:00 WBC Cancelled RBC Cancelled Hgb Cancelled Hct Cancelled MCV Cancelled MCH Cancelled MCHC Cancelled RDW Cancelled Plt Count Cancelled Total Counted Seg Neutrophils % Cancelled Seg Neuts % (Manual) Band Neutrophils % Lymphocytes % Cancelled Lymphocytes % (Manual) Monocytes % Cancelled Monocytes % (Manual) Eosinophils % Cancelled Eosinophils % (Manual) Basophils % Cancelled Basophils % (Manual) Absolute Neutrophils Cancelled Abs Neuts (Manual) Absolute Lymphocytes Cancelled Abs Lymphs (Manual) Absolute Monocytes Cancelled Abs Monocytes (Manual) Absolute Eosinophils Cancelled Absolute Eos (Manual) Absolute Basophils Cancelled Abs Basophils (Manual) Platelet Estimate Cancelled Large Platelets Platelet Comment Anisocytosis Microcytosis PT Cancelled INR Cancelled VBG pH VBG pCO2 VBG HCO3 VBG Base Excess Sodium Potassium Chloride Carbon Dioxide Anion Gap BUN Creatinine Est GFR ( Amer) Est GFR (Non-Af Amer) Glucose Lactic Acid Calcium Total Bilirubin Direct Bilirubin Neonat Total Bilirubin Neonat Direct Bilirubin Neonat Indirect Bili AST ALT Alkaline Phosphatase Total Protein Albumin Urine Color YELLOW Urine Appearance CLEAR Urine pH 6.0 Ur Specific [place] 1.012 Urine Protein NEGATIVE Urine Glucose (UA) NEGATIVE Urine Ketones NEGATIVE Urine Blood SMALL H Urine Nitrite NEGATIVE Urine Bilirubin NEGATIVE Urine Urobilinogen 4.0 H Ur Leukocyte Esterase SMALL H Urine WBC (Auto) 15 Urine RBC (Auto) 1 U Hyaline Cast (Auto) 3 Urine Bacteria (Auto) TRACE Squamous Epi Cells Auto <1 Urine Ascorbic Acid NEGATIVE Slides for Path Review Cancelled Blood Type Antibody Screen Crossmatch 01/20/19 01/20/19 01/20/19 17:00 17:00 17:00 WBC RBC Hgb Hct MCV MCH MCHC RDW Plt Count Total Counted Seg Neutrophils % Seg Neuts % (Manual) Band Neutrophils % Lymphocytes % Lymphocytes % (Manual) Monocytes % Monocytes % (Manual) Eosinophils % Eosinophils % (Manual) Basophils % Basophils % (Manual) Absolute Neutrophils Abs Neuts (Manual) Absolute Lymphocytes Abs Lymphs (Manual) Absolute Monocytes Abs Monocytes (Manual) Absolute Eosinophils Absolute Eos (Manual) Absolute Basophils Abs Basophils (Manual) Platelet Estimate Large Platelets Platelet Comment Anisocytosis Microcytosis PT INR VBG pH Cancelled VBG pCO2 Cancelled VBG HCO3 Cancelled VBG Base Excess Cancelled Sodium Cancelled Potassium Cancelled Chloride Cancelled Carbon Dioxide Cancelled Anion Gap Cancelled BUN Cancelled Creatinine Cancelled Est GFR ( Amer) Cancelled Est GFR (Non-Af Amer) Cancelled Glucose Cancelled Lactic Acid Cancelled Calcium Cancelled Total Bilirubin Cancelled Direct Bilirubin Cancelled Neonat Total Bilirubin Cancelled Neonat Direct Bilirubin Cancelled Neonat Indirect Bili Cancelled AST Cancelled ALT Cancelled Alkaline Phosphatase Cancelled Total Protein Cancelled Albumin Cancelled Urine Color Urine Appearance Urine pH Ur Specific [place] Urine Protein Urine Glucose (UA) Urine Ketones Urine Blood Urine Nitrite Urine Bilirubin Urine Urobilinogen Ur Leukocyte Esterase Urine WBC (Auto) Urine RBC (Auto) U Hyaline Cast (Auto) Urine Bacteria (Auto) Squamous Epi Cells Auto Urine Ascorbic Acid Slides for Path Review Blood Type Antibody Screen Crossmatch 01/20/19 01/20/19 01/20/19 18:14 18:14 18:14 WBC RBC Hgb Hct MCV MCH MCHC RDW Plt Count Total Counted Seg Neutrophils % Seg Neuts % (Manual) Band Neutrophils % Lymphocytes % Lymphocytes % (Manual) Monocytes % Monocytes % (Manual) Eosinophils % Eosinophils % (Manual) Basophils % Basophils % (Manual) Absolute Neutrophils Abs Neuts (Manual) Absolute Lymphocytes Abs Lymphs (Manual) Absolute Monocytes Abs Monocytes (Manual) Absolute Eosinophils Absolute Eos (Manual) Absolute Basophils Abs Basophils (Manual) Platelet Estimate Large Platelets Platelet Comment Anisocytosis Microcytosis PT INR VBG pH 7.39 VBG pCO2 34.6 L VBG HCO3 20.3 VBG Base Excess -4.4 Sodium 138.1 Potassium 4.4 Chloride 105 Carbon Dioxide 19 L Anion Gap 14 BUN 16 Creatinine 1.19 Est GFR ( Amer) > 60 Est GFR (Non-Af Amer) > 60 Glucose 119 H Lactic Acid 3.0 H Calcium 8.4 Total Bilirubin 0.4 Direct Bilirubin 0.2 Neonat Total Bilirubin Not Reportable Neonat Direct Bilirubin Not Reportable Neonat Indirect Bili Not Reportable AST 40 ALT 19 L Alkaline Phosphatase 87 Total Protein 9.2 H Albumin 4.1 Urine Color Urine Appearance Urine pH Ur Specific [place] Urine Protein Urine Glucose (UA) Urine Ketones Urine Blood Urine Nitrite Urine Bilirubin Urine Urobilinogen Ur Leukocyte Esterase Urine WBC (Auto) Urine RBC (Auto) U Hyaline Cast (Auto) Urine Bacteria (Auto) Squamous Epi Cells Auto Urine Ascorbic Acid Slides for Path Review Blood Type Antibody Screen Crossmatch 01/20/19 01/20/19 01/20/19 18:14 18:14 18:14 WBC 4.5 RBC 0.75 L Hgb 2.4 L* Hct 7.0 L* MCV 93 MCH 31.7 MCHC 33.9 RDW 18.6 H Plt Count 194 Total Counted 100 Seg Neutrophils % Not Reportable Seg Neuts % (Manual) 66 Band Neutrophils % 1 L Lymphocytes % Not Reportable Lymphocytes % (Manual) 21 Monocytes % Not Reportable Monocytes % (Manual) 12 Eosinophils % Not Reportable Eosinophils % (Manual) 0 Basophils % Not Reportable Basophils % (Manual) 0 Absolute Neutrophils Not Reportable Abs Neuts (Manual) 3.0 Absolute Lymphocytes Not Reportable Abs Lymphs (Manual) 0.9 Absolute Monocytes Not Reportable Abs Monocytes (Manual) 0.5 Absolute Eosinophils Not Reportable Absolute Eos (Manual) 0.0 Absolute Basophils Not Reportable Abs Basophils (Manual) 0.0 Platelet Estimate Large Platelets PRESENT Platelet Comment ADEQUATE Anisocytosis 2+ Microcytosis 2+ PT 17.3 H INR 1.40 VBG pH VBG pCO2 VBG HCO3 VBG Base Excess Sodium Potassium Chloride Carbon Dioxide Anion Gap BUN Creatinine Est GFR ( Amer) Est GFR (Non-Af Amer) Glucose Lactic Acid Calcium Total Bilirubin Direct Bilirubin Neonat Total Bilirubin Neonat Direct Bilirubin Neonat Indirect Bili AST ALT Alkaline Phosphatase Total Protein Albumin Urine Color Urine Appearance Urine pH Ur Specific [place] Urine Protein Urine Glucose (UA) Urine Ketones Urine Blood Urine Nitrite Urine Bilirubin Urine Urobilinogen Ur Leukocyte Esterase Urine WBC (Auto) Urine RBC (Auto) U Hyaline Cast (Auto) Urine Bacteria (Auto) Squamous Epi Cells Auto Urine Ascorbic Acid Slides for Path Review Blood Type A POSITIVE Antibody Screen NEGATIVE Crossmatch See Detail Chest X-Ray 01/20/19 16:45 IMPRESSION: NO ACUTE FINDINGS. - Vital Signs Vital signs: Temp Pulse Resp BP Pulse Ox 99.8 F 114 H 17 127/75 H 99 01/20/19 16:36 01/20/19 16:36 01/20/19 19:01 01/20/19 19:01 01/20/19 16:36 - Laboratory Result Diagrams: 01/20/19 18:14 01/20/19 18:14 Laboratory results interpreted by me: 01/20/19 01/20/19 01/20/19 16:50 18:14 18:14 RBC Hgb Hct RDW Band Neutrophils % PT VBG pCO2 34.6 L Carbon Dioxide 19 L Glucose 119 H Lactic Acid ALT 19 L Total Protein 9.2 H Urine Blood SMALL H Urine Urobilinogen 4.0 H Ur Leukocyte Esterase SMALL H Crossmatch 01/20/19 01/20/19 01/20/19 18:14 18:14 18:14 RBC 0.75 L Hgb 2.4 L* Hct 7.0 L* RDW 18.6 H Band Neutrophils % 1 L PT 17.3 H VBG pCO2 Carbon Dioxide Glucose Lactic Acid 3.0 H ALT Total Protein Urine Blood Urine Urobilinogen Ur Leukocyte Esterase Crossmatch 01/20/19 18:14 RBC Hgb Hct RDW Band Neutrophils % PT VBG pCO2 Carbon Dioxide Glucose Lactic Acid ALT Total Protein Urine Blood Urine Urobilinogen Ur Leukocyte Esterase Crossmatch See Detail - EKG Interpretation by Me Additional EKG results interpreted by me: 01/20/19 19:10 Interpreted by myself 1907: Sinus tachycardia, rate 113, normal axis, no ectopy, no STEMI Critical Care Note - Critical Care Note Total time excluding time spent on procedures (mins): 39 Comments: Critical care time 39 exclusive from separate billable procedures for a patient requiring complex medical decision making, and high potential for clinical deterioration. Time spent obtaining history from patient or surrogate, discussions with consultants, development of treatment plan with patient or surrogate, evaluation of patient's response to treatment, examination of patient, ordering and performing treatments and interventions, ordering and review of laboratory studies, re-evaluation of patient's condition, ordering and review of radiographic studies and review of old charts Discharge - Discharge Clinical Impression: Near syncope Anemia Qualifiers: Anemia type: other cause Other causes of anemia: other cause, not classified Qualified Code(s): D64.89 - Other specified anemias Fever Qualifiers: Fever type: due to other condition Qualified Code(s): R50.81 - Fever presenting with conditions classified elsewhere Condition: Stable Disposition: ADMITTED INPATIENT Admitting Provider: Wily (Hospitalist) Unit Admitted: ICU
[2019-01-20] MEDS ORDERED: LEVOFLOXACIN 750 MG/D5W RTU 750 MG/150 ML RTUPB IV ONE (19:13)
[2019-01-20] MEDS ORDERED: MAG HYDROX/AL HYDROX/SIMETH SUSP 30 ML UDCUP PO PRN (20:02)
[2019-01-20] MEDS ORDERED: ZOLPIDEM TARTRATE 5 MG TABLET PO PRN (20:02)
[2019-01-20] MEDS ORDERED: ONDANSETRON HCL INJ/PF 4 MG/2 ML SDV IV PRN (20:02)
[2019-01-20] MEDS ORDERED: NORMAL SALINE 1000 ML 1,000 ML IV PRN (20:02)
[2019-01-20] MEDS ORDERED: MAGNESIUM HYDROXIDE SUSP 30 ML UDCUP PO PRN (20:02)
[2019-01-20] MEDS ORDERED: ACETAMINOPHEN 325 MG TABLET PO PRN (20:13)
[2019-01-20] MEDS ORDERED: NALBUPHINE HCL INJ 10 MG/1 ML AMPULE IV PRN (20:13)
[2019-01-20] MEDS ORDERED: ACETAMINOPHEN 650 MG SUPP.RECT PR PRN (20:13)
[2019-01-20] MEDS ORDERED: IBUPROFEN 800 MG TABLET PO PRN (20:13)
--- NOTE | 2019-01-20 20:33 | EKG REPORT ---
SEVERITY:- BORDERLINE ECG - SINUS TACHYCARDIA BORDERLINE PROLONGED QT INTERVAL LVH : Confirmed by: Grady Archer 20-Jan-2019 20:31:54
[2019-01-20 23:35] LABS: URINE AMPHETAMINES SCREEN NEGATIVE; URINE BARBITURATES SCREEN NEGATIVE; URINE BENZODIAZEPINES SCREEN NEGATIVE; URINE COCAINE SCREEN NEGATIVE; URINE METHADONE SCREEN NEGATIVE; URINE PHENCYCLIDINE SCREEN NEGATIVE
[2019-01-20 23:40] LABS: URINE MARIJUANA (THC) SCREEN UNCONFIRMED POSITIVE
--- NOTE | 2019-01-21 00:13 | PDOC H&P ---
History of Present Illness Admission Date/PCP: 01/20/19 20:11 No Local PCP Patient complains of: Weakness History of Present Illness: REGINA SIFUENTES is a 33 year old male who presented to the emergency room with a 7- day history of generalized weakness. He admits gradually worsening generalized weakness that began approximately 1 week ago accompanied by anorexia for 1 week, nausea with a subjective fever and chills over the last 3 days and one episode of vomiting on the day prior to admission. Today his generalized weakness had become so severe that he called EMS to bring him to the hospital. He admits prior similar generalized weakness with severe anemia in the past. He denies any aggravating or ameliorating factors for his generalized weakness. He had not taken any medications for his generalized weakness at home. Upon the arrival of EMS he was found to have a fever of 104 F and he was given oral Tylenol. Upon his arrival in the emergency room his fever was down to 99 F and he was noted to be moderately tachycardic. In the ER his hemoglobin was found to be 2.4 with a hematocrit of 7.0. His serum lactate was 3.0 and a urinalysis showed a slightly positive leukocyte esterase. A urine culture is pending, as are blood cultures x2. The patient was subsequently admitted to the ICU for further evaluation and treatment. Past Medical History Cardiac Medical History: Denies: Coronary Artery Disease, DVT, Hyperlipidema, Hypertension, Pulmonary Embolism Pulmonary Medical History: Reports: Pneumonia Denies: Asthma, Chronic Obstructive Pulmonary Disease (COPD) EENT Medical History: Reports: Throat - Thrush associated with HIV Denies: Cataracts, Ears - Hearing aids Neurological Medical History: Reports: Other - Chronic right cervical neuropathy Denies: Hemorrhagic CVA, Ischemic CVA, Multiple Sclerosis, Seizures Endocrine Medical History: Denies: Diabetes Mellitus Type 1, Diabetes Mellitus Type 2, Hyperthyroidism, Hypothyroidism Renal/ Medical History: Denies: Chronic Kidney Disease, Nephrolithiasis Malignancy Medical History: Reports: None GI Medical History: Denies: Cirrhosis, Crohn's Disease, Hepatitis, Ulcerative Colitis Musculoskeltal Medical History: Denies: Arthritis, Gout Skin Medical History: Denies: Eczema, Psoriasis Psychiatric Medical History: Reports: Substance Abuse Denies: Alcohol Dependency, Depression, Tobacco Dependency Traumatic Medical History: Reports: None Hematology: Reports: Anemia Denies: Bleeding Tendencies, Neutropenia Infectious Medical History: Reports: HIV - with Thrush Past Surgical History Past Surgical History: Reports: None Social History Information Source: Patient Lives with: Parents Smoking Status: Former Smoker Frequency of Alcohol Use: None Hx Recreational Drug Use: Yes Drugs: Marijuana Hx Prescription Drug Abuse: No Past Social History Note: Patient had been on a water to drink a day drinker in years past but discontinued drinking after the diagnosis of HIV. - Advance Directive Resuscitation Status: Full Code Surrogate healthcare decision maker:: Trista Sifuentes Family History Family History: COPD, Hypertension, Malignancy Parental Family History Reviewed: Yes Children Family History Reviewed: No Sibling(s) Family History Reviewed.: Yes Medication/Allergy Home Medications: Darunavir/Cobicistat [Prezcobix 800 mg-150 mg Tablet] 1 each PO DAILY 01/20/19 Emtricitabine/Tenofov Alafenam [Descovy 200-25 mg Tablet] 1 each PO DAILY Gabapentin [Neurontin] 600 mg PO QHS 01/20/19 Allergies/Adverse Reactions: No Known Allergies Allergy (Verified 01/20/19 16:34) Review of Systems Constitutional: PRESENT: as per HPI, anorexia, chills, fatigue, fever(s), weakness - Generalized weakness, other - Lightheadedness upon standing Eyes: ABSENT: visual disturbances, other - Ocular pain Ears: ABSENT: hearing changes, other - Ear pain Nose, Mouth, and Throat: ABSENT: mouth pain, sore throat Cardiovascular: PRESENT: as per HPI, other - Lightheadedness upon standing. ABSENT: chest pain, orthropnea, palpitations Respiratory: ABSENT: cough, dyspnea Gastrointestinal: PRESENT: as per HPI, nausea, vomiting, other - Anorexia. ABSENT: abdominal pain, constipation, diarrhea Genitourinary: ABSENT: dysuria, hematuria Musculoskeletal: PRESENT: as per HPI, muscle weakness - Generalized weakness. ABSENT: back pain, joint swelling Integumentary: ABSENT: pruritus, rash Neurological: PRESENT: as per HPI, other - Generalized muscle weakness and lightheadedness upon standing. ABSENT: confusion, convulsions, focal weakness, memory loss Psychiatric: ABSENT: anxiety, depression Endocrine: ABSENT: cold intolerance, heat intolerance Hematologic/Lymphatic: ABSENT: easy bleeding, easy bruising Physical Exam Vital Signs: Temp Pulse Resp BP Pulse Ox 99.8 F 114 H 18 111/49 L 98 01/20/19 16:36 01/20/19 16:36 01/20/19 20:01 01/20/19 20:00 01/20/19 20:01 Intake & Output 01/18/19 01/19/19 01/20/19 23:59 23:59 23:59 Intake Total 1000 Balance 1000 Weight 77.1 kg General appearance: PRESENT: no acute distress, cooperative, thin Head exam: PRESENT: atraumatic, normocephalic Eye exam: PRESENT: conjunctiva pale. ABSENT: conjunctival injection, scleral icterus Ear exam: PRESENT: normal external ear exam. ABSENT: bleeding, drainage Mouth exam: PRESENT: dry mucosa, neck supple Neck exam: ABSENT: thyromegaly, tracheal deviation Respiratory exam: PRESENT: clear to auscultation jovanni, symmetrical, unlabored Cardiovascular exam: PRESENT: RRR, tachycardia. ABSENT: clicks, gallop, rubs Pulses: PRESENT: normal radial pulses, normal dorsalis pedis pul Vascular exam: ABSENT: normal capillary refill - Capillary refill delayed to greater than 3 seconds, pallor GI/Abdominal exam: PRESENT: normal bowel sounds, soft Rectal exam: PRESENT: deferred Extremities exam: ABSENT: joint swelling, pedal edema Musculoskeletal exam: PRESENT: full ROM, normal inspection Neurological exam: PRESENT: alert, oriented to person, oriented to place, oriented to time, oriented to situation, CN II-XII grossly intact. ABSENT: motor sensory deficit Psychiatric exam: PRESENT: appropriate affect, normal mood Skin exam: PRESENT: dry, pallor - Generalized, warm. ABSENT: jaundice, rash, urticaria Results Laboratory Results: 01/20/19 18:14 01/20/19 18:14 01/20/19 01/20/19 01/20/19 16:50 17:00 17:00 WBC Cancelled RBC Cancelled Hgb Cancelled Hct Cancelled MCV Cancelled MCH Cancelled MCHC Cancelled RDW Cancelled Plt Count Cancelled Seg Neutrophils % Cancelled Lymphocytes % Cancelled Monocytes % Cancelled Eosinophils % Cancelled Basophils % Cancelled Absolute Neutrophils Cancelled Absolute Lymphocytes Cancelled Absolute Monocytes Cancelled Absolute Eosinophils Cancelled Absolute Basophils Cancelled VBG pH VBG pCO2 VBG HCO3 VBG Base Excess Sodium Cancelled Potassium Cancelled Chloride Cancelled Carbon Dioxide Cancelled Anion Gap Cancelled BUN Cancelled Creatinine Cancelled Est GFR ( Amer) Cancelled Est GFR (Non-Af Amer) Cancelled Glucose Cancelled Lactic Acid Calcium Cancelled Total Bilirubin Cancelled AST Cancelled ALT Cancelled Alkaline Phosphatase Cancelled Total Protein Cancelled Albumin Cancelled Urine Color YELLOW Urine Appearance CLEAR Urine pH 6.0 Ur Specific [place] 1.012 Urine Protein NEGATIVE Urine Glucose (UA) NEGATIVE Urine Ketones NEGATIVE Urine Blood SMALL H Urine Nitrite NEGATIVE Ur Leukocyte Esterase SMALL H Urine WBC (Auto) 15 Urine RBC (Auto) 1 Blood Type Antibody Screen 01/20/19 01/20/19 01/20/19 17:00 17:00 18:14 WBC RBC Hgb Hct MCV MCH MCHC RDW Plt Count Seg Neutrophils % Lymphocytes % Monocytes % Eosinophils % Basophils % Absolute Neutrophils Absolute Lymphocytes Absolute Monocytes Absolute Eosinophils Absolute Basophils VBG pH Cancelled 7.39 VBG pCO2 Cancelled 34.6 L VBG HCO3 Cancelled 20.3 VBG Base Excess Cancelled -4.4 Sodium Potassium Chloride Carbon Dioxide Anion Gap BUN Creatinine Est GFR ( Amer) Est GFR (Non-Af Amer) Glucose Lactic Acid Cancelled Calcium Total Bilirubin AST ALT Alkaline Phosphatase Total Protein Albumin Urine Color Urine Appearance Urine pH Ur Specific [place] Urine Protein Urine Glucose (UA) Urine Ketones Urine Blood Urine Nitrite Ur Leukocyte Esterase Urine WBC (Auto) Urine RBC (Auto) Blood Type Antibody Screen 01/20/19 01/20/19 01/20/19 18:14 18:14 18:14 WBC 4.5 RBC 0.75 L Hgb 2.4 L* Hct 7.0 L* MCV 93 MCH 31.7 MCHC 33.9 RDW 18.6 H Plt Count 194 Seg Neutrophils % Not Reportable Lymphocytes % Not Reportable Monocytes % Not Reportable Eosinophils % Not Reportable Basophils % Not Reportable Absolute Neutrophils Not Reportable Absolute Lymphocytes Not Reportable Absolute Monocytes Not Reportable Absolute Eosinophils Not Reportable Absolute Basophils Not Reportable VBG pH VBG pCO2 VBG HCO3 VBG Base Excess Sodium 138.1 Potassium 4.4 Chloride 105 Carbon Dioxide 19 L Anion Gap 14 BUN 16 Creatinine 1.19 Est GFR ( Amer) > 60 Est GFR (Non-Af Amer) > 60 Glucose 119 H Lactic Acid 3.0 H Calcium 8.4 Total Bilirubin 0.4 AST 40 ALT 19 L Alkaline Phosphatase 87 Total Protein 9.2 H Albumin 4.1 Urine Color Urine Appearance Urine pH Ur Specific [place] Urine Protein Urine Glucose (UA) Urine Ketones Urine Blood Urine Nitrite Ur Leukocyte Esterase Urine WBC (Auto) Urine RBC (Auto) Blood Type Antibody Screen 01/20/19 18:14 WBC RBC Hgb Hct MCV MCH MCHC RDW Plt Count Seg Neutrophils % Lymphocytes % Monocytes % Eosinophils % Basophils % Absolute Neutrophils Absolute Lymphocytes Absolute Monocytes Absolute Eosinophils Absolute Basophils VBG pH VBG pCO2 VBG HCO3 VBG Base Excess Sodium Potassium Chloride Carbon Dioxide Anion Gap BUN Creatinine Est GFR ( Amer) Est GFR (Non-Af Amer) Glucose Lactic Acid Calcium Total Bilirubin AST ALT Alkaline Phosphatase Total Protein Albumin Urine Color Urine Appearance Urine pH Ur Specific [place] Urine Protein Urine Glucose (UA) Urine Ketones Urine Blood Urine Nitrite Ur Leukocyte Esterase Urine WBC (Auto) Urine RBC (Auto) Blood Type A POSITIVE Antibody Screen NEGATIVE Impressions: Chest X-Ray 01/20/19 16:45 IMPRESSION: NO ACUTE FINDINGS. Assessment and Plan - Diagnosis (1) Severe anemia Is this a current diagnosis for this admission?: Yes Plan: Patient will be admitted to the ICU where he will be closely monitored as he receives 6 units of packed red blood cells in transfusion. His status will be monitored closely and any problems related to transfusion will be treated immediately. A hematology consultation will be obtained with Dr. Cabrera. A CBC and an extended metabolic profile will be obtained on a daily basis as part of monitoring his anemia. (2) SIRS (systemic inflammatory response syndrome) Is this a current diagnosis for this admission?: Yes Plan: Patient had a significant fever 104 F at home, and also claimed orthostatic hypotension. No obvious source of infection is apparent although there are some changes in the urinalysis with culture pending. Blood cultures are also pending. Patient be monitored closely with serial lactic acids (first lactic ac id 3.0). He will be treated with a broad-spectrum antibiotic using ertapenem 1 g IV every 24 hours. (3) Fever Qualifiers: Fever type: unspecified Qualified Code(s): R50.9 - Fever, unspecified Is this a current diagnosis for this admission?: Yes Plan: Patient's fever will be addressed with routine symptomatic and supportive care. Additionally he will receive Tylenol and/or ibuprofen as required for control of any fever. Should he have pain associated with his fever he will receive Nubain 10 mg IV every 3 hours on a as needed basis for pain. (4) Near syncope Is this a current diagnosis for this admission?: Yes Plan: Patient's near syncope will be treated with blood transfusions and IV fluids. Orthostatic vital signs will be monitored as appropriate. (5) HIV (human immunodeficiency virus infection) Qualifiers: HIV symptom status: unspecified Qualified Code(s): B20 - Human immunodeficiency virus [HIV] disease Is this a current diagnosis for this admission?: Yes Plan: The patient's infectious disease physician may be consulted if necessary. Patient will be resumed on his usual HAART therapy as soon as possible. - Time Time Spent with patient: 25-34 minutes Medications reviewed and adjusted accordingly: Yes Anticipated discharge: Home - Inpatient Certification Based on my medical assessment, after consideration of the patient's comorbidi ties, presenting symptoms, or acuity I expect that the services needed warrant INPATIENT care.: Yes I certify that my determination is in accordance with my understanding of Araceli hassan's requirements for reasonable and necessary INPATIENT services [42 CFR 412.3e].: Yes Medical Necessity: Significant Comorbidiites Make Outpatient Treatment Too Risky, Need Close Monitoring Due to Risk of Patient Decompensation, Need For IV Fluids, Need For Continuous Telemetry Monitoring, Need for IV Antibiotics, Risk of Complication if Not Cared For in Hospital, Risk of Diagnosis Which Will Require Inpatient Eval/Care/Monitoring
[2019-01-21] MEDS: ERTAPENEM SODIUM INJ 1 GM VIAL IV SCH ×2 (01:29→01:39)
[2019-01-21] MEDS: HEPARIN SOD (PORCINE) 5,000 UNIT/ML 1 ML SYRINGE SUBCUT SCH ×4 (01:33→23:47)
[2019-01-21] MEDS: FAMOTIDINE 20 MG TABLET PO SCH ×3 (01:34→23:47)
--- NOTE | 2019-01-21 02:52 | ADVANCED CARE ---
- Diagnosis (1) Severe anemia Diagnosis Current: Yes (2) SIRS (systemic inflammatory response syndrome) Diagnosis Current: Yes (3) Fever Diagnosis Current: Yes (4) Near syncope Diagnosis Current: Yes (5) HIV (human immunodeficiency virus infection) Diagnosis Current: Yes Attendance: Patient and myself Resuscitation Status: Full Code Discussion: Patient is determine if he wishes to remain on full code resuscitation status throughout his hospital course in the event of a respiratory or cardiac arrest. Additionally he has determined that he would like to name Trista Gutierrez his mother as his designated surrogate medical decision-maker. He is not interested in discussing a living will at this point in time. Care Planning Goals: 1. Patient will remain a full code resuscitation status throughout the remainder of his hospital stay. 2. Trista Gutierrez will be named as the patient's designated surrogate medical decision maker. Document(s) Completed: The following will be entered into the permanent medical record and medical orders via EMR order in data analytics specialist: 1. Patient will remain a full code resuscitation status throughout the remainder of his hospital stay. 2. Trista Gutierrez will be named as the patient's designated surrogate medical decision maker. Time Spent: 8 minutes
--- NOTE | 2019-01-21 08:33 | PDOC CONSULTATION ---
Consultation Consult Date: 01/21/19 Attending physician:: ALINE HERNANDEZ Provider Consulted: ROLANDO GALLOWAY Consult reason:: Recurrent anemia in the setting of HIV, antiretroviral therapy History of Present Illness Admission Date/PCP: 01/20/19 20:11 Patient complains of: Weakness, fatigue History of Present Illness: REGINA ISFUENTES is a 33 year old male with long-standing history of HIV, on antiretroviral therapy, has presented now about 4 times in the last year with severe recurrent anemia requiring transfusion. On each occasion patient has had iron studies indicating elevated ferritin and iron saturation consistent with anemia of chronic disease. B12 levels have been normal. Of note, my partner Dr. Park saw patient last visit in September and noted that he was being followed both by infectious disease in [place] as well as hematology in [place], hematology was planning on doing a bone marrow biopsy. The patient tells me that insurance denied the bone marrow biopsy for some reason. So has not had this done yet. Hemoglobin was in the 7 range and patient got transfusions. He was hypotensive, tachycardic and seemed fitting criteria for cardiogenic shock. Therefore he was admitted to the ICU and monitored closely. Given transfusions. Past Medical History Cardiac Medical History: Denies: Coronary Artery Disease, DVT, Hyperlipidema, Hypertension, Pulmonary Embolism Pulmonary Medical History: Reports: Pneumonia Denies: Asthma, Chronic Obstructive Pulmonary Disease (COPD) EENT Medical History: Reports: Throat - Thrush associated with HIV Denies: Cataracts, Ears - Hearing aids Neurological Medical History: Reports: Other - Chronic right cervical neuropathy Denies: Hemorrhagic CVA, Ischemic CVA, Multiple Sclerosis, Seizures Endocrine Medical History: Denies: Diabetes Mellitus Type 1, Diabetes Mellitus Type 2, Hyperthyroidism, Hypothyroidism Renal/ Medical History: Denies: Chronic Kidney Disease, Nephrolithiasis Malignancy Medical History: Reports: None GI Medical History: Denies: Cirrhosis, Crohn's Disease, Hepatitis, Ulcerative Colitis Musculoskeltal Medical History: Denies: Arthritis, Gout Skin Medical History: Denies: Eczema, Psoriasis Psychiatric Medical History: Reports: Substance Abuse Denies: Alcohol Dependency, Depression, Tobacco Dependency Traumatic Medical History: Reports: None Hematology: Reports: Anemia Denies: Bleeding Tendencies, Neutropenia Infectious Medical History: Reports: HIV - with Thrush Past Surgical History Past Surgical History: Reports: None Social History Information Source: Patient Lives with: Parents Smoking Status: Former Smoker Frequency of Alcohol Use: None Hx Recreational Drug Use: Yes Drugs: Marijuana Hx Prescription Drug Abuse: No - Advance Directive Resuscitation Status: Full Code Family History Family History: COPD, Hypertension, Malignancy Parental Family History Reviewed: Yes Children Family History Reviewed: Yes Sibling(s) Family History Reviewed.: Yes Medication/Allergy Home Medications: Darunavir/Cobicistat [Prezcobix 800 mg-150 mg Tablet] 1 each PO DAILY 01/20/19 Emtricitabine/Tenofov Alafenam [Descovy 200-25 mg Tablet] 1 each PO DAILY 01/20/19 Gabapentin [Neurontin] 600 mg PO QHS 01/20/19 Allergies/Adverse Reactions: No Known Allergies Allergy (Verified 01/20/19 16:34) Review of Systems Constitutional: ABSENT: chills, fever(s), headache(s), weight gain, weight loss Eyes: ABSENT: visual disturbances Ears: ABSENT: hearing changes Cardiovascular: ABSENT: chest pain, dyspnea on exertion, edema, orthropnea, palpitations Respiratory: ABSENT: cough, hemoptysis Gastrointestinal: ABSENT: abdominal pain, constipation, diarrhea, hematemesis, hematochezia, nausea, vomiting Genitourinary: ABSENT: dysuria, hematuria Musculoskeletal: ABSENT: joint swelling Integumentary: ABSENT: rash, wounds Neurological: ABSENT: abnormal gait, abnormal speech, confusion, dizziness, focal weakness, syncope Psychiatric: ABSENT: anxiety, depression, homidical ideation, suicidal ideation Endocrine: ABSENT: cold intolerance, heat intolerance, polydipsia, polyuria Hematologic/Lymphatic: ABSENT: easy bleeding, easy bruising Physical Exam Vital Signs: Temp Pulse Resp BP Pulse Ox 98.9 F 65 15 125/75 100 01/21/19 01:24 01/21/19 07:25 01/21/19 07:25 01/21/19 07:25 01/21/19 07:25 Intake & Output 01/20/19 01/21/19 01/22/19 06:59 06:59 06:59 Intake Total 2990 350 Output Total 400 Balance 2590 350 Weight 70.8 kg General appearance: PRESENT: no acute distress, well-developed, well-nourished Head exam: PRESENT: atraumatic, normocephalic Eye exam: PRESENT: conjunctiva pink, EOMI, PERRLA. ABSENT: scleral icterus Ear exam: PRESENT: normal external ear exam Mouth exam: PRESENT: moist, tongue midline Neck exam: ABSENT: carotid bruit, JVD, lymphadenopathy, thyromegaly Respiratory exam: PRESENT: clear to auscultation jovanni. ABSENT: rales, rhonchi, wheezes Cardiovascular exam: PRESENT: RRR. ABSENT: diastolic murmur, rubs, systolic murmur Pulses: PRESENT: normal dorsalis pedis pul Vascular exam: PRESENT: normal capillary refill GI/Abdominal exam: PRESENT: normal bowel sounds, soft. ABSENT: distended, guarding, mass, organolmegaly, rebound, tenderness Rectal exam: PRESENT: deferred Extremities exam: PRESENT: full ROM. ABSENT: calf tenderness, clubbing, pedal edema Neurological exam: PRESENT: alert, awake, oriented to person, oriented to place, oriented to time, oriented to situation, CN II-XII grossly intact. ABSENT: motor sensory deficit Psychiatric exam: PRESENT: appropriate affect, normal mood. ABSENT: homicidal ideation, suicidal ideation Skin exam: PRESENT: dry, intact, warm. ABSENT: cyanosis, rash Results Laboratory Results: 01/20/19 18:14 01/20/19 18:14 01/20/19 01/20/19 01/20/19 16:50 17:00 17:00 WBC Cancelled RBC Cancelled Hgb Cancelled Hct Cancelled MCV Cancelled MCH Cancelled MCHC Cancelled RDW Cancelled Plt Count Cancelled Seg Neutrophils % Cancelled Lymphocytes % Cancelled Monocytes % Cancelled Eosinophils % Cancelled Basophils % Cancelled Absolute Neutrophils Cancelled Absolute Lymphocytes Cancelled Absolute Monocytes Cancelled Absolute Eosinophils Cancelled Absolute Basophils Cancelled VBG pH VBG pCO2 VBG HCO3 VBG Base Excess Sodium Cancelled Potassium Cancelled Chloride Cancelled Carbon Dioxide Cancelled Anion Gap Cancelled BUN Cancelled Creatinine Cancelled Est GFR ( Amer) Cancelled Est GFR (Non-Af Amer) Cancelled Glucose Cancelled Lactic Acid Calcium Cancelled Total Bilirubin Cancelled AST Cancelled ALT Cancelled Alkaline Phosphatase Cancelled Total Protein Cancelled Albumin Cancelled Urine Color YELLOW Urine Appearance CLEAR Urine pH 6.0 Ur Specific [place] 1.012 Urine Protein NEGATIVE Urine Glucose (UA) NEGATIVE Urine Ketones NEGATIVE Urine Blood SMALL H Urine Nitrite NEGATIVE Ur Leukocyte Esterase SMALL H Urine WBC (Auto) 15 Urine RBC (Auto) 1 Blood Type Antibody Screen 01/20/19 01/20/19 01/20/19 17:00 17:00 18:14 WBC RBC Hgb Hct MCV MCH MCHC RDW Plt Count Seg Neutrophils % Lymphocytes % Monocytes % Eosinophils % Basophils % Absolute Neutrophils Absolute Lymphocytes Absolute Monocytes Absolute Eosinophils Absolute Basophils VBG pH Cancelled 7.39 VBG pCO2 Cancelled 34.6 L VBG HCO3 Cancelled 20.3 VBG Base Excess Cancelled -4.4 Sodium Potassium Chloride Carbon Dioxide Anion Gap BUN Creatinine Est GFR ( Amer) Est GFR (Non-Af Amer) Glucose Lactic Acid Cancelled Calcium Total Bilirubin AST ALT Alkaline Phosphatase Total Protein Albumin Urine Color Urine Appearance Urine pH Ur Specific [place] Urine Protein Urine Glucose (UA) Urine Ketones Urine Blood Urine Nitrite Ur Leukocyte Esterase Urine WBC (Auto) Urine RBC (Auto) Blood Type Antibody Screen 01/20/19 01/20/19 01/20/19 18:14 18:14 18:14 WBC 4.5 RBC 0.75 L Hgb 2.4 L* Hct 7.0 L* MCV 93 MCH 31.7 MCHC 33.9 RDW 18.6 H Plt Count 194 Seg Neutrophils % Not Reportable Lymphocytes % Not Reportable Monocytes % Not Reportable Eosinophils % Not Reportable Basophils % Not Reportable Absolute Neutrophils Not Reportable Absolute Lymphocytes Not Reportable Absolute Monocytes Not Reportable Absolute Eosinophils Not Reportable Absolute Basophils Not Reportable VBG pH VBG pCO2 VBG HCO3 VBG Base Excess Sodium 138.1 Potassium 4.4 Chloride 105 Carbon Dioxide 19 L Anion Gap 14 BUN 16 Creatinine 1.19 Est GFR ( Amer) > 60 Est GFR (Non-Af Amer) > 60 Glucose 119 H Lactic Acid 3.0 H Calcium 8.4 Total Bilirubin 0.4 AST 40 ALT 19 L Alkaline Phosphatase 87 Total Protein 9.2 H Albumin 4.1 Urine Color Urine Appearance Urine pH Ur Specific [place] Urine Protein Urine Glucose (UA) Urine Ketones Urine Blood Urine Nitrite Ur Leukocyte Esterase Urine WBC (Auto) Urine RBC (Auto) Blood Type Antibody Screen 01/20/19 01/20/19 01/21/19 18:14 21:41 00:43 WBC RBC Hgb Hct MCV MCH MCHC RDW Plt Count Seg Neutrophils % Lymphocytes % Monocytes % Eosinophils % Basophils % Absolute Neutrophils Absolute Lymphocytes Absolute Monocytes Absolute Eosinophils Absolute Basophils VBG pH VBG pCO2 VBG HCO3 VBG Base Excess Sodium Potassium Chloride Carbon Dioxide Anion Gap BUN Creatinine Est GFR ( Amer) Est GFR (Non-Af Amer) Glucose Lactic Acid 2.0 1.5 Calcium Total Bilirubin AST ALT Alkaline Phosphatase Total Protein Albumin Urine Color Urine Appearance Urine pH Ur Specific [place] Urine Protein Urine Glucose (UA) Urine Ketones Urine Blood Urine Nitrite Ur Leukocyte Esterase Urine WBC (Auto) Urine RBC (Auto) Blood Type A POSITIVE Antibody Screen NEGATIVE Impressions: Chest X-Ray 01/20/19 16:45 IMPRESSION: NO ACUTE FINDINGS. Assessment & Plan - Diagnosis (1) Anemia Qualifiers: Anemia type: other cause Other causes of anemia: chronic disease, other Qualified Code(s): D63.8 - Anemia in other chronic diseases classified elsewhere Is this a current diagnosis for this admission?: Yes Plan: Probable anemia of chronic disease both from HIV infection as well as from antiretroviral therapy. However, to be complete bone marrow biopsy would be recommended to rule out any causes such as early MDS. I have discussed this with the patient and he is unsure whether he wants to have this done. He will think about it today. If it is needed we can do it via fluoroscopic guidance in radiology.
[2019-01-21 08:53] LABS: HEMATOCRIT 20.3 % (37.9-51.0); MEAN CORPUSCULAR HEMOGLOBIN 29.8 pg (27.0-33.4); PLATELET COUNT 124 10^3/uL (150-450); RED BLOOD COUNT 2.38 10^6/uL (4.35-5.55); RED CELL DISTRIBUTION WIDTH 18.4 % (11.5-14.0); WHITE BLOOD COUNT 3.1 10^3/uL (4.0-10.5)
[2019-01-21 09:03] LABS: HEMOGLOBIN 7.1 g/dL (13.5-17.0)
[2019-01-21 09:04] LABS: MEAN CORPUSCULAR VOLUME 85 fl (80-97)
[2019-01-21 09:12] LABS: INTERNATIONAL RATION (INR) 1.33; PROTHROMBIN TIME 16.6 SEC (11.4-15.4)
[2019-01-21 09:13] LABS: PARTIAL THROMBOPLASTIN TIME 35.1 SEC (23.5-35.8)
[2019-01-21 09:23] LABS: ALANINE AMINOTRANSFERASE 22 U/L (21-72); ALBUMIN 3.6 g/dL (3.5-5.0); ALKALINE PHOSPHATASE 72 U/L (38-126); ANION GAP 12 (5-19); ASPARTATE AMINO TRANSFERASE 41 U/L (17-59); BILIRUBIN,DIRECT 0.3 mg/dL (0.0-0.4); BLOOD UREA NITROGEN 15 mg/dL (7-20); CALCIUM 8.6 mg/dL (8.4-10.2); CARBON DIOXIDE 20 mmol/L (22-30); CHLORIDE 108 mmol/L (98-107); GLUCOSE 95 mg/dL (75-110); PHOSPHORUS 4.1 mg/dL (2.5-4.5); POTASSIUM 4.6 mmol/L (3.6-5.0); SODIUM 139.9 mmol/L (137-145); TOTAL PROTEIN 8.2 g/dL (6.3-8.2)
[2019-01-21 09:29] LABS: FREE T3 3.01 pg/mL (2.77-5.27); FREE T4 (FREE THYROXINE) 0.88 ng/dL (0.78-2.19)
[2019-01-21 09:43] LABS: THYROID STIMULATING HORMONE 4.89 uIU/mL (0.47-4.68)
[2019-01-21] MEDS: ERTAPENEM SODIUM 1 GM in NORMAL SALINE 50 ML IV SCH (10:27)
[2019-01-21] MEDS: DOCUSATE SODIUM 100 MG CAPSULE PO SCH ×2 (10:28→17:26)
[2019-01-21] MEDS ORDERED: NALBUPHINE HCL INJ 10 MG/1 ML AMPULE IV PRN (11:24)
[2019-01-21 13:41] LABS: PATH REVIEW PATHOLOGIST REVIEWED
[2019-01-21 15:10] LABS: ABSOLUTE LYMPHOCYTES (AUTO) 0.9 10^3/uL (0.5-4.7); ABSOLUTE MONOCYTES (AUTO) 0.4 10^3/uL (0.1-1.4); ABSOLUTE NEUT (AUTO) 1.8 10^3/uL (1.7-8.2); BASOPHILS % (AUTO) 0.2 % (0-2); EOSINOPHILS % (AUTO) 0.1 % (0-6); HEMATOCRIT 20.6 % (37.9-51.0); LYMPHOCYTES % (AUTO) 29.2 % (13-45); MEAN CORPUSCULAR HEMOGLOBIN 29.3 pg (27.0-33.4); MEAN CORPUSCULAR HGB CONC 34.8 g/dL (32.0-36.0); MEAN CORPUSCULAR VOLUME 84 fl (80-97); MONOCYTES % (AUTO) 12.8 % (3-13); PLATELET COUNT 131 10^3/uL (150-450); RED BLOOD COUNT 2.44 10^6/uL (4.35-5.55); RED CELL DISTRIBUTION WIDTH 18.6 % (11.5-14.0); SEGMENTED NEUTROPHILS % (AUTO) 57.7 % (42-78); TOTAL CELLS COUNTED % (AUTO) 100 %
[2019-01-21 15:17] LABS: HEMOGLOBIN 7.2 g/dL (13.5-17.0)
--- NOTE | 2019-01-21 17:44 | PDOC PROGRESS REPORT ---
Subjective Progress Note for:: 01/21/19 Subjective:: Feels better after the transfusion Reason For Visit: PROFOUND ANEMIA,SIRS Physical Exam Vital Signs: Temp Pulse Resp BP Pulse Ox 97.9 F 59 L 14 124/84 100 01/21/19 16:00 01/21/19 16:00 01/21/19 16:00 01/21/19 16:00 01/21/19 16:00 Intake & Output 01/20/19 01/21/19 01/22/19 06:59 06:59 06:59 Intake Total 2990 725 Output Total 400 1250 Balance 2590 -525 Weight 70.8 kg General appearance: PRESENT: no acute distress, cooperative, thin, well- developed Head exam: PRESENT: atraumatic, normocephalic Eye exam: PRESENT: conjunctiva pale. ABSENT: scleral icterus Ear exam: PRESENT: normal external ear exam Mouth exam: PRESENT: moist, tongue midline Respiratory exam: PRESENT: clear to auscultation jovanni, symmetrical, unlabored. ABSENT: accessory muscle use, rales, rhonchi, tachypnea, wheezes Cardiovascular exam: PRESENT: RRR, +S1, +S2 GI/Abdominal exam: PRESENT: normal bowel sounds, soft. ABSENT: distended, tenderness Rectal exam: PRESENT: deferred Gentrourinary exam: ABSENT: indwelling catheter Musculoskeletal exam: PRESENT: ambulatory, normal inspection Neurological exam: PRESENT: alert, awake, oriented to person, oriented to place, oriented to time, oriented to situation, CN II-XII grossly intact. ABSENT: motor sensory deficit Psychiatric exam: PRESENT: appropriate affect, normal mood. ABSENT: agitated, anxious Focused psych exam: ABSENT: delusional Skin exam: PRESENT: other - Multiple tattoos Results Laboratory Results: 01/21/19 14:47 01/21/19 08:31 01/20/19 01/20/19 01/20/19 16:50 17:00 17:00 WBC Cancelled RBC Cancelled Hgb Cancelled Hct Cancelled MCV Cancelled MCH Cancelled MCHC Cancelled RDW Cancelled Plt Count Cancelled Seg Neutrophils % Cancelled Lymphocytes % Cancelled Monocytes % Cancelled Eosinophils % Cancelled Basophils % Cancelled Absolute Neutrophils Cancelled Absolute Lymphocytes Cancelled Absolute Monocytes Cancelled Absolute Eosinophils Cancelled Absolute Basophils Cancelled VBG pH VBG pCO2 VBG HCO3 VBG Base Excess Sodium Cancelled Potassium Cancelled Chloride Cancelled Carbon Dioxide Cancelled Anion Gap Cancelled BUN Cancelled Creatinine Cancelled Est GFR ( Amer) Cancelled Est GFR (Non-Af Amer) Cancelled Glucose Cancelled Lactic Acid Calcium Cancelled Phosphorus Magnesium Total Bilirubin Cancelled AST Cancelled ALT Cancelled Alkaline Phosphatase Cancelled Total Protein Cancelled Albumin Cancelled TSH Free T4 Free T3 pg/mL Urine Color YELLOW Urine Appearance CLEAR Urine pH 6.0 Ur Specific [place] 1.012 Urine Protein NEGATIVE Urine Glucose (UA) NEGATIVE Urine Ketones NEGATIVE Urine Blood SMALL H Urine Nitrite NEGATIVE Ur Leukocyte Esterase SMALL H Urine WBC (Auto) 15 Urine RBC (Auto) 1 Blood Type Antibody Screen 01/20/19 01/20/19 01/20/19 17:00 17:00 18:14 WBC RBC Hgb Hct MCV MCH MCHC RDW Plt Count Seg Neutrophils % Lymphocytes % Monocytes % Eosinophils % Basophils % Absolute Neutrophils Absolute Lymphocytes Absolute Monocytes Absolute Eosinophils Absolute Basophils VBG pH Cancelled 7.39 VBG pCO2 Cancelled 34.6 L VBG HCO3 Cancelled 20.3 VBG Base Excess Cancelled -4.4 Sodium Potassium Chloride Carbon Dioxide Anion Gap BUN Creatinine Est GFR ( Amer) Est GFR (Non-Af Amer) Glucose Lactic Acid Cancelled Calcium Phosphorus Magnesium Total Bilirubin AST ALT Alkaline Phosphatase Total Protein Albumin TSH Free T4 Free T3 pg/mL Urine Color Urine Appearance Urine pH Ur Specific [place] Urine Protein Urine Glucose (UA) Urine Ketones Urine Blood Urine Nitrite Ur Leukocyte Esterase Urine WBC (Auto) Urine RBC (Auto) Blood Type Antibody Screen 01/20/19 01/20/19 01/20/19 18:14 18:14 18:14 WBC 4.5 RBC 0.75 L Hgb 2.4 L* Hct 7.0 L* MCV 93 MCH 31.7 MCHC 33.9 RDW 18.6 H Plt Count 194 Seg Neutrophils % Not Reportable Lymphocytes % Not Reportable Monocytes % Not Reportable Eosinophils % Not Reportable Basophils % Not Reportable Absolute Neutrophils Not Reportable Absolute Lymphocytes Not Reportable Absolute Monocytes Not Reportable Absolute Eosinophils Not Reportable Absolute Basophils Not Reportable VBG pH VBG pCO2 VBG HCO3 VBG Base Excess Sodium 138.1 Potassium 4.4 Chloride 105 Carbon Dioxide 19 L Anion Gap 14 BUN 16 Creatinine 1.19 Est GFR ( Amer) > 60 Est GFR (Non-Af Amer) > 60 Glucose 119 H Lactic Acid 3.0 H Calcium 8.4 Phosphorus Magnesium Total Bilirubin 0.4 AST 40 ALT 19 L Alkaline Phosphatase 87 Total Protein 9.2 H Albumin 4.1 TSH Free T4 Free T3 pg/mL Urine Color Urine Appearance Urine pH Ur Specific [place] Urine Protein Urine Glucose (UA) Urine Ketones Urine Blood Urine Nitrite Ur Leukocyte Esterase Urine WBC (Auto) Urine RBC (Auto) Blood Type Antibody Screen 01/20/19 01/20/19 01/21/19 18:14 21:41 00:43 WBC RBC Hgb Hct MCV MCH MCHC RDW Plt Count Seg Neutrophils % Lymphocytes % Monocytes % Eosinophils % Basophils % Absolute Neutrophils Absolute Lymphocytes Absolute Monocytes Absolute Eosinophils Absolute Basophils VBG pH VBG pCO2 VBG HCO3 VBG Base Excess Sodium Potassium Chloride Carbon Dioxide Anion Gap BUN Creatinine Est GFR ( Amer) Est GFR (Non-Af Amer) Glucose Lactic Acid 2.0 1.5 Calcium Phosphorus Magnesium Total Bilirubin AST ALT Alkaline Phosphatase Total Protein Albumin TSH Free T4 Free T3 pg/mL Urine Color Urine Appearance Urine pH Ur Specific [place] Urine Protein Urine Glucose (UA) Urine Ketones Urine Blood Urine Nitrite Ur Leukocyte Esterase Urine WBC (Auto) Urine RBC (Auto) Blood Type A POSITIVE Antibody Screen NEGATIVE 01/21/19 01/21/19 01/21/19 08:31 08:31 08:31 WBC 3.1 L RBC 2.38 L Hgb 7.1 L D Hct 20.3 L MCV 85 D MCH 29.8 MCHC 35.0 RDW 18.4 H Plt Count 124 L Seg Neutrophils % Lymphocytes % Monocytes % Eosinophils % Basophils % Absolute Neutrophils Absolute Lymphocytes Absolute Monocytes Absolute Eosinophils Absolute Basophils VBG pH VBG pCO2 VBG HCO3 VBG Base Excess Sodium 139.9 Potassium 4.6 Chloride 108 H Carbon Dioxide 20 L Anion Gap 12 BUN 15 Creatinine 0.81 Est GFR ( Amer) > 60 Est GFR (Non-Af Amer) > 60 Glucose 95 Lactic Acid 0.7 Calcium 8.6 Phosphorus 4.1 Magnesium 2.0 Total Bilirubin 1.0 AST 41 ALT 22 Alkaline Phosphatase 72 Total Protein 8.2 Albumin 3.6 TSH Free T4 Free T3 pg/mL Urine Color Urine Appearance Urine pH Ur Specific [place] Urine Protein Urine Glucose (UA) Urine Ketones Urine Blood Urine Nitrite Ur Leukocyte Esterase Urine WBC (Auto) Urine RBC (Auto) Blood Type Antibody Screen 01/21/19 01/21/19 08:31 14:47 WBC 3.0 L RBC 2.44 L Hgb 7.2 L Hct 20.6 L MCV 84 MCH 29.3 MCHC 34.8 RDW 18.6 H Plt Count 131 L Seg Neutrophils % 57.7 Lymphocytes % 29.2 Monocytes % 12.8 Eosinophils % 0.1 Basophils % 0.2 Absolute Neutrophils 1.8 Absolute Lymphocytes 0.9 Absolute Monocytes 0.4 Absolute Eosinophils 0.0 Absolute Basophils 0.0 VBG pH VBG pCO2 VBG HCO3 VBG Base Excess Sodium Potassium Chloride Carbon Dioxide Anion Gap BUN Creatinine Est GFR ( Amer) Est GFR (Non-Af Amer) Glucose Lactic Acid Calcium Phosphorus Magnesium Total Bilirubin AST ALT Alkaline Phosphatase Total Protein Albumin TSH 4.89 H Free T4 0.88 Free T3 pg/mL 3.01 Urine Color Urine Appearance Urine pH Ur Specific [place] Urine Protein Urine Glucose (UA) Urine Ketones Urine Blood Urine Nitrite Ur Leukocyte Esterase Urine WBC (Auto) Urine RBC (Auto) Blood Type Antibody Screen Impressions: Chest X-Ray 01/20/19 16:45 IMPRESSION: NO ACUTE FINDINGS. Assessment and Plan - Diagnosis (1) Severe anemia Is this a current diagnosis for this admission?: Yes Plan: Patient will be admitted to the ICU where he will be closely monitored as he receives 6 units of packed red blood cells in transfusion. His status will be monitored closely and any problems related to transfusion will be treated immediately. A hematology consultation will be obtained with Dr. Cabrera. A CBC and an extended metabolic profile will be obtained on a daily basis as part of monitoring his anemia. 01/21/2019-appreciate hematology input. The patient received 3 units of packed red blood cells. His hemoglobin is up to 7.1. I did not order 1/4 unit. He is chronically living with a hemoglobin of 3-5. If his hemoglobin drops below 7 on tomorrow's assessment consider 1 additional unit of packed cells. Hematology discussed the possibility of a bone marrow aspiration but the patient has deferred at this time. He believes that his severe anemia started after his current regimen of antiretroviral medications. He does have an appointment with his infectious disease doctor in approximately 2 weeks. (2) SIRS (systemic inflammatory response syndrome) Is this a current diagnosis for this admission?: Yes Plan: Patient had a significant fever 104 F at home, and also claimed orthostatic hypotension. No obvious source of infection is apparent although there are some changes in the urinalysis with culture pending. Blood cultures are also pending. Patient be monitored closely with serial lactic acids (first lactic acid 3.0). He will be treated with a broad-spectrum antibiotic using ertapenem 1 g IV every 24 hours. 01/21/2019-vital signs are now stable. He is afebrile. We will continue antibiotics at this time until 48 hours of no growth on all of his cultures. (3) Fever Qualifiers: Fever type: unspecified Qualified Code(s): R50.9 - Fever, unspecified Is this a current diagnosis for this admission?: Yes Plan: Patient's fever will be addressed with routine symptomatic and supportive care. Additionally he will receive Tylenol and/or ibuprofen as required for control of any fever. Should he have pain associated with his fever he will receive Nubain 10 mg IV every 3 hours on a as needed basis for pain. 01/21/2019-the patient's fever has resolved. He is on antibiotic therapy. We will continue to monitor. (4) Near syncope Is this a current diagnosis for this admission?: Yes Plan: Patient's near syncope will be treated with blood transfusions and IV fluids. Orthostatic vital signs will be monitored as appropriate. 01/21/2019-most likely due to the severe anemia. No further symptoms today. (5) HIV (human immunodeficiency virus infection) Qualifiers: HIV symptom status: asymptomatic Qualified Code(s): Z21 - Asymptomatic human immunodeficiency virus [HIV] infection status Is this a current diagnosis for this admission?: Yes Plan: The patient's infectious disease physician may be consulted if necessary. Kristen clay will be resumed on his usual HAART therapy as soon as possible. 01/21/2019-the patient does have his current antiretroviral medications on hand. He will continue to take them as directed by his infectious disease physician. He has an appointment with her in approximately 2 weeks. - Time Time Spent with patient: 15-24 minutes Medications reviewed and adjusted accordingly: Yes Anticipated discharge: Home Within: within 48 hours
[2019-01-22 04:09] LABS: HEMATOCRIT 21.2 % (37.9-51.0); MEAN CORPUSCULAR HEMOGLOBIN 29.5 pg (27.0-33.4); MEAN CORPUSCULAR VOLUME 84 fl (80-97); PLATELET COUNT 125 10^3/uL (150-450); RED BLOOD COUNT 2.52 10^6/uL (4.35-5.55); RED CELL DISTRIBUTION WIDTH 18.1 % (11.5-14.0)
[2019-01-22 04:11] LABS: HEMOGLOBIN 7.4 g/dL (13.5-17.0)
[2019-01-22 04:18] LABS: ALANINE AMINOTRANSFERASE 29 U/L (21-72); ALBUMIN 3.8 g/dL (3.5-5.0); ALKALINE PHOSPHATASE 72 U/L (38-126); ANION GAP 10 (5-19); ASPARTATE AMINO TRANSFERASE 36 U/L (17-59); BILIRUBIN,DIRECT 0.2 mg/dL (0.0-0.4); BILIRUBIN,TOTAL 0.4 mg/dL (0.2-1.3); BLOOD UREA NITROGEN 13 mg/dL (7-20); CALCIUM 8.7 mg/dL (8.4-10.2); CARBON DIOXIDE 21 mmol/L (22-30); CHLORIDE 108 mmol/L (98-107); GLUCOSE 105 mg/dL (75-110); PHOSPHORUS 3.9 mg/dL (2.5-4.5); POTASSIUM 4.6 mmol/L (3.6-5.0); SODIUM 138.9 mmol/L (137-145); TOTAL PROTEIN 8.5 g/dL (6.3-8.2)
[2019-01-22 05:15] LABS: INTERNATIONAL RATION (INR) 1.19; PARTIAL THROMBOPLASTIN TIME 34.5 SEC (23.5-35.8); PROTHROMBIN TIME 15.2 SEC (11.4-15.4)
[2019-01-22] MEDS: HEPARIN SOD (PORCINE) 5,000 UNIT/ML 1 ML SYRINGE SUBCUT SCH (06:17)
--- NOTE | 2019-01-22 08:54 | PDOC PROGRESS REPORT ---
Subjective Progress Note for:: 01/22/19 Subjective:: Patient doing a little bit better this morning, he is decided against doing bone marrow biopsy at this point Reason For Visit: PROFOUND ANEMIA,SIRS Physical Exam Vital Signs: Temp Pulse Resp BP Pulse Ox 102.1 F H 65 16 102/59 L 100 01/22/19 07:56 01/21/19 22:00 01/21/19 22:00 01/22/19 07:56 01/21/19 22:00 Intake & Output 01/21/19 01/22/19 01/23/19 06:59 06:59 06:59 Intake Total 2990 725 Output Total 400 1850 400 Balance 4240 -0055 -400 Weight 70.8 kg 74.7 kg General appearance: PRESENT: no acute distress, well-developed, well-nourished Head exam: PRESENT: atraumatic, normocephalic Eye exam: PRESENT: conjunctiva pink, EOMI, PERRLA. ABSENT: scleral icterus Ear exam: PRESENT: normal external ear exam Mouth exam: PRESENT: moist, tongue midline Neck exam: ABSENT: carotid bruit, JVD, lymphadenopathy, thyromegaly Respiratory exam: PRESENT: clear to auscultation jovanni. ABSENT: rales, rhonchi, wheezes Cardiovascular exam: PRESENT: RRR. ABSENT: diastolic murmur, rubs, systolic murmur Pulses: PRESENT: normal dorsalis pedis pul Vascular exam: PRESENT: normal capillary refill GI/Abdominal exam: PRESENT: normal bowel sounds, soft. ABSENT: distended, guarding, mass, organolmegaly, rebound, tenderness Rectal exam: PRESENT: deferred Extremities exam: PRESENT: full ROM. ABSENT: calf tenderness, clubbing, pedal edema Neurological exam: PRESENT: alert, awake, oriented to person, oriented to place, oriented to time, oriented to situation, CN II-XII grossly intact. ABSENT: motor sensory deficit Psychiatric exam: PRESENT: appropriate affect, normal mood. ABSENT: homicidal ideation, suicidal ideation Skin exam: PRESENT: dry, intact, warm. ABSENT: cyanosis, rash Results Laboratory Results: 01/22/19 03:44 01/22/19 03:44 01/20/19 01/21/19 01/21/19 18:14 08:31 08:31 WBC 3.1 L RBC 2.38 L Hgb 7.1 L D Hct 7.0 L* 20.3 L MCV 85 D MCH 29.8 MCHC 35.0 RDW 18.4 H Plt Count 124 L Seg Neutrophils % Lymphocytes % Monocytes % Eosinophils % Basophils % Absolute Neutrophils Absolute Lymphocytes Absolute Monocytes Absolute Eosinophils Absolute Basophils Sodium Potassium Chloride Carbon Dioxide Anion Gap BUN Creatinine Est GFR ( Amer) Est GFR (Non-Af Amer) Glucose Lactic Acid 0.7 Calcium Phosphorus Magnesium Total Bilirubin AST ALT Alkaline Phosphatase Total Protein Albumin TSH Free T4 Free T3 pg/mL 01/21/19 01/21/19 01/21/19 08:31 08:31 14:47 WBC 3.0 L RBC 2.44 L Hgb 7.2 L Hct 20.6 L MCV 84 MCH 29.3 MCHC 34.8 RDW 18.6 H Plt Count 131 L Seg Neutrophils % 57.7 Lymphocytes % 29.2 Monocytes % 12.8 Eosinophils % 0.1 Basophils % 0.2 Absolute Neutrophils 1.8 Absolute Lymphocytes 0.9 Absolute Monocytes 0.4 Absolute Eosinophils 0.0 Absolute Basophils 0.0 Sodium 139.9 Potassium 4.6 Chloride 108 H Carbon Dioxide 20 L Anion Gap 12 BUN 15 Creatinine 0.81 Est GFR ( Amer) > 60 Est GFR (Non-Af Amer) > 60 Glucose 95 Lactic Acid Calcium 8.6 Phosphorus 4.1 Magnesium 2.0 Total Bilirubin 1.0 AST 41 ALT 22 Alkaline Phosphatase 72 Total Protein 8.2 Albumin 3.6 TSH 4.89 H Free T4 0.88 Free T3 pg/mL 3.01 01/22/19 01/22/19 03:44 03:44 WBC 3.0 L RBC 2.52 L Hgb 7.4 L Hct 21.2 L MCV 84 MCH 29.5 MCHC 35.0 RDW 18.1 H Plt Count 125 L Seg Neutrophils % Lymphocytes % Monocytes % Eosinophils % Basophils % Absolute Neutrophils Absolute Lymphocytes Absolute Monocytes Absolute Eosinophils Absolute Basophils Sodium 138.9 Potassium 4.6 Chloride 108 H Carbon Dioxide 21 L Anion Gap 10 BUN 13 Creatinine 0.84 Est GFR ( Amer) > 60 Est GFR (Non-Af Amer) > 60 Glucose 105 Lactic Acid Calcium 8.7 Phosphorus 3.9 Magnesium 1.8 Total Bilirubin 0.4 AST 36 ALT 29 Alkaline Phosphatase 72 Total Protein 8.5 H Albumin 3.8 TSH Free T4 Free T3 pg/mL Impressions: Chest X-Ray 01/20/19 16:45 IMPRESSION: NO ACUTE FINDINGS. Assessment & Plan - Diagnosis (1) Anemia Qualifiers: Anemia type: other cause Other causes of anemia: chronic disease, other Qualified Code(s): D63.8 - Anemia in other chronic diseases classified elsewhere Is this a current diagnosis for this admission?: Yes Plan: Likely combination of both the HIV as well as the HIV medications, ultimately he may be a candidate for erythropoietin stimulating therapy but prior to that we would recommend doing a bone marrow biopsy. He will be seeing his outpatient infectious disease doctor who will decide on who to send him to for this.
[2019-01-22] MEDS: DOCUSATE SODIUM 100 MG CAPSULE PO SCH (09:01)
[2019-01-22] MEDS: ERTAPENEM SODIUM 1 GM in NORMAL SALINE 50 ML IV SCH (09:03)
[2019-01-22] MEDS: FAMOTIDINE 20 MG TABLET PO SCH (09:04)
--- NOTE | 2019-01-22 11:34 | PDOC DISCHARGE SUMMARY ---
General - Admit/Disc Date/PCP Admission Date/Primary Care Provider: 01/20/19 20:11 Discharge Date: 01/22/19 - Discharge Diagnosis (1) Severe anemia Is this a current diagnosis for this admission?: Yes Summary: This is not the first episode of profound anemia however this episode revealed the lowest hemoglobin that the patient is ever experienced. He received 4 units of packed red blood cells and his hemoglobin is up to 7.4. Posttransfusion CBC was 7.1. Hematology saw the patient. A bone marrow might provide very useful information. The patient reports that he feels it is coincidental with starting his current antiretroviral medications. He is going to see his infectious disease doctor in approximately 2 weeks. This is something he should discuss with her. I also discussed the fact that if this happens again he absolutely needs to have a bone marrow and further work-up. (2) SIRS (systemic inflammatory response syndrome) Is this a current diagnosis for this admission?: Yes Summary: With aggressive IV fluids the service has resolved. There is no identifiable focus of infection and so I am not going to continue IV antibiotics as an outpatient. We briefly discussed the possibility of prophylaxis however I will defer to the infectious disease physician. (3) Fever Is this a current diagnosis for this admission?: Yes Summary: He did have a fever again this morning but it responded to Tylenol. Without a source of infection it could be a reaction to the antibiotics. He is past the window of a transfusion reaction so I do not believe it is related. He can use acetaminophen if needed. (4) Near syncope Is this a current diagnosis for this admission?: Yes Summary: Likely due to the profound anemia. He feels much better today having received 4 units of packed red blood cells. (5) HIV (human immunodeficiency virus infection) Is this a current diagnosis for this admission?: Yes Summary: As noted above there is consideration of the profound anemia related to the HIV medications. He does have an appointment with his infectious disease physician in approximately 2 weeks. He is otherwise stable at this time. - Additional Information Resuscitation Status: Full Code Discharge Diet: As Tolerated Discharge Activity: Activity As Tolerated Home Medications: Darunavir/Cobicistat [Prezcobix 800 mg-150 mg Tablet] 1 each PO DAILY 01/20/19 Emtricitabine/Tenofov Alafenam [Descovy 200-25 mg Tablet] 1 each PO DAILY 01/20/19 Gabapentin [Neurontin] 600 mg PO QHS 01/20/19 History of Present Illness Patient complains of: Worsening profound weakness with decreased appetite, nausea and vomiting. History of Present Illness: REGINA SIFUENTES is a 33 year old male with a history of HIV. He had a 1 week decline with poor appetite and increased weakness. Upon arrival to the emergency department laboratory studies revealed hemoglobin of 2.4 with hematocrit of 7. His lactic acid was 3.0. He initially had a fever of 104F. He was given IV fluids and referred to the hospital service for admission. Hospital Course Hospital Course: See above as well. The patient had a benign hospital course. He received 4 units of packed red blood cells as well as IV fluids. He felt much better after the transfusion. His appetite has returned. He feels back to his baseline. He will discharged home. He will continue his current regimen of antiretroviral medications. He does have an appointment with his infectious disease doctor in 2 weeks. He was seen by hematology and bone marrow was suggested. At this time he declined. Physical Exam Vital Signs: Temp Pulse Resp BP Pulse Ox 102.1 F H 65 16 102/59 L 100 01/22/19 07:56 01/21/19 22:00 01/21/19 22:00 01/22/19 07:56 01/21/19 22:00 Intake & Output 01/21/19 01/22/19 01/23/19 06:59 06:59 06:59 Intake Total 2990 725 50 Output Total 400 1850 400 Balance 0860 -1125 -350 Weight 70.8 kg 74.7 kg General appearance: PRESENT: no acute distress, cooperative, thin, well-develop ed Head exam: PRESENT: atraumatic, normocephalic Eye exam: PRESENT: conjunctiva pale. ABSENT: scleral icterus Ear exam: PRESENT: normal external ear exam Mouth exam: PRESENT: moist, tongue midline Respiratory exam: PRESENT: clear to auscultation jovanni, symmetrical, unlabored. ABSENT: rales, rhonchi, tachypnea, wheezes Cardiovascular exam: PRESENT: RRR, +S1, +S2, systolic murmur - 2/6 GI/Abdominal exam: PRESENT: normal bowel sounds, soft. ABSENT: distended, tenderness Rectal exam: PRESENT: deferred Extremities exam: ABSENT: joint swelling, pedal edema Musculoskeletal exam: PRESENT: ambulatory, normal inspection Neurological exam: PRESENT: alert, awake, oriented to person, oriented to place, oriented to time, oriented to situation, CN II-XII grossly intact Psychiatric exam: PRESENT: appropriate affect, normal mood. ABSENT: agitated, anxious Focused psych exam: ABSENT: delusional, restlessness Skin exam: PRESENT: dry, normal color, warm Results Laboratory Results: 01/22/19 03:44 01/22/19 03:44 01/20/19 01/21/19 01/22/19 18:14 14:47 03:44 WBC 3.0 L 3.0 L RBC 2.44 L 2.52 L Hgb 7.2 L 7.4 L Hct 7.0 L* 20.6 L 21.2 L MCV 84 84 MCH 29.3 29.5 MCHC 34.8 35.0 RDW 18.6 H 18.1 H Plt Count 131 L 125 L Seg Neutrophils % 57.7 Lymphocytes % 29.2 Monocytes % 12.8 Eosinophils % 0.1 Basophils % 0.2 Absolute Neutrophils 1.8 Absolute Lymphocytes 0.9 Absolute Monocytes 0.4 Absolute Eosinophils 0.0 Absolute Basophils 0.0 Sodium Potassium Chloride Carbon Dioxide Anion Gap BUN Creatinine Est GFR ( Amer) Est GFR (Non-Af Amer) Glucose Calcium Phosphorus Magnesium Total Bilirubin AST ALT Alkaline Phosphatase Total Protein Albumin 01/22/19 03:44 WBC RBC Hgb Hct MCV MCH MCHC RDW Plt Count Seg Neutrophils % Lymphocytes % Monocytes % Eosinophils % Basophils % Absolute Neutrophils Absolute Lymphocytes Absolute Monocytes Absolute Eosinophils Absolute Basophils Sodium 138.9 Potassium 4.6 Chloride 108 H Carbon Dioxide 21 L Anion Gap 10 BUN 13 Creatinine 0.84 Est GFR ( Amer) > 60 Est GFR (Non-Af Amer) > 60 Glucose 105 Calcium 8.7 Phosphorus 3.9 Magnesium 1.8 Total Bilirubin 0.4 AST 36 ALT 29 Alkaline Phosphatase 72 Total Protein 8.5 H Albumin 3.8 Impressions: Chest X-Ray 01/20/19 16:45 IMPRESSION: NO ACUTE FINDINGS. Qualifiers - * PATIENT BEING DISCHARGED WITH ANY OF THE FOLLOWING DIAGNOSIS: No Acute Heart Failure - Is this a Heart Failure Patient?: No Plan Time Spent: Greater than 30 Minutes
[2019-01-22 12:30] VITALS: BP 114/63
== END 2019-01-22 12:23 | disposition home or self-care (01) | DRG 977 ==
LOC: ER 16:33 → EH 20:11 → ICU 21:32
PROVIDERS: ADMIT Emergency Medicine; ATTEND Emergency Medicine
PROC: 30233N1 Transfusion of Nonautologous Red Blood Cells into Peripheral Vein, Percutaneous Approach (ICD-10-PCS; principal; 2019-01-20)
DX: B20 Human immunodeficiency virus [HIV] disease (principal); R57.0 Cardiogenic shock; F12.10 Cannabis abuse, uncomplicated; Z87.891 Personal history of nicotine dependence; D63.8 Anemia in other chronic diseases classified elsewhere; Z53.29 Procedure and treatment not carried out because of patient's decision for other reasons
CPT/HCPCS: 36415; 36430; 71046; 80053; 80307; 81001; 82803; 83605; 83735; 84100; 84439; 84443; 84481; 85025; 85027; 85610; 85730; 86850; 86900; 86901; 86920; 87040; 87077; 87086; 93005; 93010; J1335; J1956; J3370; J7030; P9016

== ENCOUNTER 2019-11-03 07:04 | Emergency (ER) | payer MEDICAID ==
[2019-11-03 07:31] VITALS: BP 148/92
--- NOTE | 2019-11-03 08:06 | ER Document Report ---
ED Extremity Problem, Lower - General Chief Complaint: Skin Problem Stated Complaint: LEG/THIGH PAIN Time Seen by Provider: 11/03/19 07:38 Mode of Arrival: Ambulatory Information source: Patient TRAVEL OUTSIDE OF THE [place] IN LAST 30 DAYS: No - HPI Notes: Patient presents with bilateral upper thigh discomfort. He states a burning sensation. He states he has had it before and told it was fungus. He states he has no dysuria. No problems with urination or bowel movements. No abdominal pain. He states he has a rash on the inner thighs and scrotum but nowhere else. The discomfort is mild. It is constant. It is worse if touched and better if left alone. It radiates across both thighs. - Related Data Allergies/Adverse Reactions: No Known Allergies Allergy (Verified 11/03/19 07:25) Past Medical History - General Information source: Patient - Social History Smoking Status: Never Smoker Chew tobacco use (# tins/day): No Frequency of alcohol use: Social Drug Abuse: None Family History: COPD, Hypertension, Malignancy Patient has suicidal ideation: No Patient has homicidal ideation: No - Past Medical History Cardiac Medical History: Denies: Hx Coronary Artery Disease, Hx DVT, Hx Hypercholesterolemia, Hx Hypertension, Hx Pulmonary Embolism Pulmonary Medical History: Reports: Hx Pneumonia Denies: Hx Asthma, Hx COPD Neurological Medical History: Denies: Hx Seizures Endocrine Medical History: Denies: Hx Diabetes Mellitus Type 1, Hx Diabetes Mellitus Type 2, Hx Hyperthyroidism, Hx Hypothyroidism Renal/ Medical History: Denies: Hx Peritoneal Dialysis GI Medical History: Denies: Hx Cirrhosis, Hx Crohn's Disease, Hx Hepatitis, Hx Ulcerative Colitis Musculoskeletal Medical History: Denies Hx Arthritis, Denies Hx Gout Skin Medical History: Denies Hx Eczema, Denies Hx Psoriasis Psychiatric Medical History: Denies: Hx Depression Infectious Medical History: 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. Denies: Hx Hepatitis - Immunizations Immunizations up to date: Yes Hx Diphtheria, Pertussis, Tetanus Vaccination: Yes Review of Systems - Review of Systems Constitutional: denies: Chills, Fever Cardiovascular: denies: Chest pain, Palpitations Respiratory: denies: Cough, Short of breath Physical Exam - Vital signs Vitals: Temp Pulse Resp BP Pulse Ox 98.0 F 73 12 148/92 H 100 11/03/19 07:24 11/03/19 07:24 11/03/19 07:24 11/03/19 07:24 11/03/19 07:24 Interpretation: Normal - General General appearance: Appears well, Alert - HEENT Head: Normocephalic, Atraumatic Eyes: Normal Pupils: PERRL - Respiratory Respiratory status: No respiratory distress Chest status: Nontender Breath sounds: Normal Chest palpation: Normal - Cardiovascular Rhythm: Regular Heart sounds: Normal auscultation Murmur: No - Abdominal Inspection: Normal Distension: No distension Bowel sounds: Normal Tenderness: Nontender Organomegaly: No organomegaly - Back Back: Normal, Nontender - Extremities General upper extremity: Normal inspection, Nontender, Normal color, Normal ROM, Normal temperature General lower extremity: Normal inspection, Nontender, Normal color, Normal ROM, Normal temperature, Normal weight bearing. No: Florentin's sign - Neurological Neuro grossly intact: Yes Cognition: Normal Orientation: AAOx4 Willy Coma Scale Eye Opening: Spontaneous Willy Coma Scale Verbal: Oriented [place] Coma Scale Motor: Obeys Commands [place] Coma Scale Total: 15 Speech: Normal Motor strength normal: LUE, RUE, LLE, RLE Sensory: Normal - Psychological Associated symptoms: Normal affect, Normal mood - Skin Skin Temperature: Warm Skin Moisture: Dry Skin Color: Other - Bilateral upper inner thighs and scrotum have areas of smooth erythema with some excoriation consistent with fungus. Course - Vital Signs Vital signs: Temp Pulse Resp BP Pulse Ox 98.0 F 73 12 148/92 H 100 11/03/19 07:24 11/03/19 07:24 11/03/19 07:24 11/03/19 07:24 11/03/19 07:24 Discharge - Discharge Clinical Impression: Tinea corporis Condition: Stable Disposition: HOME, SELF-CARE Instructions: Ringworm (Tinea Corporis) ([facility]) Prescriptions: Clotrimazole [Lotrimin AF] 1 applic TP BID 14 Days #1 cream..g. Referrals: [facility] [Provider Group] - Follow up in 1 week
== END 2019-11-03 08:00 | disposition home or self-care (01) ==
LOC: ER 07:04
DX: B35.4 Tinea corporis (principal); Z21 Asymptomatic human immunodeficiency virus [HIV] infection status
CPT/HCPCS: 99282

== ENCOUNTER 2019-12-25 12:55 | Emergency (ER) | payer MEDICAID ==
[2019-12-25] MEDS ORDERED: VALACYCLOVIR HCL 500 MG TABLET PO ONE (13:11)
--- NOTE | 2019-12-25 13:18 | ER Document Report ---
ED Skin Rash/Insect Bite/Abscs - General Chief Complaint: Skin Problem Stated Complaint: RASH/SKIN PROBLEM Time Seen by Provider: 12/25/19 13:11 Mode of Arrival: Ambulatory Information source: Patient Notes: 34-year-old male presented to ED for shingles to the left chest and back. He states he has had severe pain for about 2 days. He is alert oriented respirations regular and unlabored speaking in full sentences he states the pain is getting much worse. He states the pain is a 5 out of 5 sharp pressure burning. TRAVEL OUTSIDE OF THE [place] IN LAST 30 DAYS: No - HPI Patient complains to provider of: Skin rash/lesion Onset: Other Onset/Duration: Gradual, Worse Quality of pain: Burning, Sharp, Throbbing Severity: Severe Pain Level: 5 Skin Character: Vesicular - Telephone Quality of rash: Painful Identify cause: Yes - Darius Exacerbated by: Movement Relieved by: Denies Similar symptoms previously: No Recently seen / treated by doctor: No - Related Data Allergies/Adverse Reactions: No Known Allergies Allergy (Verified 11/03/19 07:25) Past Medical History - General Information source: Patient - Social History Smoking Status: Never Smoker Frequency of alcohol use: Heavy Drug Abuse: None - Daily Lives with: Family Family History: COPD, Hypertension, Malignancy Patient has homicidal ideation: No - Past Medical History Cardiac Medical History: Reports: None Pulmonary Medical History: Reports: Hx Pneumonia EENT Medical History: Reports: None Neurological Medical History: Reports: None. Denies: Hx Seizures Endocrine Medical History: Reports: None Renal/ Medical History: Reports: None Malignancy Medical History: Reports None GI Medical History: Reports: None Musculoskeletal Medical History: Reports None Skin Medical History: Reports None Psychiatric Medical History: Reports: None Traumatic Medical History: Reports: None Infectious Medical History: 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 Surgical Hx: Negative - Immunizations Immunizations up to date: Yes Hx Diphtheria, Pertussis, Tetanus Vaccination: Yes Review of Systems - Review of Systems Constitutional: No symptoms reported EENT: No symptoms reported Cardiovascular: No symptoms reported Respiratory: No symptoms reported Gastrointestinal: No symptoms reported Genitourinary: No symptoms reported Male Genitourinary: No symptoms reported Musculoskeletal: No symptoms reported Skin: Rash - Herpetiform vesicular rash left chest to back Hematologic/Lymphatic: No symptoms reported Neurological/Psychological: No symptoms reported -: Yes All other systems reviewed and negative Physical Exam - Vital signs Vitals: Temp Pulse Resp BP 98.0 F 78 18 152/102 H 12/25/19 13:01 12/25/19 13:01 12/25/19 13:01 12/25/19 13:01 Interpretation: Normal - General General appearance: Appears well, Alert - HEENT Head: Normocephalic, Atraumatic Eyes: Normal Pupils: PERRL - Respiratory Respiratory status: No respiratory distress Chest status: Nontender Breath sounds: Normal Chest palpation: Normal - Cardiovascular Rhythm: Regular Heart sounds: Normal auscultation Murmur: No - Abdominal Inspection: Normal Distension: No distension Bowel sounds: Normal Tenderness: Nontender Organomegaly: No organomegaly - Back Back: Normal, Nontender Notes: Shingles left chest and back - Extremities General upper extremity: Normal inspection, Nontender, Normal color, Normal ROM, Normal temperature General lower extremity: Normal inspection, Nontender, Normal color, Normal ROM, Normal temperature, Normal weight bearing. No: Florentin's sign - Neurological Neuro grossly intact: Yes Cognition: Normal Orientation: AAOx4 Willy Coma Scale Eye Opening: Spontaneous [place] Coma Scale Verbal: Oriented [place] Coma Scale Motor: Obeys Commands Wil[place] Coma Scale Total: 15 Speech: Normal Motor strength normal: LUE, RUE, LLE, RLE Sensory: Normal - Psychological Associated symptoms: Normal affect, Normal mood - Skin Skin Temperature: Warm Skin Moisture: Dry Skin Color: Normal Location of irregularity: Chest, Back Character of irregularity: Vesicular - Herpetiform Irregularity with: Tenderness Course - Vital Signs Vital signs: Temp Pulse Resp BP Pulse Ox 98.0 F 78 18 146/102 H 12/25/19 13:08 12/25/19 13:01 12/25/19 13:01 12/25/19 13:20 Discharge - Discharge Clinical Impression: Shingles Qualifiers: Herpes zoster complications: without complications Qualified Code(s): B02.9 - Zoster without complications Condition: Stable Disposition: HOME, SELF-CARE Additional Instructions: Shingles You have shingles. Shingles is caused by the chicken pox virus, The virus has been surviving dormant in a nerve cell since you had chicken pox years ago. The virus has spread down a nerve root to reach the skin. Typically, an band-like area of pain and skin sensitivity develops, then small blisters erupt in the area. Shingles lasts two or three weeks, but sometimes leaves persistent pain. You are contagious -- you can give children chicken pox. But you can't give anyone shingles. Antiviral medicines (such as acyclovir or famciclovir) can help, but the rash usually worsens for about a week. Pain medication is often given if the area hurts. Antihistamines such as Benadryl may be necessary for itching if it does not respond to soda baths and calamine lotion. Sometimes cortisone medicine or nerve-block shots are necessary if pain is severe. If the area remains severely painful as the sores heal, or if you suspect an infection developing in the sores, see your doctor. Valtrex Valtrex) is used to treat infections caused by the Herpes family of viruses. It's available as capsules Valtrex is most effective if started at the first sign of the viral outbreak. It can decrease the severity and duration of symptoms. However, it doesn't eliminate the virus from the body completely. If you're prone to repeated outbreaks of herpes, you'll continue to have attacks. If pills have been prescribed, take them for the full recommended course. Occasionally, mild nausea or headaches may occur. Call the doctor if you develop wheezing, itching, rash, shortness of breath, or lightheadedness. Oral Narcotic Medication You have been given a prescription for pain control. This medication is a narcotic. It's best taken with food, as nausea can result if taken on an empty stomach. Don't operate machinery or drive within six hours of taking this medication. Do not combine this medicine with alcohol, or with any medication which can cause sedation (such as cold tablets or sleeping pills) unless you get permission from the physician. Narcotics tend to cause constipation. If possible, drink plenty of fluids and eat a diet high in fiber and fruits. FOLLOW-UP CARE: If you have been referred to a physician for follow-up care, call the physicians office for an appointment as you were instructed or within the next two days. If you experience worsening or a significant change in your symptoms, notify the physician immediately or return to the Emergency Department at any time for re-evaluation. Prescriptions: Hydrocodone/Acetaminophen [[place] 5-325 mg Tablet] 1 tab PO Q6HP PRN #14 tablet PRN Reason: For Pain Scale 3-5 Valacyclovir HCl [Valtrex] 1,000 mg PO TID 7 Days #42 tablet Forms: Elevated Blood Pressure
[2019-12-25 13:21] VITALS: BP 146/102
== END 2019-12-25 13:29 | disposition home or self-care (01) ==
LOC: ER 12:55
DX: B02.9 Zoster without complications (principal)
CPT/HCPCS: 99282; J3490

== ENCOUNTER 2020-07-04 23:46 | Emergency (ER) | payer MEDICAID ==
[2020-07-05] MEDS ORDERED: AMOXICILLIN TRIHYDRATE 500 MG CAPSULE PO ONE (00:20)
[2020-07-05] MEDS ORDERED: KETOROLAC TROMETHAMINE 60 MG/2 ML SDV IM ONE (00:21)
--- NOTE | 2020-07-05 00:26 | ER Document Report ---
ED Oral Problem - General Chief Complaint: Toothache Stated Complaint: TOOTHEACHE Time Seen by Provider: 07/05/20 00:18 Notes: CHIEF COMPLAINT: Dental pain HPI: 34-year-old male presenting for dental pain left lower molars. Hurts to chew. Has been ongoing for 3 to 4 days. Has had issues with these teeth previously. States he has an appointment in 3 weeks with a dentist. No fever. ROS: See HPI - all other systems were reviewed and are otherwise negative Constitutional: no fever Eyes: no drainage, no blurred vision ENT: no runny nose, no sore throat, positive dental pain Integumentary: no rash Allergy: no hives MEDICATIONS: I agree with the patient medications as charted by the RN. ALLERGIES: I agree with the allergies as charted by the RN. PAST MEDICAL HISTORY/PAST SURGICAL HISTORY: Reviewed and agree as charted by RN. SOCIAL HISTORY: Reviewed and agree as charted by RN. FAMILY HISTORY: No significant familial comorbid conditions directly related to patient complaint EXAM: Reviewed vital signs as charted by RN. CONSTITUTIONAL: Alert and oriented and responds appropriately to questions. Well-appearing; well-nourished HEAD: Normocephalic; atraumatic EYES: PERRL; Conjunctivae clear, sclerae non-icteric ENT: normal nose; no rhinorrhea; moist mucous membranes; pharynx without lesions noted, no uvula edema or deviation, no tonsillar hypertrophy, phonation normal. Multiple gold caps on multiple teeth making definitive identification of dental caries difficult. There is soft tissue swelling adjacent to the left lower second molar with some erythema of the gum but no definitive fluctuant abscess. No trismus. No sublingual swelling. NECK: Supple without meningismus; non-tender; no cervical lymphadenopathy, no masses CARD: Capillary refill less than 3 seconds RESP: Normal chest excursion without splinting or tachypnea ABD/GI: non-distended BACK: The back appears normal EXT: Normal ROM in all joints; no cyanosis, no effusions, no edema SKIN: Normal color for age and race; warm; dry; good turgor NEURO: Moves all extremities equally; Motor and sensory function intact PSYCH: The patient's mood and manner are appropriate. Grooming and personal hygiene are appropriate. MDM: 34-year-old male with dental pain for several days. Does have some soft tissue swelling in the gingiva lateral to the lower molars. No definitive abscess for incision and drainage today will start on antibiotics short course of pain medication patient has a dentist for follow-up apparently TRAVEL OUTSIDE OF THE [place] IN LAST 30 DAYS: No - Related Data Allergies/Adverse Reactions: No Known Allergies Allergy (Verified 11/03/19 07:25) Past Medical History - Social History Smoking Status: Current Some Day Smoker Family History: COPD, Hypertension, Malignancy - Past Medical History Cardiac Medical History: Denies: Hx Hypercholesterolemia, Hx Hypertension Pulmonary Medical History: Reports: Hx Pneumonia Denies: Hx Asthma, Hx COPD Neurological Medical History: Denies: Hx Seizures Endocrine Medical History: Denies: Hx Diabetes Mellitus Type 1, Hx Diabetes Mellitus Type 2 Musculoskeletal Medical History: Denies Hx Arthritis Psychiatric Medical History: Denies: Hx Depression Infectious Medical History: 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 - Immunizations Immunizations up to date: Yes Hx Diphtheria, Pertussis, Tetanus Vaccination: Yes Physical Exam - Vital signs Vitals: Temp Pulse Resp BP Pulse Ox 98.2 F 71 20 151/108 H 99 07/05/20 00:03 07/05/20 00:03 07/05/20 00:03 07/05/20 00:03 07/05/20 00:03 Course - Vital Signs Vital signs: Temp Pulse Resp BP Pulse Ox 98.2 F 71 20 151/108 H 99 07/05/20 00:03 07/05/20 00:03 07/05/20 00:03 07/05/20 00:03 07/05/20 00:03 Discharge - Discharge Clinical Impression: Pain due to dental caries Condition: Stable Disposition: HOME, SELF-CARE Instructions: Toothache ([facility]), Oral Narcotic Medication ([facility]) Additional Instructions: 1. Take the medications as prescribed, if you were written antibiotics make sure that you finish them. 2. You need to follow up with a dentist for definitive evaluation and care of your dental problems 3. return to the ED for any facial swelling, fever > 101, difficulty swallowing or opening the mouth. 4. You may attempt to follow up with the [facility] for further care as well as through the dental list provided. 5. you may want to consider a dental discount plan such as [email or web address] to help with costs of dental care as you do not have dental insurance Prescriptions: Amoxicillin 1 tab PO TID #30 tab Hydrocodone/Acetaminophen [[place] 5-325 mg Tablet] 1 tab PO Q4 PRN #10 tablet PRN Reason: Diclofenac Sodium [Voltaren 50 Mg Tablet.] 50 mg PO BID #20 tablet.
[2020-07-05 03:18] VITALS: BP 140/87
== END 2020-07-05 01:15 | disposition home or self-care (01) ==
LOC: ER 23:46
DX: K02.9 Dental caries, unspecified (principal); K08.89 Other specified disorders of teeth and supporting structures; K06.8 Other specified disorders of gingiva and edentulous alveolar ridge; F17.200 Nicotine dependence, unspecified, uncomplicated; Z21 Asymptomatic human immunodeficiency virus [HIV] infection status
CPT/HCPCS: 99284; J1885